=== PATIENT | female | born 1960 | race Caucasian/White ===

== ENCOUNTER → 2017-12-14 | Outpatient (CLI) | payer OTHER ==
--- NOTE | 2017-12-14 14:38 | FL ---
EXAMINATION TYPE: FL barium swallow w video DATE OF EXAM: 12/14/2017 COMPARISON: NONE HISTORY: Difficulty swallowing post carbohydrate ingestion TECHNIQUE: Fluoroscopy. FINDINGS: Fluoroscopic guidance was provided for the procedure performed in conjunction with the [facility] pathology department. Please see complete report forthcoming from the Speech Pathology departmen t. Various consistencies from thin liquid to solids were administered. Fluoroscopy time 54 seconds Number of images: 0. No aspiration or penetration was evident. No significant pooling was observed in the vallecula. There was normal propulsion of the bolus. Patient did not have any of her typical symptoms during this examination. IMPRESSION: 1. Normal modified barium swallow.
== END | disposition home or self-care (01) ==
LOC: RADFLWHC 09:48
PROVIDERS: ATTEND Family Medicine
DX: R13.10 Dysphagia, unspecified (principal)
CPT/HCPCS: 74230

== ENCOUNTER → 2019-07-18 | Outpatient (CLI) | payer MEDICARE, OTHER ==
[2019-07-18 12:38] VITALS: BP 140/76; PULSE 86; TEMP 98.1; BMI 44.0
--- NOTE | 2019-07-18 13:01 | P.HPBAR ---
Bariatric H&P - History & Physicial H&P Date: 07/18/19 History & Physicial: Visit/CC: initial clinic visit Patient initial contact: Initial weight: Initial weight in pounds: Height: 5 ft 2 in Initial BMI: Last weight: Current weight: 109.316 kg Current weight in pounds: 241.00 Current BMI: 44.0 [place] body weight (based on NIH guidelines): 49.895 kg Excess body weight loss: The patient is a 58 year-old F who presents for Bariatric Assessment. Patient known to our service from previous bariatric evaluation at [facility]. Patient interested in sleeve gastrectomy. The patient has history of diabetes, hypertension, hypercholesterolemia, asthma, GERD. Last EGD 2014. No hiatal hernia seen. Denies dysphagia. No history of DVT. No significant abdominal surgeries. The patient is a nonsmoker. BMI 44. Patient is no longer working because of visual problems related to her underlying diabetes. Patient used to work in endoscopy. Not interested in gastric bypass partly on the basis of her previous exposure to bypass complications. Review of Systems The patient denies any acute changes in vision or hearing, no dysphagia or odynophagia, no chest pain or shortness of breath, no dysuria or hematuria, no headache, no runny nose, no rectal bleeding or melena, no unexplained weight loss Past Medical History Past Medical History: Diabetes Mellitus, GERD/Reflux, Hyperlipidemia, Muscu loskeletal Disorder Additional Past Medical History / Comment(s): SOME NUMBESS LEFT HAND CAUSED FROM NERVE DAMAGE AFTER NECK SUGERY.CHRONIC BACK PAIN, HX OF BOILS-STATES CURRENTLY HAS ONE IN GROIN AREA DENIES DRAINAGE. STATES ABD CYST THAT HAS GROWN & IS PAINFUL, RED & WARM-DENIES DRAINAGE. STATES TAKING LOSARTAN FOR KIDNEYS. History of Any Multi-Drug Resistant Organisms: None Reported Past Surgical History: Back Surgery, Section, Orthopedic Surgery, Tubal Ligation Additional Past Surgical History / Comment(s): RT EYE VITRECTOMY, CERVICAL NECK FUSION, RT ROTATOR CUFF, RT CARPAL TUNNEL RELEASE. Past Anesthesia/Blood Transfusion Reactions: No Reported Reaction Past Psychological History: No Psychological Hx Reported Smoking Status: Never smoker Past Alcohol Use History: None Reported Past Drug Use History: None Reported Surgical - Exam Vital Signs Temp Pulse BP 98.1 F 86 140/76 07/18/19 12:34 07/18/19 12:34 07/18/19 12:34 Physical exam: General: Well-developed, well-nourished HEENT: Normocephalic, sclerae nonicteric Abdomen: Nontender, nondistended, left subcostal scar from previous subcutaneous mass excision Extremities: No edema Neuro: Alert and oriented Bariatric Assessment & Plan (1) Morbid obesity with BMI of 40.0-44.9, adult Narrative/Plan: 58-year-old female with history of morbid obesity and associated comorbidities. BMI 44. We'll proceed with preoperative EGD and lab work. We'll clarify whether the patient requires supervised weight loss. Patient remains interested in sleeve gastrectomy despite the potential increased risk of worsening reflux. The risks of bleeding, infection, stenosis, stricture, leak, abscess, fistula formation, peritonitis, poor weight loss, reflux, vomiting, conversion to an open procedure, aborting sleeve gastrectomy, OR, PE, DVT, and were discussed. The patient understands and wishes to proceed. Status: Acute Bariatric Checklist Checklist: Plan: Checklist: EGD: 1. Hiatal hernia: 2. H. Pylori: HgbA1c: Vitamin D: Smoking: Never smoker Primary care physician referral: dr nuno Psychiatry clearance: Cardiology clearance: Sleep study: Diet journal: VTE risk score: VTE risk level: Rehab needs at discharge:
[2019-07-19 10:38] LABS: HCT 41.7 % (34.0-46.0); HGB 13.4 gm/dL (11.4-16.0); MCH 29.5 pg (25.0-35.0); MCHC 32.1 g/dL (31.0-37.0); MCV 91.9 fL (80.0-100.0); Platelet Count 211 k/uL (150-450); RBC 4.53 m/uL (3.80-5.40); RDW 13.4 % (11.5-15.5); WBC 10.4 k/uL (3.8-10.6)
[2019-07-19 10:39] LABS: Hypochromasia Slight; Mean Platelet Volume 7.6
[2019-07-19 10:42] LABS: Hemoglobin A1C 9.3
[2019-07-19 10:53] LABS: Carbon Dioxide 27.6; Potassium 4.5
[2019-07-19 10:54] LABS: Anion Gap 7.4
[2019-07-19 10:57] LABS: BUN/Creat Ratio 23.75
[2019-07-19 10:58] LABS: Calcium 9.9
[2019-07-19 11:00] LABS: % Iron Saturation 14.33; Total Protein 6.7
[2019-07-19 11:01] LABS: Albumin 4.4
[2019-07-19 11:02] LABS: Albumin/Globulin Ratio 1.91; Globulin 2.3
[2019-07-19 11:03] LABS: Total Bilirubin 0.4
[2019-07-19 11:05] LABS: Folate, Serum 12.9
[2019-07-19 11:06] LABS: African American GFR (CKD) 96.9; Non-African American GFR(CKD) 83.6
== END | disposition home or self-care (01) ==
LOC: BARWHC3 11:54
PROVIDERS: ATTEND Surgery
DX: E66.01 Morbid (severe) obesity due to excess calories (principal); Z68.41 Body mass index [BMI] 40.0-44.9, adult; K90.89 Other intestinal malabsorption; E55.9 Vitamin D deficiency, unspecified; Z98.51 Tubal ligation status
CPT/HCPCS: 80053; 82306; 82607; 82746; 83036; 83540; 83550; 84425; 85027; 93005; 99211

== ENCOUNTER 2019-08-20 07:26 | Day surgery (SDC) | payer MEDICARE, OTHER ==
[2019-08-16 16:03] VITALS: BMI 43.1
[~2019-08-20 07:26] MED LIST: LACTATED RINGERS 1,000 ML IV SCH
[2019-08-20 07:46] VITALS: TEMP 97.6
[2019-08-20 08:00] LABS: Glucose,Whole Blood 131 mg/dL (75-99)
[2019-08-20] MEDS ORDERED: LIDOCAINE 1% INJ 10MG/ML (20 ML MDV) ONE (08:06)
[2019-08-20] MEDS ORDERED: PROPOFOL 10 MG/ML 20 ML VIAL IV ONE (08:06)
--- NOTE | 2019-08-20 08:09 | P.GSHP ---
History of Present Illness H&P Date: 08/20/19 Chief Complaint: GERD Patient here today for upper endoscopy. Patient being worked up for sleeve gastrectomy. Patient with daily reflux. Typically takes Tums. She does have a prescription for Prevacid but typically does not take it. Past Medical History Past Medical History: Diabetes Mellitus, GERD/Reflux, Hyperlipidemia, Hypertension, Musculoskeletal Disorder, Osteoarthritis (OA) Additional Past Medical History / Comment(s): SOME NUMBESS LEFT HAND CAUSED FROM NERVE DAMAGE AFTER NECK SUGERY.CHRONIC BACK PAIN, HX OF BOILS-STATES CURRENTLY HAS ONE IN GROIN AREA DENIES DRAINAGE. STATES ABD CYST THAT HAS GROWN & IS PAINFUL, RED & WARM-DENIES DRAINAGE. STATES TAKING LOSARTAN FOR KIDNEYS. History of Any Multi-Drug Resistant Organisms: None Reported Past Surgical History: Back Surgery, Section, Orthopedic Surgery, Tubal Ligation Additional Past Surgical History / Comment(s): RT EYE VITRECTOMY, CERVICAL NECK FUSION, RT ROTATOR CUFF, RT CARPAL TUNNEL RELEASE.EGD X2, COLONOSCOPY Past Anesthesia/Blood Transfusion Reactions: No Reported Reaction Past Psychological History: No Psychological Hx Reported Smoking Status: Never smoker Past Alcohol Use History: None Reported Past Drug Use History: None Reported - Past Family History Mother Family Medical History: No Reported History Medications and Allergies Home Medications Medication Instructions Recorded Confirmed Type metFORMIN HCL 1,000 mg PO BID 03/20/14 08/16/19 History L.acidoph,Paracasei, B.lactis 1 tab PO DAILY 07/18/19 08/16/19 History [Probiotic] Atorvastatin [Lipitor] 80 mg PO HS 08/16/19 08/16/19 History Dapagliflozin Propanediol [Farxiga] 10 mg PO DAILY 08/16/19 08/16/19 History Dulaglutide [Trulicity] 0.75 mg SQ DAILY 08/16/19 08/16/19 History INSULIN LISPRO (For Pump) [humaLOG 0.01 units SQ-PUMP CONTINUOUS 08/16/19 08/16/19 History (For Pump)] Lisinopril-Hctz 10-12.5 mg 1 tab PO DAILY 08/16/19 08/16/19 History [Zestoretic 10-12.5] Allergies Allergy/AdvReac Type Severity Reaction Status Date / Time losartan potassium Allergy Severe Dyspnea, Verified 08/16/19 15:38 [From Cozaar] Heart palpitations Iodinated Contrast Media Allergy Unknown ELEVATED Verified 08/16/19 15:38 [Iodinated Contrast Media - BP AND IV Dye] PULSE IV CONTRAST DYE Allergy Unknown Elevated Uncoded 08/16/19 15:38 Blood pressure & pulse. MARQUES SHAMPOO Allergy Swelling Uncoded 08/16/19 15:39 OF FACE Surgical - Exam Vital Signs Temp Pulse Resp BP Pulse Ox 97.6 F 90 20 176/81 98 08/20/19 07:42 08/20/19 07:42 08/20/19 07:42 08/20/19 07:42 08/20/19 07:42 Physical exam: General: Well-developed, well-nourished HEENT: Normocephalic, sclerae nonicteric Abdomen: Nontender, nondistended Extremities: No edema Neuro: Alert and oriented Results - Labs Abnormal Lab Results - Last 24 Hours (Table) 08/20/19 Range/Units 07:57 POC Glucose (mg/dL) 131 H (75-99) mg/dL Assessment and Plan (1) GERD (gastroesophageal reflux disease) Narrative/Plan: Will proceed with upper endoscopy at this time Current Visit: Yes Status: Acute Code(s): K21.9 - GASTRO-ESOPHAGEAL REFLUX DISEASE WITHOUT ESOPHAGITIS SNOMED Code(s): 258269927
--- NOTE | 2019-08-20 08:20 | P.PCN ---
Date of Procedure: 08/20/19 Procedure(s) Performed: Preoperative Dx: GERD, presurgical Postoperative Dx: Minimal gastritis, retained food Procedure: EGD with Bx Anesthesia: Sedation Endoscopist: Dr. Kulkarni Specimens: Antrum Endoscopic Procedure: The patient was on the endoscopy table in the left decubitus position. The Olympus gastroscope was inserted into the oropharynx and passed under direct visualization to the region of the third portion of the duodenum. From that point the scope was slowly withdrawn inspecting all surfac es carefully. There were no neoplastic inflammatory or polypoid lesions throughout the duodenum. The pylorus was widely patent. The stomach was carefully inspected. There was minimal gastritis present. The patient did have retained food in the stomach. A biopsy of the antrum took place to rule out H. pylori. Retroflexion revealed a normal hiatus. The esophagus was then carefully examined. There were no neoplastic inflammatory or polypoid lesions throughout the visualized esophagus. The patient was then taken to the recovery room in stable condition per anesthesia guidelines. Recommendations: Suspect gastroparesis given the findings of retained food. Will order a gastric emptying study. Follow-up bariatric clinic.
[2019-08-20 08:22] VITALS: PULSE 92; RESP 16
[2019-08-20 08:27] LABS: Glucose,Whole Blood 149 mg/dL (75-99)
[2019-08-20 08:38] VITALS: BP 132/74
== END 2019-08-20 08:55 ==
LOC: ORWHC2ENDO 07:26
PROVIDERS: ATTEND Surgery
DX: K21.9 Gastro-esophageal reflux disease without esophagitis (principal); K29.50 Unspecified chronic gastritis without bleeding; I10 Essential (primary) hypertension; E78.5 Hyperlipidemia, unspecified; E11.9 Type 2 diabetes mellitus without complications; M19.90 Unspecified osteoarthritis, unspecified site; Z88.8 Allergy status to other drugs, medicaments and biological substances; Z91.041 Radiographic dye allergy status; Z79.4 Long term (current) use of insulin; Z79.899 Other long term (current) drug therapy; Z96.41 Presence of insulin pump (external) (internal)
CPT/HCPCS: 43239; J2001; J2704; 88305

== ENCOUNTER → 2019-10-09 | Outpatient (CLI) | payer MEDICARE, OTHER ==
--- NOTE | 2019-10-09 12:26 | NM ---
EXAMINATION TYPE: NM gastric emptying static DATE OF EXAM: 10/09/2019 COMPARISON: NONE HISTORY: Gastroparesis Following administration of 2.1 mCi Tc 99m Sulfur Colloid with 4 OZ LIQUID EGGS, 1/2 PIECE OF TOAST, AND ICE WATER, projection images of the abdomen were obtained 10 minutes post ingestion. Patient Emptying Values 1 Hour 76 % 2 Hours 100 % 3 Hours 100 % 4 Hours 100 % Gastroesophageal reflux: None IMPRESSION: Gastric emptyin% gastric emptying at one hour suggests abnormally rapid emptying. Gastroesophageal reflux: None Gastric emptying normal percentage values: 30 minutes: <70% of retention (> 30% emptying) suggests abnormally fast emptying. 60 minutes: <90% retention (>10% emptying) is normal; less than 30% retention (>70% emptying) suggest s abnormally rapid emptying. 90 minutes: <65% retention (> 35% emptying) is normal. 120 minutes: <60% retention (> 40% emptying) is normal. 180 minutes: <30% retention (> 70% emptying) is normal. Gastric emptying T-1/2: Solid: The normal range is 60-105 minutes Liquid only: Normal range is 10-45 minutes. Liquid only-children: At 60 minutes, normal range is 44-58 % . Liquid only-infants: At 60 minutes, normal range is 32-64 %. Additional references: Gastric Emptying Scintigraphy [email or web address]://[email or web address]
== END | disposition home or self-care (01) ==
LOC: RADNMMAIN 06:58
PROVIDERS: ATTEND Surgery
DX: K31.84 Gastroparesis (principal)
CPT/HCPCS: 78264; A9541

== ENCOUNTER → 2019-10-29 | Outpatient (CLI) | payer MEDICARE, OTHER ==
[2019-10-29 15:33] VITALS: BP 139/68; PULSE 95; RESP 16; TEMP 98.2; BMI 44.2
--- NOTE | 2019-10-29 17:30 | P.BASOAP ---
Subjective Progress Note Date: 10/29/19 Principal diagnosis: Morbid obesity Patient returns to the clinic after recent EGD. Patient was found to have retained food. She was sent for gastric emptying study which showed a faster than average gastric emptying time. She would like to proceed with sleeve gastrectomy. Objective - Vital Signs Vital signs: Vital Signs Temp 98.2 F 10/29/19 15:30 Pulse 95 10/29/19 15:30 Resp 16 10/29/19 15:30 BP 139/68 10/29/19 15:30 Pulse Ox Intake & Output 10/28/19 10/29/19 10/29/19 18:59 06:59 18:59 Weight 109.769 kg - Exam Abdomen: Soft, nontender, nondistended Assessment/Plan (1) Morbid obesity with BMI of 40.0-44.9, adult Narrative/Plan: Overall patient doing well. We'll continue plans for elective sleeve gastrectomy. Gastric emptying study results reviewed with her. Discrepancy between the endoscopic findings and the study reviewed. Increased risk of chronic reflux from baseline discussed. She would like to proceed. Plan: Date: 10/29/19 Initial Weight: Initial BMI: Current Weight: 109.769 kg Current BMI: 44.2 Type of Surgery: Total Volume in Band: Previous Volume: Volume Removed: Volume Added: Band Size:
== END | disposition home or self-care (01) ==
LOC: BARWHC3 15:00
PROVIDERS: ATTEND Surgery
DX: E66.01 Morbid (severe) obesity due to excess calories (principal); Z68.41 Body mass index [BMI] 40.0-44.9, adult
CPT/HCPCS: 99211

== ENCOUNTER → 2019-11-04 | Outpatient (CLI) | payer MEDICARE, OTHER ==
[2019-11-04 13:44] VITALS: BMI 44.6
== END | disposition home or self-care (01) ==
LOC: BARWHC3 08:25
PROVIDERS: ATTEND Surgery
DX: E66.01 Morbid (severe) obesity due to excess calories (principal); Z71.3 Dietary counseling and surveillance
CPT/HCPCS: 97804

== ENCOUNTER 2020-01-13 09:24 | Inpatient (IN) | payer MEDICARE, OTHER ==
[~2020-01-13 09:24] MED LIST changes: +DEXAMETHASONE SOD PHOSPHATE 4 MG/ML 1 ML VIAL IV ONE; +HYDROmorphone 0.5 MG/0.5 ML SYRINGE IVP PRN; -LACTATED RINGERS 1,000 ML IV SCH; +LIDOCAINE 1% (10MG/ML) FOR IV START INTRADERMA PRN; +MIDAZOLAM 2 MG/2 ML VIAL IV PRN; +ONDANSETRON 4 MG/2 ML VIAL IVP ONE
[2020-01-13 10:15] LABS: Glucose,Whole Blood 115 mg/dL (75-99)
[2020-01-13] MEDS: LACTATED RINGERS 1,000 ML IV SCH (10:15)
[2020-01-13] MEDS ORDERED: ENOXAPARIN 40 MG/0.4 ML SYRINGE SQ STA (10:24)
--- NOTE | 2020-01-13 10:44 | P.GSHP ---
History of Present Illness H&P Date: 01/13/20 Chief Complaint: morbid obesity 59-year-old female known to our service. Here today for elective sleeve gastrectomy. Patient with history of diabetes, hypertension, hypercholesterolemia, asthma, and reflux. Underwent recent EGD which showed some retained gastric contents. Gastric emptying study showed quicker than normal gastric emptying. Only recently started complaining of some increased constipation. No rectal bleeding. Stools are firm. No other changes to the recent history of physical. No tobacco use. BMI 40. Previously was 44. Past Medical History Past Medical History: Diabetes Mellitus, GERD/Reflux, Hyperlipidemia, Hypertension, Musculoskeletal Disorder, Osteoarthritis (OA) Additional Past Medical History / Comment(s): CHRONIC BACK PAIN, HX OF BOILS- none currently, right hand pain related to neck problems, "put my back out" currently, recent severe constipation-thinks is probably related to low carl diet, stopped insulin pump this week because BS were so low History of Any Multi-Drug Resistant Organisms: None Reported Past Surgical History: Section, Orthopedic Surgery, Tubal Ligation Additional Past Surgical History / Comment(s): SHAMAR EYE VITRECTOMY, CERVICAL NECK FUSION, RT ROTATOR CUFF, RT CARPAL TUNNEL RELEASE.EGD X2, COLONOSCOPY, right thumb reattached after injury Past Anesthesia/Blood Transfusion Reactions: No Reported Reaction Smoking Status: Never smoker - Past Family History Mother Family Medical History: No Reported History Medications and Allergies Home Medications Medication Instructions Recorded Confirmed Type metFORMIN HCL 1,000 mg PO BID 03/20/14 01/13/20 History Atorvastatin [Lipitor] 80 mg PO HS 08/16/19 01/13/20 History Dapagliflozin Propanediol [Farxiga] 10 mg PO DAILY 08/16/19 01/13/20 History Lisinopril-Hctz 10-12.5 mg 1 tab PO DAILY 08/16/19 01/13/20 History [Zestoretic 10-12.5] Omeprazole [PriLOSEC] 20 mg PO AC-BRKFST 01/09/20 01/13/20 History Allergies Allergy/AdvReac Type Severity Reaction Status Date / Time losartan potassium Allergy Severe Dyspnea, Verified 01/13/20 10:00 [From Cozaar] Heart palpitations Iodinated Contrast Media Allergy Unknown ELEVATED Verified 01/13/20 10:00 [Iodinated Contrast Media - BP AND IV Dye] PULSE IV CONTRAST DYE Allergy Unknown Elevated Uncoded 01/13/20 10:00 Blood pressure & pulse. MARQUES SHAMPOO Allergy Swelling Uncoded 01/13/20 10:00 OF FACE Surgical - Exam Vital Signs Temp Pulse Resp BP Pulse Ox 97 F L 103 H 18 160/73 98 01/13/20 10:04 01/13/20 10:04 01/13/20 10:04 01/13/20 10:04 01/13/20 10:04 Physical exam: General: Well-developed, well-nourished HEENT: Normocephalic, sclerae nonicteric Abdomen: Nontender, nondistended Extremities: No edema Neuro: Alert and oriented Results - Labs Abnormal Lab Results - Last 24 Hours (Table) 01/13/20 Range/Units 10:12 POC Glucose (mg/dL) 115 H (75-99) mg/dL Assessment and Plan (1) Morbid obesity with BMI of 40.0-44.9, adult Narrative/Plan: Will proceed with elective laparoscopic sleeve gastrectomy at this time. The risks of bleeding, infection, stenosis, stricture, leak, abscess, fistula formation, peritonitis, poor weight loss, reflux, vomiting, conversion to an open procedure, aborting sleeve gastrectomy, MA, PE, DVT, and were discussed. The patient understands and wishes to proceed. Current Visit: No Status: Acute Code(s): E66.01 - MORBID (SEVERE) OBESITY DUE TO EXCESS CALORIES; Z68.41 - BODY MASS INDEX [BMI]40.0-44.9, ADULT SNOMED Code(s): 016512760
[2020-01-13] MEDS ORDERED: GLYCOPYRROLATE 0.2 MG/ML 2 ML VIAL ONE (11:00)
[2020-01-13] MEDS ORDERED: LIDOCAINE 1% INJ 10MG/ML (20 ML MDV) ONE (11:00)
[2020-01-13] MEDS ORDERED: ROCURONIUM 10 MG/ML (10 ML VIAL) IV ONE (11:00)
[2020-01-13] MEDS ORDERED: NEOSTIGMINE 1 MG/ML 10 ML VIAL ONE (11:00)
[2020-01-13] MEDS ORDERED: MIDAZOLAM 2 MG/2 ML VIAL ONE (11:00)
[2020-01-13] MEDS ORDERED: PROPOFOL 10 MG/ML 20 ML VIAL IV ONE (11:00)
[2020-01-13] MEDS ORDERED: SUCCINYLCHOLINE CHLORIDE 100 MG/5 ML SYR IV ONE (11:00)
[2020-01-13] MEDS ORDERED: HYDROmorphone (PF) 1 MG/ML ONE (11:00)
[2020-01-13] MEDS ORDERED: fentaNYL (PF) 50 MCG/ML 2 ML AMP ONE (11:00)
[2020-01-13] MEDS ORDERED: BUPIVACAINE (PF) 0.25% 30 ML VIAL SQ ONE ×2 (11:34)
[2020-01-13] MEDS ORDERED: LACTATED RINGERS 1,000 ML IV ONE ×2 (12:00)
[2020-01-13] MEDS ORDERED: NALOXONE 0.4 MG/ML 1 ML VIAL IV PRN (12:55)
[2020-01-13] MEDS ORDERED: HYDROmorphone 1 MG/ML 1 ML SYRINGE IVP PRN (12:55)
[2020-01-13] MEDS ORDERED: HYOSCYAMINE ORAL DROPS 1.875 MG/15 ML BOTTLE PO PRN (12:55)
[2020-01-13] MEDS ORDERED: diphenhydrAMINE 50 MG/ML 1 ML VIAL IVP PRN (12:55)
[2020-01-13] MEDS ORDERED: SIMETHICONE 40 MG/0.6 ML DROPS 2,000 MG/30 ML BOTTLE PO PRN (12:55)
--- NOTE | 2020-01-13 12:59 | P.OP ---
Date of Procedure: 01/13/20 Procedure(s) Performed: PREOPERATIVE DIAGNOSIS: Morbid obesity, hypertension, diabetes, hypercholesterolemia, GERD POSTOPERATIVE DIAGNOSIS: Same PROCEDURE: Laparoscopic sleeve gastrectomy SURGEON: Shad EBL: Minimal ANESTHESIA: General COMPLICATIONS: None OPERATIVE PROCEDURE: Patient was placed in the operating table in the supine position. She was placed under general anesthesia at that time. The abdomen was prepped and draped in sterile fashion after the patient was placed in lithotomy. A 5 mm optical trocar was used to enter the abdominal cavity in the left upper quadrant. Insufflation took place to 15 millimeters mercury. An additional right subxiphoid 5 mm trocar was then placed under direct visualization and then removed. 2 additional 5 mm trochars were placed in the right upper quadrant and left upper quadrant under direct visualization and a 15 mm trocar in the supraumbilical location. The liver was retracted using a medium Cindy liver retractor through the right subxiphoid trocar site. The hiatus was inspected. The patient had no visible hiatal hernia At that point I moved to the mid aspect of the greater curvature the stomach. The short gastric vasculature was divided using a LigaSure device proximally. I then switched and divided the short gastrics distally to a 3-4 cm from the pylorus. The dissection took place up to the left diaphragmatic crura at that point. The posterior short gastrics were likewise divided using the LigaSure device. Once the stomach was fully mobilized the blunt tipped 40-Polish bougie dilator was advanced into the stomach and advanced all the way to the prepyloric location. A black echelon 60 stapler was utilized and fired tangentially across the antrum taking care to avoid narrowing at the incisura angularis. Subsequent firings of the stapler took place. A second firing of the stapler was also a black load. A total of 3 green echelon 60 staplers with seam guard took place proximally staying on the outer edge of our dilator. Once we reached the most proximal portion of the stomach a single firing of the gold echelon 60 stapler without seen guard took place. The oral gastric tube was reinserted. The stomach was insufflated with approximately 100 mL of methylene blue. No evidence of leak or obstruction was seen. The distal aspect of the sleeve was then reapproximated to the gastrosplenic and gastrocolic ligament using a short running 2-0 strata fix suture. This was done to prevent kinking or twisting of the sleeve. Tisseel fibrin glue was used along the length of this staple line. The stomach remnant was removed from the 15 mm trocar site without difficulty. The fascia at the 15 more site was closed using interrupted 0 Vicryl sutures with the laparoscopic suture passer and Ayaan Abby technique. The insufflation was evacuated. The skin at all 5 incisions were closed using 4-0 Monocryl sutures. Skin glue was then applied. DISPOSITION: Stable to recovery room
[2020-01-13] MEDS: ONDANSETRON 4 MG/2 ML VIAL IVP PRN ×2 (13:12→22:44)
[2020-01-13] MEDS: ACETAMINOPHEN IV (For NPO) 1,000 MG in EMPTY BAG 1 BAG IVPB SCH (16:16)
[2020-01-13 16:38] LABS: Glucose,Whole Blood 150 mg/dL (75-99)
[2020-01-13] MEDS: ALBUTEROL NEBULIZED 2.5 MG/3 ML INHALATION SCH ×2 (17:19→20:01)
--- NOTE | 2020-01-13 20:58 | P.CONS ---
History of Present Illness - Reason for Consult Consult date: 01/13/20 medical management Requesting physician: Antione Kulkarni - Chief Complaint sleep gastrectomy - History of Present Illness Consultation: This is a very pleasant 59-year-old patient of Dr. Karlos Cortez. Chronic stable medical conditions include diabetes, GERD, hypertension, hyperlipidemia, osteoarthritis, chronic low back pain, right hand pain from cervical spine radiculopathy, has been on insulin pump recently. Patient has undergone sleeve gastrectomy. Some pain at the operative site. Slight nausea. Laying in bed. Has not iced use. No chest pain or shortness breath. Denies any cardiac history. Laying in bed Review of systems: GEN.: None EYES: None HEENT: None NECK: None RESPIRATORY: None CARDIOVASCULAR: None GASTROINTESTINAL: As above GENITOURINARY: None MUSCULOSKELETAL: Some joint pains LYMPHATICS: None HEMATOLOGICAL: None PSYCHIATRY: None NEUROLOGICAL: None Past medical history to include: GERD, diabetes, hypertension, hyperlipidemia, osteoarthritis, right cervical spine radiculopathy Social history: . Does not smoke or drink alcohol. Family history: Reviewed, noncontributory to presentation Physical examination: VITAL SIGNS: 98.5, 18, 16, 134/80, 95% on room air GENERAL: BMI 40.8, laying in bed, comfortable. EYES: Pupils equal. Conjunctiva normal. HEENT: External appearance of nose and ears normal, oral cavity grossly normal. NECK: JVD not raised; masses not palpable. HEART: First and second heart sounds are normal; no edema. LUNGS: Respiratory rate normal; clear to auscultation. ABDOMEN: Soft, tender, no guarding rigidity, liver spleen not palpable, no masses palpable. PSYCH: Alert and oriented x3; mood and affect normal. NEUROLOGICAL: Cranial nerves grossly intact; no facial asymmetry, power and sensation grossly intact. LYMPHATICS: No lymph nodes palpable in the axilla and neck Labs: Accu-Cheks 115, 150 Assessment: -Morbid obesity BMI 40.8 -Laparoscopic sleeve gastrectomy -Diabetes mellitus type 2 -GERD -Hyperlipidemia -Essential hypertension -Primary osteoarthritis -Cervical spine with right arm radiculopathy Plan: Patient's currently nothing by mouth except for ice chips. Resume home med ications if okay with Dr. Sebastian. activity as tolerated. Patient to follow-up with family doctor but discharge. Thank you Dr. [place] Past Medical History Past Medical History: Diabetes Mellitus, GERD/Reflux, Hyperlipidemia, Hypertension, Musculoskeletal Disorder, Osteoarthritis (OA) Additional Past Medical History / Comment(s): CHRONIC BACK PAIN, HX OF BOILS- none currently, right hand pain related to neck problems, "put my back out" currently, recent severe constipation-thinks is probably related to low carl diet, stopped insulin pump this week because BS were so low History of Any Multi-Drug Resistant Organisms: None Reported Past Surgical History: Section, Orthopedic Surgery, Tubal Ligation Additional Past Surgical History / Comment(s): SHAMAR EYE VITRECTOMY, CERVICAL NECK FUSION, RT ROTATOR CUFF, RT CARPAL TUNNEL RELEASE.EGD X2, COLONOSCOPY, right thumb reattached after injury Past Anesthesia/Blood Transfusion Reactions: No Reported Reaction Past Psychological History: No Psychological Hx Reported Smoking Status: Never smoker Past Alcohol Use History: None Reported Past Drug Use History: None Reported - Past Family History Mother Family Medical History: No Reported History Medications and Allergies Home Medications Medication Instructions Recorded Confirmed Type metFORMIN HCL 1,000 mg PO BID 03/20/14 01/13/20 History Atorvastatin [Lipitor] 80 mg PO HS 08/16/19 01/13/20 History Dapagliflozin Propanediol [Farxiga] 10 mg PO DAILY 08/16/19 01/13/20 History Lisinopril-Hctz 10-12.5 mg 1 tab PO DAILY 08/16/19 01/13/20 History [Zestoretic 10-12.5] Omeprazole [PriLOSEC] 20 mg PO AC-BRKFST 01/09/20 01/13/20 History Allergies Allergy/AdvReac Type Severity Reaction Status Date / Time losartan potassium Allergy Severe Dyspnea, Verified 01/13/20 10:00 [From Cozaar] Heart palpitations Iodinated Contrast Media Allergy Unknown ELEVATED Verified 01/13/20 10:00 [Iodinated Contrast Media - BP AND IV Dye] PULSE IV CONTRAST DYE Allergy Unknown Elevated Uncoded 01/13/20 10:00 Blood pressure & pulse. MARQUES SHAMPOO Allergy Swelling Uncoded 01/13/20 10:00 OF FACE Physical Exam Vitals: Vital Signs Temp Pulse Pulse Pulse Resp BP Pulse Ox 01/13/20 20:22 101 H 01/13/20 20:04 105 H 95 01/13/20 17:32 80 01/13/20 17:20 76 01/13/20 15:00 98.5 F 80 16 134/80 95 01/13/20 14:46 89 16 164/72 100 01/13/20 14:30 88 16 148/72 100 01/13/20 14:15 85 16 139/68 100 01/13/20 14:03 79 16 148/68 100 01/13/20 13:47 81 16 137/65 100 01/13/20 13:31 84 16 138/65 100 01/13/20 13:17 78 16 125/65 100 01/13/20 13:00 72 16 131/76 100 01/13/20 12:59 97.9 F 77 14 125/59 99 01/13/20 10:04 97 F L 103 H 18 160/73 98 Intake and Output 01/13/20 01/13/20 01/13/20 06:59 14:59 22:59 Intake Total 1550 Output Total 10 Balance 1540 Intake: IV 1550 Output: Estimated Blood Loss 10 Other: Weight 101.1 kg 101.1 kg Results Labs: Abnormal Lab Results - Last 24 Hours (Table) 01/13/20 01/13/20 Range/Units 10:12 16:37 POC Glucose (mg/dL) 115 H 150 H (75-99) mg/dL
[2020-01-13] MEDS ORDERED: LORazepam 2 MG/ML INJ IV PRN (21:32)
[2020-01-13] MEDS: IPRATROPIUM-ALBUTEROL 3 ML NEB INHALATION PRN (21:37)
[2020-01-13 21:48] LABS: Glucose,Whole Blood 186 mg/dL (75-99)
[2020-01-13] MEDS: 0.9% NACL WITH KCL 20 MEQ/L 1,000 ML IV SCH ×2 (22:13→22:37)
[2020-01-13] MEDS: ENOXAPARIN 40 MG/0.4 ML SYRINGE SQ SCH (22:13)
[2020-01-14] MEDS: ACETAMINOPHEN IV (For NPO) 1,000 MG in EMPTY BAG 1 BAG IVPB SCH ×4 (00:40→17:44)
--- NOTE | 2020-01-14 01:07 | P.EN ---
A team note Activated at 2114. Patient seen at the bedside shortly after. Patient aborted that she had developed acute wheezing and chest tightness while using her incentive spirometer. By time of my evaluation, the patient had reported that her wheezing had essentially resolved and that she felt significantly better. The patient's vitals at the bedside were BP 106/64, pulse 110, SpO2 98% on room air. The patient noted that she has a history of anxiety and that he has previously had episodes of panic attacks where she would develop chest discomfort and shortness of breath. The patient reported that this episode does feel similar to her previous panic attacks. She also noted history of mild intermittent asthma. On examination, the patient appeared to be somewhat anxious. Lung examination revealed mild expiratory wheezing with no rhonchi or rales. Lower extremity examination was unremarkable with no swelling, erythema, or tenderness noted. Cardiovascular examination revealed an audible S1 and S2 with regular rate and rhythm and no audible murmurs. The primary team ordered Ativan and DuoNeb's for the patient.
[2020-01-14] MEDS: 0.9% NACL WITH KCL 20 MEQ/L 1,000 ML IV SCH (05:48)
[2020-01-14 06:50] LABS: Glucose,Whole Blood 165 mg/dL (75-99)
[2020-01-14 07:02] LABS: Basophils % (A) 0 %; Eosinophils # (A) 0.1 k/uL (0-0.7); Eosinophils % (A) 1 %; HCT 37.6 % (34.0-46.0); HGB 11.9 gm/dL (11.4-16.0); Lymphocytes # (A) 1.5 k/uL (1.0-4.8); Lymphocytes % (A) 13 %; MCH 28.2 pg (25.0-35.0); MCHC 31.7 g/dL (31.0-37.0); MCV 88.8 fL (80.0-100.0); Mean Platelet Volume 7.5; Monocytes # (A) 0.6 k/uL (0-1.0); Monocytes % (A) 5 %; Neutrophils # (A) 9.7 k/uL (1.3-7.7); Neutrophils % (A) 81 %; Platelet Count 218 k/uL (150-450); RBC 4.23 m/uL (3.80-5.40); RDW 13.6 % (11.5-15.5)
[2020-01-14] MEDS: LACTATED RINGERS 1,000 ML IV SCH (07:19)
[2020-01-14] MEDS: IPRATROPIUM-ALBUTEROL 3 ML NEB INHALATION PRN (08:42)
[2020-01-14] MEDS: ALBUTEROL NEBULIZED 2.5 MG/3 ML INHALATION SCH ×4 (08:45→20:07)
[2020-01-14 09:26] LABS: African American GFR (CKD) 47.2 (60.0-200.0); Anion Gap 14.6 mmol/L (4.00-12.00); Calcium 9.4 mg/dL (8.7-10.3); Carbon Dioxide 23.4 mmol/L (21.6-31.8); Non-African American GFR(CKD) 40.7 (60.0-200.0); Potassium 4.8 mmol/L (3.5-5.5)
[2020-01-14] MEDS: ONDANSETRON 4 MG/2 ML VIAL IVP PRN (09:42)
[2020-01-14] MEDS: 1: MVI, ADULT NO.4 WITH VIT K 10 ML, THIAMINE 100 MG, FOLIC ACID 1 MG, POTASSIUM CHLORID IV SCH ×12 (11:10→20:25)
[2020-01-14] MEDS: ENOXAPARIN 40 MG/0.4 ML SYRINGE SQ SCH ×2 (11:11→22:19)
[2020-01-14] MEDS: PANTOPRAZOLE 40 MG/10 ML VIAL IV SCH (11:11)
[2020-01-14 11:33] LABS: Glucose,Whole Blood 143 mg/dL (75-99)
--- NOTE | 2020-01-14 11:46 | P.PN ---
<Bhargavi Long - Last Filed: 01/14/20 11:36> Subjective Progress Note Date: 01/14/20 CHIEF COMPLAINT: Morbid obesity HISTORY OF PRESENT ILLNESS: Status post laparoscopic sleeve gastrectomy, postop day #1. Patient complaining of stomach bloating with occasional nausea. Her upper GI is pending. Yesterday, MICHELLE was called for shortness of breath and wheezing while using her incentive spirometer. She was slightly tachycardic with a heart rate of 110 at the time otherwise vitals were stable. Patient has a known history of anxiety and felt that her symptoms were similar to when she has her panic attacks. Patient had been started on Ativan and updraft treatments. Patient reports feeling better today. She denies any shortness of breath or wheezing. She admits to an occasional cough. Patient now refusing updraft treatments. She is on room air satting at 98%. Heart rate 103 BP 146/78 Afebrile WBC12.0 hemoglobin 11.9 magnesium 2.0 PHYSICAL EXAM: VITAL SIGNS: Reviewed. GENERAL: Well-developed in no acute distress. HEENT: No sclera icterus. Extraocular movements grossly intact. Moist buccal mucosa. Head is atraumatic, normocephalic. ABDOMEN: Soft. mildly distended Nontender. NEUROLOGIC: Alert and oriented. Cranial nerves II through XII grossly intact. ASSESSMENT: 1. morbid obesity status post laparoscopic sleeve gastrectomy 2. Hypertension 3. Diabetes mellitus 4. Hypercholesterolemia 5. GERD PLAN: -follow-up on upper GI results -Continue pain medication as needed -Continue Zofran as needed for nausea -Educating nursing staff to use the Mylicon drops -Encouraged patient to ambulate -Continue Ativan as needed for anxiety -Continue GI prophylaxis Protonix and DVT prophylaxis Lovenox Physician Customer Security Clerk note has been reviewed by physician. Signing provider agrees with the documented findings, assessment, and plan of care. Objective - Vital Signs Vital signs: Vital Signs Temp 98.5 F 01/14/20 07:29 Pulse 103 H 01/14/20 07:29 Resp 18 01/14/20 07:29 BP 146/78 01/14/20 07:29 Pulse Ox 98 01/14/20 07:29 Intake & Output 01/13/20 01/14/20 01/14/20 18:59 06:59 18:59 Intake Total 1550 Output Total 10 Balance 1540 Weight 101.1 kg Intake: IV 1550 Output: Estimated Blood Loss 10 Other: Voiding Method Toilet - Labs CBC & Chem 7: 01/14/20 06:31 01/14/20 06:31 Labs: Abnormal Lab Results - Last 24 Hours (Table) 01/13/20 01/13/20 01/14/20 Range/Units 16:37 21:46 06:31 WBC 12.0 H (3.8-10.6) k/uL Neutrophils # 9.7 H (1.3-7.7) k/uL Anion Gap (4.00-12.00) mmol/L Est GFR (CKD-EPI)AfAm (60.0-200.0) Est GFR (CKD-EPI)NonAf (60.0-200.0) POC Glucose (mg/dL) 150 H 186 H (75-99) mg/dL 01/14/20 01/14/20 01/14/20 Range/Units 06:31 06:48 11:31 WBC (3.8-10.6) k/uL Neutrophils # (1.3-7.7) k/uL Anion Gap 14.60 H (4.00-12.00) mmol/L Est GFR (CKD-EPI)AfAm 47.2 L (60.0-200.0) Est GFR (CKD-EPI)NonAf 40.7 L (60.0-200.0) POC Glucose (mg/dL) 165 H 143 H (75-99) mg/dL <Antione Kulkarni - Last Filed: 01/14/20 18:47> Subjective Patient doing better today. Had an episode last night of anxiety and trouble breathing. That has resolved. Complaining of a headache. Otherwise pain fairly well controlled. No nausea or vomiting. Tolerating clear liquids. Upper GI reviewed. No evidence of leak or obstruction. Recheck labs tomorrow. We'll add Toradol for pain control. Objective - Vital Signs Vital signs: Vital Signs Temp 98.8 F 01/14/20 14:00 Pulse 93 01/14/20 14:00 Resp 18 01/14/20 14:00 BP 135/76 01/14/20 14:00 Pulse Ox 98 01/14/20 14:00 Intake & Output 01/13/20 01/14/20 01/14/20 18:59 06:59 18:59 Intake Total 1550 Output Total 10 Balance 1540 Weight 101.1 kg 101.1 kg Intake: IV 1550 Output: Estimated Blood Loss 10 Other: Voiding Method Toilet # Voids 2 - Labs CBC & Chem 7: 01/14/20 06:31 01/14/20 06:31 Labs: Abnormal Lab Results - Last 24 Hours (Table) 01/13/20 01/14/20 01/14/20 Range/Units 21:46 06:31 06:31 WBC 12.0 H (3.8-10.6) k/uL Neutrophils # 9.7 H (1.3-7.7) k/uL Anion Gap 14.60 H (4.00-12.00) mmol/L Est GFR (CKD-EPI)AfAm 47.2 L (60.0-200.0) Est GFR (CKD-EPI)NonAf 40.7 L (60.0-200.0) POC Glucose (mg/dL) 186 H (75-99) mg/dL 01/14/20 01/14/20 01/14/20 Range/Units 06:48 11:31 16:35 WBC (3.8-10.6) k/uL Neutrophils # (1.3-7.7) k/uL Anion Gap (4.00-12.00) mmol/L Est GFR (CKD-EPI)AfAm (60.0-200.0) Est GFR (CKD-EPI)NonAf (60.0-200.0) POC Glucose (mg/dL) 165 H 143 H 153 H (75-99) mg/dL Assessment and Plan (1) Morbid obesity with BMI of 40.0-44.9, adult Current Visit: No Status: Acute Code(s): E66.01 - MORBID (SEVERE) OBESITY DUE TO EXCESS CALORIES; Z68.41 - BODY MASS INDEX [BMI]40.0-44.9, ADULT SNOMED Code(s): 535520251
[2020-01-14 12:05] VITALS: BMI 40.7
--- NOTE | 2020-01-14 12:31 | FL ---
EXAMINATION TYPE: FL UGI DATE OF EXAM: 01/14/2020 COMPARISON: None HISTORY: Post gastric sleeve TECHNIQUE: A single contrast UGI study is performed. FINDINGS: Contrast passes from the distal esophagus through the gastric sleeve with mild hesitancy. N o extravasation of contrast is evident. No free air is noted during this examination. Overhead radiographs were obtained which are unremarkable. 30 seconds fluoroscopy time was provided. 49 images are obtained. IMPRESSIONS: 1. Normal post gastric sleeve with mild hesitancy. No extravasation.
[2020-01-14 16:38] LABS: Glucose,Whole Blood 153 mg/dL (75-99)
[2020-01-14] MEDS: KETOROLAC 15 MG/ML 1 ML VIAL IVP SCH (20:22)
[2020-01-14 20:26] LABS: Glucose,Whole Blood 114 mg/dL (75-99)
--- NOTE | 2020-01-14 23:58 | P.PN ---
Progress Note - Text Progress Note Date: 01/14/20 - Chief Complaint sleep gastrectomy - History of Present Illness Consultation: This is a very pleasant 59-year-old patient of Dr. Karlos Cortez. Chronic stable medical conditions include diabetes, GERD, hypertension, hyperlipidemia, osteoarthritis, chronic low back pain, right hand pain from cervical spine radiculopathy, has been on insulin pump recently. Patient has undergone sleeve gastrectomy. Today-laying in bed. Comfortable. Had some slight wheezing earlier today. No better. On a bariatric clear liquid diet Review of systems: Was done for constitutional, cardiovascular, GI, pulmonary. relevant finding as above Active Medications Albuterol Sulfate (Albuterol Nebulized 2.5 Mg/3 Ml) 2.5 mg INHALATION RT-QID [facility] Last Admin: 01/14/20 20:07 Dose: Not Given Documented by: Albuterol/Ipratropium (Ipratropium-Albuterol 3 Ml Neb) 3 ml INHALATION RT-Q4H PRN PRN Reason: Shortness Of Breath Or Wheezing Last Admin: 01/14/20 08:42 Dose: 3 ml Documented by: Diphenhydramine HCl (Diphenhydramine 50 Mg/Ml 1 Ml Vial) 25 mg IVP Q6HR PRN PRN Reason: Itching Enoxaparin Sodium (Enoxaparin 40 Mg/0.4 Ml Syringe) 40 mg SQ Q12H [facility] Last Admin: 01/14/20 22:19 Dose: 40 mg Documented by: Hydromorphone HCl (Hydromorphone 1 Mg/Ml 1 Ml Syringe) 1 mg IVP Q3HR PRN PRN Reason: Pain Last Admin: 01/13/20 16:15 Dose: 1 mg Documented by: Hyoscyamine (Hyoscyamine Oral Drops 1.875 Mg/15 Ml Bottle) 0.125 mg PO Q6HR PRN PRN Reason: Esophageal Spasm Lactated Ringer's (Lactated Ringers) 1,000 mls @ 20 mls/hr IV .Q24H [facility] Last Admin: 01/14/20 07:19 Dose: Not Given Documented by: Parenteral Vitamin Supplement 10 ml/ Thiamine HCl 100 mg/Folic Acid 1 mg/ Potassium Chloride 20 meq/ Sodium Chloride 1,021.2 mls @ 100 mls/hr IV .BY DURATION [facility] Last Admin: 01/14/20 11:10 Dose: 100 mls/hr Documented by: Potassium Chloride/Sodium Chloride (Ns-Kcl 20 Meq/L Iv Solution) 1,000 mls @ 100 mls/hr IV .BY DURATION [facility] Last Admin: 01/14/20 20:25 Dose: Not Given Documented by: Acetaminophen 1,000 mg/ IV (Solution) 100 mls @ 400 mls/hr IVPB Q6HR [facility] Last Admin: 01/14/20 17:44 Dose: 400 mls/hr Documented by: Ketorolac Tromethamine (Ketorolac 15 Mg/Ml 1 Ml Vial) 15 mg IVP Q6HR [facility] Stop: 01/17/20 19:01 Last Admin: 01/14/20 20:22 Dose: 15 mg Documented by: Lidocaine HCl (Lidocaine 1% (10mg/Ml) For Iv Start) 0.1 ml INTRADERMA PER PROTOCOL PRN PRN Reason: IV Start Last Admin: 01/13/20 10:16 Dose: 0.1 ml Documented by: Lorazepam (Lorazepam 2 Mg/Ml Inj) 1 mg IV Q4HR PRN PRN Reason: Anxiety Last Admin: 01/13/20 22:14 Dose: 1 mg Documented by: Naloxone HCl (Naloxone 0.4 Mg/Ml 1 Ml Vial) 0.2 mg IV Q2M PRN PRN Reason: Opioid Reversal Ondansetron HCl (Ondansetron 4 Mg/2 Ml Vial) 4 mg IVP Q8HR PRN PRN Reason: Nausea And Vomiting Last Admin: 01/14/20 09:42 Dose: 4 mg Documented by: Pantoprazole Sodium (Pantoprazole 40 Mg/10 Ml Vial) 40 mg IV DAILY [facility] Last Admin: 01/14/20 11:11 Dose: 40 mg Documented by: Simethicone (Simethicone 40 Mg/0.6 Ml Drops 2,000 Mg/30 Ml Bottle) 40 mg PO Q6HR PRN PRN Reason: Bloating Physical examination: VITAL SIGNS: 98.8, 93, 18, 135 with 76, 98% room air GENERAL: BMI 40.8, laying in bed, comfortable. EYES: Pupils equal. Conjunctiva normal. NECK: JVD not raised; masses not palpable. HEART: First and second heart sounds are normal; no edema. LUNGS: Respiratory rate normal; clear to auscultation. ABDOMEN: Soft, tender, no guarding rigidity, liver spleen not palpable, no masses palpable. PSYCH: Alert and oriented x3; mood and affect normal. Labs: January 13: White count 12 hemoglobin 11.9 potassium 4.8 creatinine 1.4 Accu-Cheks 115, 150 Assessment: -Morbid obesity BMI 40.8 -Laparoscopic sleeve gastrectomy -Diabetes mellitus type 2 -GERD -Hyperlipidemia -Essential hypertension -Primary osteoarthritis -Cervical spine with right arm radiculopathy Plan: Continue with bariatric clear liquid diet. Other medications to continue. Follow Accu-Cheks. Hold off any hypoglycemics. Discussed with the patient. Thank you Dr. Sebastian
[2020-01-15] MEDS: KETOROLAC 15 MG/ML 1 ML VIAL IVP SCH ×3 (00:12→14:40)
[2020-01-15] MEDS: ACETAMINOPHEN IV (For NPO) 1,000 MG in EMPTY BAG 1 BAG IVPB SCH ×3 (00:13→14:39)
[2020-01-15] MEDS: 1: MVI, ADULT NO.4 WITH VIT K 10 ML, THIAMINE 100 MG, FOLIC ACID 1 MG, POTASSIUM CHLORID IV SCH ×12 (04:44)
[2020-01-15] MEDS: LACTATED RINGERS 1,000 ML IV SCH (04:52)
[2020-01-15 06:39] LABS: Basophils % (A) 0 %; Eosinophils # (A) 0.2 k/uL (0-0.7); Eosinophils % (A) 2 %; HCT 34.6 % (34.0-46.0); HGB 11.2 gm/dL (11.4-16.0); Lymphocytes # (A) 1.8 k/uL (1.0-4.8); Lymphocytes % (A) 21 %; MCH 28.8 pg (25.0-35.0); MCHC 32.4 g/dL (31.0-37.0); Mean Platelet Volume 7.3; Monocytes # (A) 0.4 k/uL (0-1.0); Monocytes % (A) 5 %; Neutrophils # (A) 5.9 k/uL (1.3-7.7); Neutrophils % (A) 71 %; Platelet Count 164 k/uL (150-450); RBC 3.89 m/uL (3.80-5.40); RDW 13.6 % (11.5-15.5); WBC 8.4 k/uL (3.8-10.6)
[2020-01-15 06:40] LABS: Glucose,Whole Blood 114 mg/dL (75-99)
[2020-01-15 07:54] VITALS: BP 110/71; PULSE 72; RESP 18; TEMP 97.5
[2020-01-15] MEDS: PANTOPRAZOLE 40 MG/10 ML VIAL IV SCH (08:53)
[2020-01-15] MEDS: ENOXAPARIN 40 MG/0.4 ML SYRINGE SQ SCH (08:53)
[2020-01-15] MEDS: ALBUTEROL NEBULIZED 2.5 MG/3 ML INHALATION SCH ×2 (09:13→12:53)
[2020-01-15 11:35] LABS: Glucose,Whole Blood 131 mg/dL (75-99)
--- NOTE | 2020-01-15 12:15 | P.DS ---
<Bhargavi Long - Last Filed: 01/15/20 12:13> Providers Expected date of discharge: 01/15/20 Hospital Course: Discharge diagnosis 1. morbid obesity status post laparoscopic sleeve gastrectomy 2. Hypertension 3. Diabetes mellitus 4. Hypercholesterolemia 5. GERD Hospital course This is a 59-year-old female with a known history of morbid obesity, hypertension, diabetes mellitus type 2, hypercholesterolemia and GERD. She is status post laparoscopic sleeve gastrectomy. Patient tolerated surgery well. Upper GI results which showed normal post gastric sleeve with mild hesitancy. No extravasation. No evidence of leak. Patient is tolerating diet. Her pain is controlled. She's afebrile. She is up and ambulating. She is having flatus. Patient is stable for discharge home. Please refer to chart for any further details. Physician Cement Truck Loader note has been reviewed by physician. Signing provider agrees with the documented findings, assessment, and plan of care. Patient Condition at Discharge: Stable Plan - Discharge Summary Discharge Rx Participant: Yes New Discharge Prescriptions: New bisacodyL [Dulcolax] 5 mg PO DAILY PRN #10 tablet. PRN Reason: Constipation Simethicone 40 mg/0.6 ml Drops [Mylicon Drops] 40 mg PO [facility] PRN #30 ml PRN Reason: Gas Omeprazole [PriLOSEC] 40 mg PO DAILY #30 capsule. traMADol HCL [Ultram] 50 mg PO Q6HR PRN 3 Days #12 tab PRN Reason: Pain Ondansetron Odt [Zofran Odt] 4 mg PO Q8HR PRN #9 tab PRN Reason: Nausea Continue Lisinopril-Hctz 10-12.5 mg [Zestoretic 10-12.5] 1 tab PO DAILY Atorvastatin [Lipitor] 80 mg PO HS Discontinued metFORMIN HCL 1,000 mg PO BID Dapagliflozin Propanediol [Farxiga] 10 mg PO DAILY Omeprazole [PriLOSEC] 20 mg PO [facility] Discharge Medication List Atorvastatin [Lipitor] 80 mg PO HS 08/16/19 [History] Lisinopril-Hctz 10-12.5 mg [Zestoretic 10-12.5] 1 tab PO DAILY 08/16/19 [History] Omeprazole [PriLOSEC] 40 mg PO DAILY #30 capsule. 01/15/20 [Rx] Ondansetron Odt [Zofran Odt] 4 mg PO Q8HR PRN #9 tab 01/15/20 [Rx] Simethicone 40 mg/0.6 ml Drops [Mylicon Drops] 40 mg PO [facility] PRN #30 ml 01/15/20 [Rx] bisacodyL [Dulcolax] 5 mg PO DAILY PRN #10 tablet. 01/15/20 [Rx] traMADol HCL [Ultram] 50 mg PO Q6HR PRN 3 Days #12 tab 01/15/20 [Rx] Follow up Appointment(s)/Referral(s): Antione Kulkarni MD [Medical Doctor] - 01/17/20 10:00 am Karlos Cortez MD [Primary Care Provider] - 1 Week (Please call office for your appointment.) Patient Instructions/Handouts: Nutrition after Bariatric Surgery (DC), Laparoscopic Sleeve Gastrectomy (DC), Laparoscopic Sleeve Gastrectomy (GEN) Activity/Diet/Wound Care/Special Instructions: No driving while taking ultram No lifting over 10 pounds You may shower. No soaking or tub baths for 2 weeks Very light activity until you are reevaluated at your follow up appointment with your surgeon No straws, caffeine or carbonated beverages Cut or crush all pills to smaller than the size of a tic tac check AC daily am- keep log daily am BP check Discharge Disposition: HOME SELF-CARE <Antione Kulkarni - Last Filed: 01/15/20 17:19> Providers Date of admission: 01/13/20 09:24 Attending physician: Antione Kulkarni Consults: 01/13/20 12:55 Consult Physician Routine Consulting Provider: Artem Dominguez Consult Reason/Comments: medical management Do you want consulting provider notified?: Yes Primary care physician: Karlos Cortez - Discharge Diagnosis(es) (1) Morbid obesity with BMI of 40.0-44.9, adult Status: Acute Hospital Course: As above. Patient doing well today. Tolerating liquids. May discharge. Follow-up one week.
--- NOTE | 2020-01-16 19:42 | P.PN ---
Progress Note - Text Progress Note Date: 01/15/20 - Chief Complaint sleep gastrectomy Consultation: This is a very pleasant 59-year-old patient of Dr. Karlos Cortez. Chronic stable medical conditions include diabetes, GERD, hypertension, hyperlipidemia, osteoarthritis, chronic low back pain, right hand pain from cervical spine radiculopathy, has been on insulin pump recently. Patient has undergone sleeve gastrectomy. Today-doing well. Ambulating. Pain control. Tolerating bariatric liquid diet. Discussed with the patient. To hold off oral hypoglycemics. Follow Accu- Cheks. Review of systems: Was done for constitutional, cardiovascular, GI, pulmonary. relevant finding as above Current medications reviewed in today's electronic records Physical examination: VITAL SIGNS: 97.5, 72, 18, 110/71, 95% room air GENERAL: Sitting up in a chair, comfortable EYES: Pupils equal. Conjunctiva normal. NECK: JVD not raised; masses not palpable. HEART: First and second heart sounds are normal; no edema. LUNGS: Respiratory rate normal; clear to auscultation. ABDOMEN: Soft, non-tender, no guarding rigidity, liver spleen not palpable, no masses palpable. PSYCH: Alert and oriented x3; mood and affect normal. Labs: January 14: White count 8.4 hemoglobin 11.2 platelets 164 Ohdl-Hweip-110, 131 January 13: White count 12 hemoglobin 11.9 potassium 4.8 creatinine 1.4 Accu-Cheks 115, 150 Assessment: -Morbid obesity BMI 40.8 -Laparoscopic sleeve gastrectomy -Diabetes mellitus type 2 -GERD -Hyperlipidemia -Essential hypertension -Primary osteoarthritis -Cervical - right arm radiculopathy Plan: Discontinue oral hypoglycemics. Check Accu-Cheks daily. Discussed with preet kee Thank you Dr. Sebastian
== END 2020-01-15 15:52 | disposition home or self-care (01) | DRG 621 ==
LOC: 2ORMAIN 09:24 → 4SSUR 14:52
PROVIDERS: ADMIT Surgery; ATTEND Surgery
PROC: 0DB64Z3 Excision of Stomach, Percutaneous Endoscopic Approach, Vertical (ICD-10-PCS; principal; 2020-01-13 11:15)
DX: E66.01 Morbid (severe) obesity due to excess calories (principal); E11.9 Type 2 diabetes mellitus without complications; Z68.41 Body mass index [BMI] 40.0-44.9, adult; J45.20 Mild intermittent asthma, uncomplicated; E78.00 Pure hypercholesterolemia, unspecified; E78.5 Hyperlipidemia, unspecified; F41.0 Panic disorder [episodic paroxysmal anxiety]; I10 Essential (primary) hypertension; K21.9 Gastro-esophageal reflux disease without esophagitis; M19.91 Primary osteoarthritis, unspecified site; M54.12 Radiculopathy, cervical region; G89.29 Other chronic pain; M54.5 Low back pain; R51.9 Headache, unspecified; Z98.1 Arthrodesis status; Z79.899 Other long term (current) drug therapy; Z79.84 Long term (current) use of oral hypoglycemic drugs; Z88.8 Allergy status to other drugs, medicaments and biological substances; Z91.041 Radiographic dye allergy status; Z98.51 Tubal ligation status; Z98.890 Other specified postprocedural states; Z86.69 Personal history of other diseases of the nervous system and sense organs; Z87.39 Personal history of other diseases of the musculoskeletal system and connective tissue
CPT/HCPCS: 74240; 80051; 82310; 82565; 83735; 84100; 84520; 85025; 88307; 94640; 94760; 94762

== ENCOUNTER → 2020-01-17 | Outpatient (CLI) | payer MEDICARE, OTHER ==
[2020-01-17 10:30] VITALS: BP 143/78; PULSE 80; TEMP 98.2; BMI 40.6
== END | disposition home or self-care (01) ==
LOC: BARWHC3 09:58
PROVIDERS: ATTEND Surgery
DX: Z48.815 Encounter for surgical aftercare following surgery on the digestive system (principal); Z98.84 Bariatric surgery status
CPT/HCPCS: 99211

== ENCOUNTER → 2020-01-28 | Outpatient (CLI) | payer MEDICARE, OTHER ==
[2020-01-28 15:11] VITALS: BP 119/76; PULSE 79; RESP 16; TEMP 98.1; BMI 39.5
--- NOTE | 2020-01-28 16:29 | P.BASOAP ---
Subjective Progress Note Date: 01/28/20 Principal diagnosis: Morbid obesity Patient returns after recent sleeve gastrectomy. Patient having issues with elevated blood sugars. Patient with adequate weight loss. No tachycardia. Has not been drinking much in terms of total liquid volume. Also has not been doing much in terms of protein intake. Patient unable to adequately state how much liquid and protein she is ingesting. Denies nausea or vomiting. Denies pain. No heartburn. Patient states that she has been in contact with her primary care physician and her digital photographer. Patient concerned about weight loss expectations. Despite preoperative discussion patient is now concerned that if she does not get down to 120 pounds she will be dissatisfied and states that she possibly should not have had the surgery performed. States that she can lose that much weight on her own without surgery and has done so in the past. Objective - Vital Signs Vital signs: Vital Signs Temp 98.1 F 01/28/20 15:09 Pulse 79 01/28/20 15:09 Resp 16 01/28/20 15:09 BP 119/76 01/28/20 15:09 Pulse Ox Intake & Output 01/27/20 01/28/20 01/28/20 18:59 06:59 18:59 Weight 98.118 kg - Exam Abdomen: Soft, nondistended, incisions clean and dry, epigastric incision with very slight erythema, nontender Assessment/Plan (1) Morbid obesity with BMI of 40.0-44.9, adult Narrative/Plan: 59-year-old female with morbid obesity. Discussed importance of liquid and protein intake. Discussed with the patient needs to be more involved with rec ording the total volume of both protein and liquid. Discussed appropriate expectations postoperatively for weight loss. Patient will discuss her elevated blood sugars again with her digital photographer by phone. She will return in 2-3 weeks for recheck. We'll check one month labs at that time. Plan: Date: 01/28/20 Initial Weight: 981.574 kg Initial BMI: 395.7 Current Weight: 98.118 kg Current BMI: 39.5 Type of Surgery: Total Volume in Band: Previous Volume: Volume Removed: Volume Added: Band Size:
== END | disposition home or self-care (01) ==
LOC: BARWHC3 13:46
PROVIDERS: ATTEND Surgery
DX: E66.01 Morbid (severe) obesity due to excess calories (principal); Z68.41 Body mass index [BMI] 40.0-44.9, adult; Z71.3 Dietary counseling and surveillance
CPT/HCPCS: 97803; G0463; 99211

== ENCOUNTER → 2020-02-18 | Outpatient (CLI) | payer MEDICARE, OTHER ==
[2020-02-18 13:15] VITALS: BP 135/72; PULSE 68; RESP 16; TEMP 98.3; BMI 38.7
[2020-02-18 14:36] LABS: HCT 38.7 % (34.0-46.0); HGB 12.8 gm/dL (11.4-16.0); MCH 29.1 pg (25.0-35.0); MCHC 32.9 g/dL (31.0-37.0); MCV 88.4 fL (80.0-100.0); Mean Platelet Volume 8.1; Platelet Count 189 k/uL (150-450); RBC 4.38 m/uL (3.80-5.40); RDW 13.8 % (11.5-15.5); WBC 8.8 k/uL (3.8-10.6)
--- NOTE | 2020-02-18 15:18 | P.BASOAP ---
Subjective Progress Note Date: 02/18/20 Principal diagnosis: Morbid obesity Patient presents today for bariatric follow-up. She was last seen 3 weeks ago. Her constipation has improved. Because of straining she has developed hemorrhoids that are uncomfortable and bleed at times. Weight has decreased by 4.5 pounds. Still has difficulty quantifying both liquid and protein intake for us. She is due for lab work. Her blood sugars remained in the 200 range. She was seen by her procurement officer today and her diabetic medications have been modified. Patient also complaining of right-sided hip pain. Objective - Vital Signs Vital signs: Vital Signs Temp 98.3 F 02/18/20 13:14 Pulse 68 02/18/20 13:14 Resp 16 02/18/20 13:14 BP 135/72 02/18/20 13:14 Pulse Ox Intake & Output 02/17/20 02/18/20 02/18/20 18:59 06:59 18:59 Weight 96.162 kg - Exam Abdomen: Soft, nondistended, nontender - Labs CBC & Chem 7: 02/18/20 13:54 Assessment/Plan (1) Morbid obesity with BMI of 40.0-44.9, adult Narrative/Plan: Patient overall slowly improving. Continue dietary and exercise regimen. Check one month labs at this time. Hemorrhoidal cream for symptomatic hemorrhoids. Monitor blood sugar. Follow-up one month. Plan: Date: 02/18/20 Initial Weight: 981.574 kg Initial BMI: 395.7 Current Weight: 96.162 kg Current BMI: 38.7 Type of Surgery: Total Volume in Band: Previous Volume: Volume Removed: Volume Added: Band Size:
[2020-02-18 22:55] LABS: African American GFR (CKD) 80.5 (60.0-200.0); Albumin 4.3 g/dL (3.80-4.90); Albumin/Globulin Ratio 1.79 (1.60-3.17); BUN/Creat Ratio 16.67 Ratio (12.00-20.00); Calcium 10.1 mg/dL (8.7-10.3); Globulin 2.4 g/dL (1.6-3.3); Non-African American GFR(CKD) 69.5 (60.0-200.0); Potassium 4.3 mmol/L (3.5-5.5); Total Bilirubin 0.6 mg/dL (0.2-1.2); Total Protein 6.7 g/dL (6.2-8.2)
[2020-02-18 23:04] LABS: Folate, Serum 7.7 ng/mL
[2020-02-19 04:05] LABS: Hemoglobin A1C 9.2 % (4.0-6.0)
== END | disposition home or self-care (01) ==
LOC: BARWHC3 12:21
PROVIDERS: ATTEND Surgery
DX: E66.01 Morbid (severe) obesity due to excess calories (principal); Z68.41 Body mass index [BMI] 40.0-44.9, adult; Z71.3 Dietary counseling and surveillance; K90.89 Other intestinal malabsorption; E55.9 Vitamin D deficiency, unspecified
CPT/HCPCS: 84425; 80053; 82607; 82746; 83540; 85027; 82306; 83036; 97803; G0463; 99211

== ENCOUNTER → 2020-03-31 | Outpatient (CLI) | payer MEDICARE, OTHER ==
[2020-03-31 12:50] VITALS: BP 133/83; PULSE 78; TEMP 98; BMI 37.5
--- NOTE | 2020-03-31 16:33 | P.BASOAP ---
Subjective Progress Note Date: 03/31/20 Principal diagnosis: Morbid obesity Patient returns for recheck today. Last seen 02/17. Her constipation has resolved. He describes occasional regurgitation to saliva every few days. No pain. Still taking omeprazole. Symptoms improved with as needed Rolaids. States she has been having some episodes where she feels like she has blacking out. Normal blood sugars and normal blood pressure. Has an appointment with her primary care physician today to discuss that further. Since last visit has lost 7 pounds. Objective - Vital Signs Vital signs: Vital Signs Temp 98 F 03/31/20 12:47 Pulse 78 03/31/20 12:47 Resp BP 133/83 03/31/20 12:47 Pulse Ox Intake & Output 03/30/20 03/31/20 03/31/20 18:59 06:59 18:59 Weight 92.986 kg - Exam Abdomen: Soft, nontender, nondistended Assessment/Plan (1) Morbid obesity with BMI of 40.0-44.9, adult Narrative/Plan: Overall patient gradually improving. Good weight loss at this time. Await primary care evaluation of her near syncopal episodes. Continue antiacid therapy. Monitor symptoms of regurgitation. Follow-up in 1 month. Check 3 months labs at that time. Plan: Date: 03/31/20 Initial Weight: 981.574 kg Initial BMI: 395.7 Current Weight: 92.986 kg Current BMI: 37.5 Type of Surgery: Total Volume in Band: Previous Volume: Volume Removed: Volume Added: Band Size:
== END | disposition home or self-care (01) ==
LOC: BARWHC3 12:35
PROVIDERS: ATTEND Surgery
DX: E66.01 Morbid (severe) obesity due to excess calories (principal); Z68.41 Body mass index [BMI] 40.0-44.9, adult
CPT/HCPCS: 97803; G0463; 99211

== ENCOUNTER → 2020-05-12 | Outpatient (CLI) | payer MEDICARE, OTHER ==
[2020-05-12 11:07] VITALS: BP 141/84; PULSE 77; RESP 18; TEMP 98.3; BMI 36.9
--- NOTE | 2020-05-12 11:07 | P.BASOAP ---
Subjective Progress Note Date: 05/12/20 Principal diagnosis: Morbid obesity Patient returns for evaluation. She was last seen 03/31. Says her physician thought her near syncopal episodes may be related to low blood pressure. Her lisinopril was held. States her regurgitation is mostly gone. Has mild epigastric pain after meals at times. This is nonradiating. This is not increasing in severity. Still takes omeprazole daily. She is due for 3 month labs. Says she reached a plateau but after going on a 1200-calorie per day diet is doing better. She has lost 3 pounds since her last visit. Objective - Exam Abdomen: Soft, nontender, nondistended Assessment/Plan (1) Morbid obesity with BMI of 40.0-44.9, adult Narrative/Plan: Patient doing well at this time. Check three-month labs. Continue omeprazole daily. Follow-up 6 weeks. If epigastric postprandial discomfort continues consider CT or EGD. Plan: Date: Initial Weight: 981.574 kg Initial BMI: Current Weight: Current BMI: Type of Surgery: Total Volume in Band: Previous Volume: Volume Removed: Volume Added: Band Size:
== END ==
LOC: BARWHC3 10:42
PROVIDERS: ATTEND Surgery
DX: E66.01 Morbid (severe) obesity due to excess calories (principal); Z68.41 Body mass index [BMI] 40.0-44.9, adult; Z98.84 Bariatric surgery status; E11.9 Type 2 diabetes mellitus without complications; K21.9 Gastro-esophageal reflux disease without esophagitis; I10 Essential (primary) hypertension; E78.5 Hyperlipidemia, unspecified; M54.9 Dorsalgia, unspecified; G89.29 Other chronic pain
CPT/HCPCS: 99211

== ENCOUNTER → 2020-06-23 | Outpatient (CLI) | payer MEDICARE, OTHER ==
[2020-06-23 13:01] VITALS: BP 155/86; PULSE 76; TEMP 97.7; BMI 34.2
== END ==
LOC: BARWHC3 12:40
PROVIDERS: ATTEND Surgery
DX: Z09 Encounter for follow-up examination after completed treatment for conditions other than malignant neoplasm (principal); Z98.84 Bariatric surgery status; E66.01 Morbid (severe) obesity due to excess calories; R42 Dizziness and giddiness
CPT/HCPCS: 99211

== ENCOUNTER → 2020-06-26 | Outpatient (CLI) | payer MEDICARE, OTHER ==
--- NOTE | 2020-06-26 09:55 | CT ---
EXAMINATION TYPE: CT abdomen pelvis wo con DATE OF EXAM: 06/26/2020 COMPARISON: Scattered mesenteric arter none HISTORY: Abdominal pain CT DLP: 735.4 mGycm Examination of the solid and hollow viscera is limited given the lack of contrast. FINDINGS: LUNG BASES: No evidence for nodule. No evidence for infiltrate. LIVER/GB: Solitary gallstone noted. No space-occupying hepatic lesion. PANCREAS: No pancreatic mass identified. No inflammatory process seen. SPLEEN: No evidence for splenomegaly. No intrasplenic lesions seen. ADRENALS: No adrenal nodules identified. No evidence for thickening. KIDNEYS: No evidence for renal mass. No nephrolithiasis. No hydronephrosis. BOWEL: Limited opacification with GI contrast. Gastric sleeve changes noted. No evidence for leak. If sympto ms persist consider esophagram. Appendix has a normal appearance. No evidence of bowel obstruction. No inflammatory process. Lymph nodes: No evidence for adenopathy greater than 1 cm. Abdominal aorta: Atheromatous changes seen. No evidence for aneurysm. Genital organs: No significant abnormality. Other: No significant abnormality. IMPRESSION: Limited opacification with GI contrast. Gastric sleeve changes noted. No evidence for leak. If sympto ms persist consider esophagram.
== END | disposition home or self-care (01) ==
LOC: RADCTMAIN 08:47
PROVIDERS: ATTEND Surgery
DX: R10.9 Unspecified abdominal pain (principal)
CPT/HCPCS: 74176

== ENCOUNTER → 2020-06-30 | Outpatient (CLI) | payer MEDICARE, OTHER ==
[2020-06-30 14:20] VITALS: BP 142/83; PULSE 79; TEMP 98.1; BMI 34.9
--- NOTE | 2020-06-30 17:36 | P.BASOAP ---
Subjective Progress Note Date: 06/30/20 Principal diagnosis: Morbid obesity Patient has been having some upper abdominal pain. Also having some nausea. Heartburn is slightly worse. Recent sed rate was elevated at 90. A CAT scan of the abdomen took place last week to evaluate for any surgical complications and no abscess or leak is seen. Her syncopal episodes have improved. This seemed to improve after decreasing her lisinopril dose. Denies fevers. No pain in the last day or so. Objective - Vital Signs Vital signs: Vital Signs Temp 98.1 F 06/30/20 14:18 Pulse 79 06/30/20 14:18 Resp BP 142/83 06/30/20 14:18 Pulse Ox Intake & Output 06/29/20 06/30/20 06/30/20 18:59 06:59 18:59 Weight 86.636 kg - Exam Abdomen: Soft, nontender, nondistended Assessment/Plan (1) Morbid obesity with BMI of 40.0-44.9, adult Narrative/Plan: Patient doing slightly better now with decreasing pain and reflux. Continue antiacid therapy. She will consider twice daily antiacids. If symptoms persist would proceed with upper endoscopy. Follow-up 2 months. Plan: Date: 06/30/20 Initial Weight: 981.574 kg Initial BMI: 395.7 Current Weight: 86.636 kg Current BMI: 34.9 Type of Surgery: Total Volume in Band: Previous Volume: Volume Removed: Volume Added: Band Size:
== END ==
LOC: BARWHC3 13:24
PROVIDERS: ATTEND Surgery
DX: E66.01 Morbid (severe) obesity due to excess calories (principal); R10.9 Unspecified abdominal pain; K21.9 Gastro-esophageal reflux disease without esophagitis; Z68.34 Body mass index [BMI] 34.0-34.9, adult; Z91.041 Radiographic dye allergy status; Z88.8 Allergy status to other drugs, medicaments and biological substances; Z91.048 Other nonmedicinal substance allergy status
CPT/HCPCS: 99211

== ENCOUNTER → 2020-07-03 | Outpatient (CLI) | payer MEDICARE, OTHER ==
--- NOTE | 2020-07-04 15:56 | ECHOF ---
Referral Reason:R01.1 Cardiac murmur unspecified MEASUREMENTS -------- HEIGHT: 157.5 cm WEIGHT: 85.3 kg BP: 138/66 IVSd: 1.2 cm (0.6 - 1.1) LVIDd: 3.8 cm (3.9 - 5.3) LVPWd: 1.2 cm (0.6 - 1.1) EDV(Teich): 61 ml IVSs: 1.4 cm LVIDs: 2.9 cm LVPWs: 1.6 cm %IVS Thck: 20 % ESV(Teich): 33 ml EF(Teich): 46 % %FS: 23 % SV(Teich): 28 ml LA Diam: 4.0 cm (2.7 - 3.8) RVIDd: 3.0 cm (< 3.3) LALs A4C: 4.9 cm LAAs A4C: 15.9 cm LAESV A-L A4C: 44 ml LAESV MOD A4C: 40 ml LALs A2C: 5.5 cm LAAs A2C: 15.1 cm LAESV A-L A2C: 35 ml LAESV MOD A2C: 35 ml LAESV(A-L): 42 ml LAESV Index (A-L): 22.51 ml/m Ao Diam: 2.6 cm (2.0 - 3.7) AV Cusp: 1.6 cm (1.5 - 2.6) EPSS: 0.8 cm MV E Hola: 1.20 m/s MV DecT: 313 ms MV Dec [place]: 3.8 m/s MV A [place]: 1.21 m/s MV E/A Ratio: 0.99 MV PHT: 91 ms LVOT Vmax: 0.98 m/s LVOT maxP.84 mmHg AV Vmax: 2.34 m/s AV maxP.82 mmHg AV Vmax: 2.28 m/s AV Vmean: 1.40 m/s AV maxP.85 mmHg AV meanP.54 mmHg AV Env.Ti: 420 ms AV VTI: 58.8 cm AR Vmax: 3.79 m/s AR maxP.42 mmHg AR PHT: 644 ms AR Dec Time: 2222 ms AR Dec [place]: 1.7 m/s TR Vmax: 2.50 m/s TR maxP.03 mmHg RAP: 5.00 mmHg RVSP: 30.03 mmHg MV EF SLOPE: 21.73 mm/s (70 - 150) MV EXCURSION: 11.24 mm (> 18.000) FINDINGS -------- Sinus rhythm. This was a technically good study. The left ventricular size is normal. There is borderline concentric left ventricular hypertrophy. Overall left ventricular systolic function is normal with, an EF between 60 - 65 %. The right ventricle is normal in size. Normal LA size by volume 22+/-6 ml/m2. The right atrium is normal in size. Aneurysmal Interatrial septum. There is mild aortic valve sclerosis. There is mild aortic regurgitation. There is mild aortic st enosis present. Peak/mean gradient across the Aortic Valve is 20.85mmHg / 9.54mmHg. The mitral valve leaflets are mildly thickened. Mild mitral annular calcification present. Mild m itral regurgitation is present. Mild tricuspid regurgitation present. Right ventricular systolic pressure is normal at < 35 mmHg. Trace/mild (physiologic) pulmonic regurgitation. The aortic root size is normal. Normal inferior vena cava with normal inspiratory collapse consistent with estimated right atrial pre ssure of 5 mmHg. There is no pericardial effusion. CONCLUSIONS -------- 1. The left ventricular size is normal. 2. There is borderline concentric left ventricular hypertrophy. 3. Overall left ventricular systolic function is normal with, an EF between 60 - 65 %. 4. Aneurysmal Interatrial septum. 5. There is mild aortic valve sclerosis. 6. There is mild aortic regurgitation. 7. There is mild aortic stenosis present. 8. Peak/mean gradient across the Aortic Valve is 20.85mmHg / 9.54mmHg. 9. The mitral valve leaflets are mildly thickened. 10. Mild mitral annular calcification present. 11. Mild mitral regurgitation is present. 12. Mild tricuspid regurgitation present. 13. Trace/mild (physiologic) pulmonic regurgitation. 14. There is no pericardial effusion. PROGRAM MEDICAL DIRECTOR: Barbie Hawley, [facility]
== END | disposition home or self-care (01) ==
LOC: RADECHMAIN 14:38
PROVIDERS: ATTEND Family Medicine
DX: I08.8 Other rheumatic multiple valve diseases (principal)
CPT/HCPCS: 93306

== ENCOUNTER → 2020-09-01 | Outpatient (CLI) | payer MEDICARE, OTHER ==
[2020-09-01 13:08] VITALS: BP 158/88; PULSE 75; RESP 16; TEMP 98.1; BMI 33.6
--- NOTE | 2020-09-01 13:48 | P.BASOAP ---
Subjective Progress Note Date: 09/01/20 Principal diagnosis: Morbid obesity Patient returns for recheck. She was last seen 06/30. Patient having some pain with swallowing more dense foods. Usually happens after the first 1-2 bites. She is fine with liquids. She does have occasional episodes of vomiting. She continues to take her proton pump inhibitor daily. She has not tried twice a day dosing. Denies heartburn. She has lost 7 pounds since last visit.she did have a CAT scan in June which showed no definite abnormalities. Objective - Vital Signs Vital signs: Vital Signs Temp 98.1 F 09/01/20 13:06 Pulse 75 09/01/20 13:06 Resp 16 09/01/20 13:06 BP 158/88 09/01/20 13:06 Pulse Ox Intake & Output 08/31/20 09/01/20 09/01/20 18:59 06:59 18:59 Weight 83.461 kg - Exam Abdomen: Soft, nondistended, nontender Assessment/Plan (1) Morbid obesity with BMI of 40.0-44.9, adult Narrative/Plan: Patient with recent issues with odynophagia. Will increase PPI to twice daily dosing. We will add Carafate. If symptoms persist we'll plan upper endoscopy. Plan return visit in 6-8 weeks. Plan: Date: 09/01/20 Initial Weight: 981.574 kg Initial BMI: 395.7 Current Weight: 83.461 kg Current BMI: 33.6 Type of Surgery: Total Volume in Band: Previous Volume: Volume Removed: Volume Added: Band Size:
== END ==
LOC: BARWHC3 12:51
PROVIDERS: ATTEND Surgery
DX: E66.01 Morbid (severe) obesity due to excess calories (principal); R13.10 Dysphagia, unspecified; Z68.33 Body mass index [BMI] 33.0-33.9, adult; Z88.8 Allergy status to other drugs, medicaments and biological substances; Z91.041 Radiographic dye allergy status
CPT/HCPCS: 99211

== ENCOUNTER → 2020-10-13 | Outpatient (CLI) | payer MEDICARE, OTHER ==
[2020-10-13 15:21] VITALS: BP 139/73; PULSE 67; RESP 16; TEMP 98; BMI 33.0
--- NOTE | 2020-10-13 16:55 | P.BASOAP ---
Subjective Progress Note Date: 10/13/20 Principal diagnosis: Morbid obesity Patient returns for reevaluation. Last seen in August. Patient says the Carafate she was taking for postprandial discomfort was difficult because of the size of the pill. Says it was getting stuck occasionally. Her symptoms however have improved. Remains on antiacids. She has lost 3 pounds since her last visit. Her postprandial discomfort usually is 5 minutes after her meal and seems to be associated with larger more dense foods. Has episodes of vomiting approximately twice per month. She is due for her 6 month labs. She has been doing well overall. Says she has much more energy than previously. She has been exercising on the stationary bike for 30 minutes per day. Does feel weaker with less muscle tone than preop. Objective - Vital Signs Vital signs: Vital Signs Temp 98 F 10/13/20 15:19 Pulse 67 10/13/20 15:19 Resp 16 10/13/20 15:19 BP 139/73 10/13/20 15:19 Pulse Ox Intake & Output 10/12/20 10/13/20 10/13/20 18:59 06:59 18:59 Weight 82.1 kg - Exam Abdomen: Soft, nontender, nondistended Assessment/Plan (1) Morbid obesity with BMI of 40.0-44.9, adult Narrative/Plan: Patient overall doing fairly well. Continue increasing anaerobic exercise. Continue trying different solid foods to see what leads to dysphagia and discom fort and what does not. We'll check 6 month labs which are overdue at this time. Follow-up 2 months. Plan: Date: 10/13/20 Initial Weight: 981.574 kg Initial BMI: 395.7 Current Weight: 82.1 kg Current BMI: 33.0 Type of Surgery: Total Volume in Band: Previous Volume: Volume Removed: Volume Added: Band Size:
== END ==
LOC: BARWHC3 14:22
PROVIDERS: ATTEND Surgery
DX: E66.01 Morbid (severe) obesity due to excess calories (principal); R13.10 Dysphagia, unspecified; Z68.33 Body mass index [BMI] 33.0-33.9, adult; Z91.041 Radiographic dye allergy status; Z88.8 Allergy status to other drugs, medicaments and biological substances
CPT/HCPCS: 97803; G0463; 99211

== ENCOUNTER → 2020-12-14 | Outpatient (CLI) | payer MEDICARE, OTHER ==
[2020-12-14 09:33] LABS: Basophils % (A) 0 %; Eosinophils # (A) 0.1 k/uL (0-0.7); Eosinophils % (A) 2 %; HCT 40.9 % (34.0-46.0); HGB 13.2 gm/dL (11.4-16.0); Lymphocytes # (A) 1.9 k/uL (1.0-4.8); Lymphocytes % (A) 26 %; MCH 29.6 pg (25.0-35.0); MCHC 32.4 g/dL (31.0-37.0); MCV 91.2 fL (80.0-100.0); Mean Platelet Volume 7.7; Monocytes # (A) 0.4 k/uL (0-1.0); Monocytes % (A) 5 %; Neutrophils # (A) 4.9 k/uL (1.3-7.7); Neutrophils % (A) 66 %; Platelet Count 194 k/uL (150-450); RBC 4.48 m/uL (3.80-5.40); RDW 12.8 % (11.5-15.5); WBC 7.5 k/uL (3.8-10.6)
[2020-12-14 20:46] LABS: African American GFR (CKD) 108.4 (60.0-200.0); Albumin 4.4 g/dL (3.8-4.9); Albumin/Globulin Ratio 1.83 (1.60-3.17); Anion Gap 11.7 mmol/L (4.00-12.00); BUN/Creat Ratio 28.57 Ratio (12.00-20.00); Calcium 9.9 mg/dL (8.7-10.3); Carbon Dioxide 27.3 mmol/L (21.6-31.8); Chol/HDL Ratio 4.53 Ratio; Folate, Serum 14.7 ng/mL (4.40-31.00); Globulin 2.4 g/dL (1.6-3.3); HDL Cholesterol 49.9 mg/dL (40.00-60.00); LDL Cholesterol,Calculated 143.1 mg/dL (0.0-131.0); Non-African American GFR(CKD) 93.5 (60.0-200.0); Potassium 4.1 mmol/L (3.5-5.5); T4, Free (Free Thyroxine) 1.44 ng/dL (0.800-1.800); Total Bilirubin 0.4 mg/dL (0.30-1.20); Total Protein 6.8 g/dL (6.2-8.2)
[2020-12-14 23:24] LABS: Gliadin AB IgA, Deaminated NEGATIVE (NEGATIVE); Gliadin AB IgA, Unit <0.2 U/mL; Gliadin AB IgG, Deaminated NEGATIVE (NEGATIVE)
[2020-12-15 11:51] LABS: Microalbumin Creatinine Ratio <30 mg/g Creat (0-30)
[2020-12-15 14:24] LABS: Egg Yolk IgE Class CLASS 0
[2020-12-15 15:41] LABS: Egg White IgE <0.10 kU/L; Soybean IgE <0.10 kU/L
[2020-12-16 06:35] LABS: Vit B1(Thiamine) 62 ug/L (38-122)
== END | disposition home or self-care (01) ==
LOC: LABWHC1 08:10
PROVIDERS: ATTEND Nurse Practitioner Adult Health
DX: I10 Essential (primary) hypertension (principal); E11.65 Type 2 diabetes mellitus with hyperglycemia; E55.9 Vitamin D deficiency, unspecified; K90.89 Other intestinal malabsorption
CPT/HCPCS: 80053; 80061; 82043; 82306; 82570; 82607; 82746; 83036; 83516; 83540; 84425; 84439; 84443; 85025; 86003

== ENCOUNTER → 2020-12-15 | Outpatient (CLI) | payer MEDICARE, OTHER ==
[2020-12-15 14:43] VITALS: BP 153/79; PULSE 75; RESP 16; TEMP 97.6; BMI 32.9
--- NOTE | 2020-12-15 14:58 | P.BASOAP ---
Subjective Progress Note Date: 12/15/20 Principal diagnosis: Morbid obesity Patient returns for evaluation. Still having episodes of intermittent vomiting. Says she thinks she had an episode of vomiting daily last week. Still with heartburn. Says she is otherwise doing well. She is having epigastric pain. Similar to what she experienced in June. It is not present in the right or left side but in the very center of her abdomen. She has lost 1 pound since her last visit. Last visit 10/13. Had labs drawn yesterday which looked good. Patient unfortunately just lost her brother to possibly Covid. Remains on antiacids daily. Objective - Vital Signs Vital signs: Vital Signs Temp 97.6 F 12/15/20 14:40 Pulse 75 12/15/20 14:40 Resp 16 12/15/20 14:40 BP 153/79 12/15/20 14:40 Pulse Ox Intake & Output 12/14/20 12/15/20 12/15/20 18:59 06:59 18:59 Weight 81.647 kg - Exam Abdomen: Soft, minimal epigastric tenderness, nondistended - Labs CBC & Chem 7: 12/14/20 08:58 12/14/20 08:58 Labs: Abnormal Lab Results - Last 24 Hours (Table) 12/14/20 12/14/20 Range/Units 08:58 08:58 BUN/Creatinine Ratio 28.57 H (12.00-20.00) Ratio Glucose 151 H (70-110) mg/dL Hemoglobin A1c 8.1 H (4.0-6.0) % Triglycerides 165.00 H (0.00-149.00) mg/dL Cholesterol 226.00 H (0.00-200.00) mg/dL LDL Cholesterol, Calc 143.1 H (0.0-131.0) mg/dL Assessment/Plan (1) Epigastric pain Narrative/Plan: Patient having increased pain epigastric region. We'll proceed with upper endoscopy at this time. Patient will return to clinic following the endoscopy. Continue antiacids for now. (2) Morbid obesity with BMI of 40.0-44.9, adult Plan: Date: 12/15/20 Initial Weight: 981.574 kg Initial BMI: 395.7 Current Weight: 81.647 kg Current BMI: 32.9 Type of Surgery: Total Volume in Band: Previous Volume: Volume Removed: Volume Added: Band Size:
== END ==
LOC: BARWHC3 14:04
PROVIDERS: ATTEND Surgery
DX: E66.01 Morbid (severe) obesity due to excess calories (principal); R10.13 Epigastric pain; Z68.32 Body mass index [BMI] 32.0-32.9, adult; Z88.8 Allergy status to other drugs, medicaments and biological substances; Z91.041 Radiographic dye allergy status; Z91.048 Other nonmedicinal substance allergy status
CPT/HCPCS: 84439; 86003 ×2; 84425; 80061; 80053; 82607; 82746; 83540; 84443; 85025; 82306; 83516 ×4; 82043; 82570; 83036; G0463; 99211

== ENCOUNTER 2020-12-29 07:42 | Day surgery (SDC) | payer MEDICARE, OTHER ==
[2020-12-25 10:03] VITALS: BMI 32.5
[~2020-12-29 07:42] MED LIST changes: -DEXAMETHASONE SOD PHOSPHATE 4 MG/ML 1 ML VIAL IV ONE; -HYDROmorphone 0.5 MG/0.5 ML SYRINGE IVP PRN; +LACTATED RINGERS 1,000 ML IV SCH; -MIDAZOLAM 2 MG/2 ML VIAL IV PRN; -ONDANSETRON 4 MG/2 ML VIAL IVP ONE
[2020-12-29 08:21] VITALS: TEMP 96.9
--- NOTE | 2020-12-29 08:30 | P.GSHP ---
History of Present Illness H&P Date: 12/29/20 Chief Complaint: GERD, vomiting Patient here today for upper endoscopy. Patient has had abdominal pain and episodes of vomiting. Significant reflux as well. Patient underwent sleeve gastrectomy last year. Since her surgery she has had an upper GI postoperatively and a CAT scan as well which showed no definite abnormalities. Past Medical History Past Medical History: Diabetes Mellitus, GERD/Reflux, Hyperlipidemia, Osteoarthritis (OA) Additional Past Medical History / Comment(s): CHRONIC BACK PAIN, HX OF BOILS- groin, right hand pain, recent severe constipation, abdominal pain, tinnitus left ear History of Any Multi-Drug Resistant Organisms: None Reported Past Surgical History: Bariatric Surgery, Section, Orthopedic Surgery, Tubal Ligation Additional Past Surgical History / Comment(s): SHAMAR EYE VITRECTOMY, CERVICAL NECK FUSION, RT ROTATOR CUFF, RT CARPAL TUNNEL RELEASE.EGD X2, COLONOSCOPY, right thumb reattached after injury, sleeve gastrectomy 01-13-20. ingrown toenail removed 2020. I&D cyst on abdomen, rt cataract surgery, laser eye surgery Past Anesthesia/Blood Transfusion Reactions: No Reported Reaction Smoking Status: Never smoker - Past Family History Mother Family Medical History: No Reported History Sister(s) Family Medical History: Cancer Medications and Allergies Home Medications Medication Instructions Recorded Confirmed Type Atorvastatin [Lipitor] 80 mg PO HS 08/16/19 12/29/20 History Omeprazole [PriLOSEC] 40 mg PO DAILY #30 capsule. 01/15/20 12/29/20 Rx Dapagliflozin Propanediol [Farxiga] 10 mg PO DAILY 02/18/20 12/29/20 History Ergocalciferol (Vitamin D2) 50 mcg PO DAILY 04/01/20 12/29/20 History [Vitamin D2 (2000 Iu)] metFORMIN HCL [Glucophage] 1,000 mg PO BID 06/23/20 12/29/20 History lisinopriL [Zestril] 2.5 mg PO DAILY 08/31/20 12/29/20 History Bariatric Fusion 1 tab PO DAILY 12/25/20 12/29/20 History Calcium Carbonate [Tums] 500 mg PO DIRECTED PRN 12/25/20 12/29/20 History Allergies Allergy/AdvReac Type Severity Reaction Status Date / Time losartan potassium Allergy Severe Dyspnea, Verified 12/25/20 09:48 [From Cozaar] Heart palpitations Iodinated Contrast Media Allergy Unknown ELEVATED Verified 12/25/20 09:48 [Iodinated Contrast Media - BP AND IV Dye] PULSE IV CONTRAST DYE Allergy Unknown Elevated Uncoded 12/25/20 09:48 Blood pressure & pulse.palpitations MARQUES SHAMPOO Allergy Swelling Uncoded 12/25/20 09:48 OF FACE Surgical - Exam Vital Signs Temp Pulse Resp BP Pulse Ox 96.9 F L 75 16 174/76 99 12/29/20 08:17 12/29/20 08:17 12/29/20 08:17 12/29/20 08:17 12/29/20 08:17 Physical exam: General: Well-developed, well-nourished HEENT: Normocephalic, sclerae nonicteric Abdomen: Nontender, nondistended Extremities: No edema Neuro: Alert and oriented Assessment and Plan (1) GERD (gastroesophageal reflux disease) Narrative/Plan: Will proceed with upper endoscopy at this time Current Visit: No Status: Acute Code(s): K21.9 - GASTRO-ESOPHAGEAL REFLUX DISEASE WITHOUT ESOPHAGITIS SNOMED Code(s): 914701922
[2020-12-29] MEDS ORDERED: PROPOFOL 10 MG/ML 20 ML VIAL IV ONE (08:35)
[2020-12-29] MEDS ORDERED: LIDOCAINE 1% INJ 10MG/ML (20 ML MDV) ONE (08:35)
[2020-12-29] MEDS ORDERED: GLYCOPYRROLATE 0.2 MG/ML 2 ML VIAL ONE (08:35)
[2020-12-29 08:42] LABS: Glucose,Whole Blood 128 mg/dL (75-99)
--- NOTE | 2020-12-29 08:51 | P.PCN ---
Date of Procedure: 12/29/20 Procedure(s) Performed: Preoperative Dx: GERD, vomiting Postoperative Dx: Mild gastritis, mild distal esophagitis Procedure: EGD with Bx Anesthesia: Sedation Endoscopist: Dr. Kulkarni Specimens: Antrum, distal esophagus Endoscopic Procedure: The patient was on the endoscopy table in the left decubitus position. The Olympus gastroscope was inserted into the oropharynx and passed under direct visualization to the region of the third portion of the duodenum. From that point the scope was slowly withdrawn inspecting all surfaces carefully. There were no neoplastic inflammatory or polypoid lesions throughout the duodenum. The pylorus was widely patent. The stomach was carefully inspected. There was mild gastritis present. A biopsy of the antrum took place to rule out H. pylori. Patient had evidence of previous sleeve gastrectomy. Retroflexion could not be performed. There was no evidence of stricture or tortuosity of the sleeve. There may have been a small hiatal hernia present. Difficult to visualize the diaphragmatic hiatus. Above the GE junction there was a single linear erosion the measured 2 cm in length. A biopsy was taken. The remainder the esophagus appeared normal. The patient was then taken to the recovery room in stable condition per anesthesia guidelines. Recommendations: Resume diet. Await biopsy results. Continue antiacid therapy.
[2020-12-29 09:02] VITALS: RESP 18
[2020-12-29 09:10] VITALS: BP 145/86; PULSE 71
== END 2020-12-29 09:40 | disposition home or self-care (01) ==
LOC: ORWHC2ENDO 07:42
PROVIDERS: ATTEND Surgery
DX: K29.50 Unspecified chronic gastritis without bleeding (principal); K21.00 Gastro-esophageal reflux disease with esophagitis, without bleeding; K44.9 Diaphragmatic hernia without obstruction or gangrene; I10 Essential (primary) hypertension; E11.9 Type 2 diabetes mellitus without complications; E78.5 Hyperlipidemia, unspecified; J45.909 Unspecified asthma, uncomplicated; M19.90 Unspecified osteoarthritis, unspecified site; G89.29 Other chronic pain; M54.9 Dorsalgia, unspecified; K59.00 Constipation, unspecified; H93.12 Tinnitus, left ear; M79.641 Pain in right hand; Z98.84 Bariatric surgery status; Z79.899 Other long term (current) drug therapy; Z79.84 Long term (current) use of oral hypoglycemic drugs; Z88.8 Allergy status to other drugs, medicaments and biological substances; Z91.041 Radiographic dye allergy status; Z91.048 Other nonmedicinal substance allergy status; Z98.891 History of uterine scar from previous surgery; Z98.51 Tubal ligation status; Z98.890 Other specified postprocedural states; Z98.1 Arthrodesis status; Z80.9 Family history of malignant neoplasm, unspecified
CPT/HCPCS: 88305; 43239; J2001; J2704

== ENCOUNTER → 2021-02-09 | Outpatient (CLI) | payer MEDICARE, OTHER ==
[2021-02-09 12:13] VITALS: BP 163/87; PULSE 91; TEMP 98.1; BMI 32.9
--- NOTE | 2021-02-09 13:24 | P.BASOAP ---
Subjective Progress Note Date: 02/09/21 Principal diagnosis: GERD Patient returns for reevaluation. She was last seen in December when she had her upper endoscopy per warmed. Upper endoscopy and CAT scan show a small to moderate sized hiatal hernia. Patient says her pain is definitely improved. Reflux seems to be improved as well. Still having intermittent episodes of vomiting. She blames this on eating too fast and occasionally eating too much. Patient's weight is unchanged at 180. Objective - Vital Signs Vital signs: Vital Signs Temp 98.1 F 02/09/21 12:11 Pulse 91 02/09/21 12:11 Resp BP 163/87 02/09/21 12:11 Pulse Ox Intake & Output 02/08/21 02/09/21 02/09/21 18:59 06:59 18:59 Weight 81.647 kg - Exam Abdomen: Soft, nontender, nondistended Assessment/Plan (1) GERD (gastroesophageal reflux disease) Narrative/Plan: Patient seems to be doing somewhat better at this time. Discussed the recent endoscopy and CAT scan findings in detail. Offered surgical repair of hiatal hernia with or without conversion to gastric bypass. Patient is not interested in surgery and is confident she will not need that since her symptoms have been improving. She would like to intermittently go on a liquid or soft food diet which is not unreasonable. Recommend repeating upper endoscopy in 1-2 years at this point. She did have her recent annual labs performed which looked okay with the exception of elevation and hemoglobin A1c. She will discuss this further with her primary physician. Follow-up 6 months. Plan: Date: 02/09/21 Initial Weight: 981.574 kg Initial BMI: 395.7 Current Weight: 81.647 kg Current BMI: 32.9 Type of Surgery: Total Volume in Band: Previous Volume: Volume Removed: Volume Added: Band Size:
== END ==
LOC: BARWHC3 11:54
PROVIDERS: ATTEND Surgery
DX: E66.01 Morbid (severe) obesity due to excess calories (principal); K21.9 Gastro-esophageal reflux disease without esophagitis; Z91.041 Radiographic dye allergy status; Z88.8 Allergy status to other drugs, medicaments and biological substances; Z91.09 Other allergy status, other than to drugs and biological substances
CPT/HCPCS: 99211

== ENCOUNTER 2021-03-17 16:03 | Emergency (ER) | payer MEDICARE, OTHER ==
--- NOTE | 2021-03-17 18:30 | XR ---
EXAMINATION TYPE: XR chest 2V DATE OF EXAM: 03/17/2021 6:00 PM COMPARISON:None TECHNIQUE: Frontal and lateral views of the chest. CLINICAL INDICATION:Female, 60 years old with history of Chest Pain; FINDINGS: Lungs/Pleura: There is no evidence of pleural effusion, focal consolidation, or pneumothorax. Pulmonary vascularity: Unremarkable. Heart/mediastinum: Cardiomediastinal silhouette is unremarkable. Musculoskeletal: No acute osseous pathology. IMPRESSION: No acute cardiopulmonary disease/process.
[2021-03-17 19:11] LABS: Basophils % (A) 0 %; Eosinophils # (A) 0.1 k/uL (0-0.7); Eosinophils % (A) 1 %; HCT 43.7 % (34.0-46.0); HGB 14.6 gm/dL (11.4-16.0); Lymphocytes # (A) 0.8 k/uL (1.0-4.8); Lymphocytes % (A) 6 %; MCH 30.8 pg (25.0-35.0); MCHC 33.4 g/dL (31.0-37.0); MCV 92.1 fL (80.0-100.0); Mean Platelet Volume 7.9; Monocytes # (A) 0.4 k/uL (0-1.0); Monocytes % (A) 3 %; Neutrophils # (A) 12.5 k/uL (1.3-7.7); Neutrophils % (A) 91 %; Platelet Count 168 k/uL (150-450); RBC 4.74 m/uL (3.80-5.40); RDW 12.9 % (11.5-15.5); WBC 13.7 k/uL (3.8-10.6)
[2021-03-17 19:21] LABS: ALT 20 U/L (4-34); AST 28 U/L (14-36); African American GFR (CKD) >90 (>60 ml/min/1.73 sqM); Albumin 4.9 g/dL (3.5-5.0); Alkaline Phosphatase 103 U/L (38-126); Anion Gap 17 mmol/L; Blood Urea Nitrogen 27 mg/dL (7-17); Calcium 10.3 mg/dL (8.4-10.2); Carbon Dioxide 23 mmol/L (22-30); Chloride 99 mmol/L (98-107); Glucose 174 mg/dL (74-99); Magnesium 1.6 mg/dL (1.6-2.3); Non-African American GFR(CKD) >90 (>60 ml/min/1.73 sqM); Potassium 4.1 mmol/L (3.5-5.1); Sodium 139 mmol/L (137-145); Total Protein 8.4 g/dL (6.3-8.2)
[2021-03-17 19:22] LABS: INR 0.9 (<1.2); Partial Thromboplastin Time 22.9 sec (22.0-30.0); Prothrombin Time 9.7 sec (9.0-12.0)
[2021-03-17] MEDS ORDERED: MORPHINE SULFATE 2 MG/ML SYRINGE IVP STA (19:48)
[2021-03-17] MEDS ORDERED: MAG HYDROX/AL HYDROX/SIMETH 30 ML, HYOSCYAMINE ELIXIR 10 ML, LIDOCAINE VISCOUS 2% 10 ML PO STA ×3 (19:48)
[2021-03-17] MEDS ORDERED: PANTOPRAZOLE 40 MG/10 ML VIAL IVP STA (19:48)
[2021-03-17 20:28] VITALS: TEMP 98.2
--- NOTE | 2021-03-17 20:32 | ED ---
General Adult HPI - General Source: patient, RN notes reviewed, old records reviewed Mode of arrival: ambulatory Limitations: no limitations <Humberto Melgar - Last Filed: 03/17/21 20:30> <Harvinder Schwab - Last Filed: 03/17/21 23:36> - General Chief complaint: Chest Pain Stated complaint: Chest pain Time Seen by Provider: 03/17/21 19:41 - History of Present Illness Initial comments: 60-year-old female presents for evaluation of upper abdominal pain and chest pain. Patient states she had 3 episodes of vomiting today. Pain is substernal. Sharp in nature. She has no previous history of CAD. She does have history of previous bariatric surgery and states that she has frequent vomiting episodes although this morning was abnormal. She denies fever. Denies cough. Denies dyspnea. (Humberto Melgar) - Related Data Home Medications Medication Instructions Recorded Confirmed Atorvastatin [Lipitor] 80 mg PO HS 08/16/19 03/17/21 metFORMIN HCL [Glucophage] 1,000 mg PO BID 06/23/20 03/17/21 Bariatric Fusion 1 tab PO DAILY 12/25/20 03/17/21 Biotin 5 mg PO DAILY 03/17/21 03/17/21 Cholecalciferol [Vitamin D3 (25 50 mcg PO DAILY 03/17/21 03/17/21 Mcg = 1000 Iu)] Dapagliflozin Propanediol [Farxiga] 10 mg PO DAILY 03/17/21 03/17/21 Lisinopril-Hctz 10-12.5 mg 1 tab PO DAILY 03/17/21 03/17/21 [Zestoretic 10-12.5] Previous Rx's Medication Instructions Recorded Omeprazole [PriLOSEC] 40 mg PO DAILY #30 capsule. 01/15/20 Allergies Allergy/AdvReac Type Severity Reaction Status Date / Time losartan potassium Allergy Severe Dyspnea, Verified 03/17/21 17:41 [From Cozaar] Heart palpitations Iodinated Contrast Media Allergy Unknown ELEVATED Verified 03/17/21 17:41 [Iodinated Contrast Media - BP AND IV Dye] PULSE IV CONTRAST DYE Allergy Unknown Elevated Uncoded 03/17/21 17:41 Blood pressure & pulse.palpitations ZAHEER SHAMPOO Allergy Swelling Uncoded 03/17/21 17:41 OF FACE Review of Systems ROS Other: All systems not noted in ROS Statement are negative. <Humberto Melgar - Last Filed: 03/17/21 20:30> ROS Other: All systems not noted in ROS Statement are negative. <ZaheerHarvinder - Last Filed: 03/17/21 23:36> ROS Statement: Those systems with pertinent positive or pertinent negative responses have been documented in the HPI. Past Medical History Past Medical History: Diabetes Mellitus, GERD/Reflux, Hyperlipidemia, Ost eoarthritis (OA) Additional Past Medical History / Comment(s): CHRONIC BACK PAIN, HX OF BOILS- groin, right hand pain, recent severe constipation, abdominal pain, tinnitus left ear History of Any Multi-Drug Resistant Organisms: None Reported Past Surgical History: Bariatric Surgery, Section, Orthopedic Surgery, Tubal Ligation Additional Past Surgical History / Comment(s): SHAMAR EYE VITRECTOMY, CERVICAL NECK FUSION, RT ROTATOR CUFF, RT CARPAL TUNNEL RELEASE.EGD X2, COLONOSCOPY, right thumb reattached after injury, sleeve gastrectomy 01-13-20. ingrown toenail removed 2020. I&D cyst on abdomen, rt cataract surgery, laser eye surgery. Bariatric pt. Past Anesthesia/Blood Transfusion Reactions: No Reported Reaction Past Psychological History: No Psychological Hx Reported Smoking Status: Never smoker Past Alcohol Use History: None Reported Past Drug Use History: None Reported - Past Family History Sister(s) Family Medical History: Cancer <Humberto Melgar - Last Filed: 03/17/21 20:30> General Exam Limitations: no limitations General appearance: alert, in no apparent distress Head exam: Present: atraumatic, normocephalic Eye exam: Present: normal appearance, PERRL ENT exam: Present: normal exam Neck exam: Present: normal inspection. Absent: tenderness, meningismus Respiratory exam: Present: normal lung sounds bilaterally. Absent: respiratory distress, wheezes Cardiovascular Exam: Present: regular rate, normal rhythm GI/Abdominal exam: Present: soft, tenderness (Mild epigastric tenderness). Absent: distended, guarding, rebound Extremities exam: Present: normal inspection, normal capillary refill. Absent: pedal edema, calf tenderness Neurological exam: Present: alert, oriented X3, CN II-XII intact. Absent: motor sensory deficit Psychiatric exam: Present: normal affect, normal mood Skin exam: Present: warm, dry, intact. Absent: cyanosis, diaphoretic <Humberto Melgar Miriam - Last Filed: 03/17/21 20:30> Course Vital Signs 03/17/21 03/17/21 03/17/21 17:38 20:00 20:08 Temperature 97.6 F 98.2 F Pulse Rate 71 98 Respiratory 16 18 18 Rate Blood Pressure 130/68 146/69 O2 Sat by Pulse 99 97 Oximetry 03/17/21 23:00 Temperature Pulse Rate 103 H Respiratory 24 Rate Blood Pressure 135/75 O2 Sat by Pulse 97 Oximetry EKG Findings - EKG Comments: EKG Findings:: EKG: Sinus rhythm no ST segment elevation rate of 73, ID interval 135, QRS duration 99, QTC 424 <VenturaesperanzaHumberto Miriam - Last Filed: 03/17/21 20:30> Medical Decision Making - Lab Data Result diagrams: 03/17/21 18:50 03/17/21 18:50 <Humberto Melgar - Last Filed: 03/17/21 20:30> - Lab Data Result diagrams: 03/17/21 18:50 03/17/21 18:50 <Harvinder Schwab - Last Filed: 03/17/21 23:36> - Medical Decision Making Patient was signed out to me pending results of imaging. Laboratory studies were relatively unremarkable except for an elevated d-dimer 0.88. Patient has mild leukocytosis of 13 which is likely reactive. To troponins are negative. Lipase is normal. EKG was evaluated by the prior physician revealed no acute changes. Chest x-ray was obtained and showed no acute cardio pulmonary process. CT angiogram was what was pending, this was to rule out dissection versus other aortic issue due to her pain radiation to her back, and it was negative for any signs of aortic issue. No evidence of PE. Is a dilated gallbladder, however laboratory studies are remarkable for signs of obstruction at this time. I discussed results of the patient. Would like to go home at this time. I advised she can take Tylenol for the pain and she was in agreement this plan. Advise close follow-up with her PCP, bath steward, as well as office clerk but she was in agreement. Patient was therefore discharged home in good condition. Pain is improved at this time. (Harvinder Schwab) - Lab Data Lab Results 03/17/21 03/17/21 03/17/21 Range/Units 18:50 18:50 18:50 WBC 13.7 H (3.8-10.6) k/uL RBC 4.74 (3.80-5.40) m/uL Hgb 14.6 (11.4-16.0) gm/dL Hct 43.7 (34.0-46.0) % MCV 92.1 (80.0-100.0) fL MCH 30.8 (25.0-35.0) pg MCHC 33.4 (31.0-37.0) g/dL RDW 12.9 (11.5-15.5) % Plt Count 168 (150-450) k/uL MPV 7.9 Neutrophils % 91 % Lymphocytes % 6 % Monocytes % 3 % Eosinophils % 1 % Basophils % 0 % Neutrophils # 12.5 H (1.3-7.7) k/uL Lymphocytes # 0.8 L (1.0-4.8) k/uL Monocytes # 0.4 (0-1.0) k/uL Eosinophils # 0.1 (0-0.7) k/uL Basophils # 0.0 (0-0.2) k/uL PT 9.7 (9.0-12.0) sec INR 0.9 (<1.2) APTT 22.9 (22.0-30.0) sec D-Dimer (<0.60) mg/L FEU Sodium 139 (137-145) mmol/L Potassium 4.1 (3.5-5.1) mmol/L Chloride 99 (98-107) mmol/L Carbon Dioxide 23 (22-30) mmol/L Anion Gap 17 mmol/L BUN 27 H (7-17) mg/dL Creatinine 0.66 (0.52-1.04) mg/dL Est GFR (CKD-EPI)AfAm >90 (>60 ml/min/1.73 sqM) Est GFR (CKD-EPI)NonAf >90 (>60 ml/min/1.73 sqM) Glucose 174 H (74-99) mg/dL Calcium 10.3 H (8.4-10.2) mg/dL Magnesium 1.6 (1.6-2.3) mg/dL Total Bilirubin 1.0 (0.2-1.3) mg/dL AST 28 (14-36) U/L ALT 20 (4-34) U/L Alkaline Phosphatase 103 (38-126) U/L Troponin I (0.000-0.034) ng/mL Total Protein 8.4 H (6.3-8.2) g/dL Albumin 4.9 (3.5-5.0) g/dL Lipase (23-300) U/L 03/17/21 03/17/21 03/17/21 Range/Units 18:50 20:02 20:02 WBC (3.8-10.6) k/uL RBC (3.80-5.40) m/uL Hgb (11.4-16.0) gm/dL Hct (34.0-46.0) % MCV (80.0-100.0) fL MCH (25.0-35.0) pg MCHC (31.0-37.0) g/dL RDW (11.5-15.5) % Plt Count (150-450) k/uL MPV Neutrophils % % Lymphocytes % % Monocytes % % Eosinophils % % Basophils % % Neutrophils # (1.3-7.7) k/uL Lymphocytes # (1.0-4.8) k/uL Monocytes # (0-1.0) k/uL Eosinophils # (0-0.7) k/uL Basophils # (0-0.2) k/uL PT (9.0-12.0) sec INR (<1.2) APTT (22.0-30.0) sec D-Dimer 0.88 H (<0.60) mg/L FEU Sodium (137-145) mmol/L Potassium (3.5-5.1) mmol/L Chloride (98-107) mmol/L Carbon Dioxide (22-30) mmol/L Anion Gap mmol/L BUN (7-17) mg/dL Creatinine (0.52-1.04) mg/dL Est GFR (CKD-EPI)AfAm (>60 ml/min/1.73 sqM) Est GFR (CKD-EPI)NonAf (>60 ml/min/1.73 sqM) Glucose (74-99) mg/dL Calcium (8.4-10.2) mg/dL Magnesium (1.6-2.3) mg/dL Total Bilirubin (0.2-1.3) mg/dL AST (14-36) U/L ALT (4-34) U/L Alkaline Phosphatase (38-126) U/L Troponin I <0.012 <0.012 (0.000-0.034) ng/mL Total Protein (6.3-8.2) g/dL Albumin (3.5-5.0) g/dL Lipase (23-300) U/L 03/17/21 Range/Units 20:02 WBC (3.8-10.6) k/uL RBC (3.80-5.40) m/uL Hgb (11.4-16.0) gm/dL Hct (34.0-46.0) % MCV (80.0-100.0) fL MCH (25.0-35.0) pg MCHC (31.0-37.0) g/dL RDW (11.5-15.5) % Plt Count (150-450) k/uL MPV Neutrophils % % Lymphocytes % % Monocytes % % Eosinophils % % Basophils % % Neutrophils # (1.3-7.7) k/uL Lymphocytes # (1.0-4.8) k/uL Monocytes # (0-1.0) k/uL Eosinophils # (0-0.7) k/uL Basophils # (0-0.2) k/uL PT (9.0-12.0) sec INR (<1.2) APTT (22.0-30.0) sec D-Dimer (<0.60) mg/L FEU Sodium (137-145) mmol/L Potassium (3.5-5.1) mmol/L Chloride (98-107) mmol/L Carbon Dioxide (22-30) mmol/L Anion Gap mmol/L BUN (7-17) mg/dL Creatinine (0.52-1.04) mg/dL Est GFR (CKD-EPI)AfAm (>60 ml/min/1.73 sqM) Est GFR (CKD-EPI)NonAf (>60 ml/min/1.73 sqM) Glucose (74-99) mg/dL Calcium (8.4-10.2) mg/dL Magnesium (1.6-2.3) mg/dL Total Bilirubin (0.2-1.3) mg/dL AST (14-36) U/L ALT (4-34) U/L Alkaline Phosphatase (38-126) U/L Troponin I (0.000-0.034) ng/mL Total Protein (6.3-8.2) g/dL Albumin (3.5-5.0) g/dL Lipase 80 (23-300) U/L Disposition <Humberto Melgar - Last Filed: 03/17/21 20:30> Is patient prescribed a controlled substance at d/c from ED?: No <Harvinder Schwab - Last Filed: 03/17/21 23:36> Clinical Impression: Chest pain of unknown etiology Disposition: HOME SELF-CARE Condition: Good Instructions (If sedation given, give patient instructions): Chest Pain (ED) Referrals: Karlos Cortez MD [Primary Care Provider] - 1-2 days
[2021-03-17] MEDS ORDERED: diphenhydrAMINE 50 MG/ML 1 ML VIAL IVP STA (21:09)
[2021-03-17] MEDS ORDERED: methylPREDNISolone SOD SUCCI 125 MG/2 ML VIAL IV STA (21:09)
[2021-03-17] MEDS ORDERED: FAMOTIDINE 20 MG/2 ML VIAL IV STA (21:09)
[2021-03-17 23:11] VITALS: BP 135/75; PULSE 103; RESP 24
--- NOTE | 2021-03-17 23:19 | CT ---
EXAMINATION TYPE: CT angio thor/abd pel aorta DATE OF EXAM: 03/17/2021 COMPARISON: HISTORY: CP/Epigastric pain. CT DLP: 1600.5 mGycm Automated exposure control for dose reduction was used. CONTRAST: Performed with IV Contrast, patient injected with 100 mL of Isovue 370. There are Three-D postprocessed images. Images obtained from the thoracic inlet to the floor of the p mery without and with IV contrast. FINDINGS: Lung bases appear clear. There is no pleural effusion. Heart size is fairly normal. There is no peric ardial effusion. There is no evidence of a pulmonary mass. Lungs are clear of infiltrate. There is no mediastinal adenopathy. There are no hilar masses. There is normal contrast opacification of the thoracic aorta. There is no aneurysm or dissection. The re is no evidence of filling defect in the pulmonary arteries. Liver spleen stomach and pancreas appear intact. Gallbladder is dilated and measures 5 cm. The intrah epatic bile ducts are not dilated. Common bile duct measures 1 cm. There are changes of gastric baria tric surgery. There is no adrenal mass. Kidneys show satisfactory contrast opacification. There is no hydronephrosi s. There is no retroperitoneal adenopathy. Bladder distends smoothly. There is no inguinal hernia. Th ere is no free fluid in the pelvis. Uterus is anteverted. Appendix is posterior and appears normal. There is no mesenteric edema. There is no ascites or free air. There is no bowel obstruction. Abdominal aorta is intact. There is no evidence of aneurysm or dissection. There is normal contrast o pacification of the celiac artery and superior mesenteric artery. There is 50% stenosis at the origin of the celiac artery. There is 25% stenosis origin of the superior mesenteric artery. The renal radha luca appear widely patent. There is arterial flow in the iliac and femoral arteries. No evidence of a rterial dissection or aneurysm. There is no evidence of contrast extravasation. The thoracic and lumbar vertebra show normal alignment. There is no compression fracture. There is mi ld spondylotic changes. Sternum is intact. IMPRESSION: No evidence of arterial aneurysm or dissection. 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 No evidence of pulmonary embolism. Normal appendix. Dilated gallbladder suggestive of cholecystitis or gallbladder dysfunction. Abnormal gallbladder is a change compared to 06/26/2020 CT scan.
== END 2021-03-17 23:43 | disposition home or self-care (01) ==
LOC: EC 16:03
DX: R07.89 Other chest pain (principal); R10.13 Epigastric pain; E11.9 Type 2 diabetes mellitus without complications; E78.5 Hyperlipidemia, unspecified; K21.9 Gastro-esophageal reflux disease without esophagitis; M19.90 Unspecified osteoarthritis, unspecified site; Z79.84 Long term (current) use of oral hypoglycemic drugs; Z79.899 Other long term (current) drug therapy
CPT/HCPCS: 36415; 93005; 85379; 80053; 83690; 83735; 84484; 85025; 85610; 85730; 71046; 71275; 74174; 99285; 96374; 96375 ×4; J1200; J2930; J2270; C9113; Q9967

== ENCOUNTER → 2021-07-13 | Outpatient (CLI) | payer MEDICARE, OTHER ==
[2021-07-13 11:51] VITALS: BP 164/72; PULSE 77; RESP 16; TEMP 97.1; BMI 31.1
--- NOTE | 2021-07-13 11:58 | P.BASOAP ---
Subjective Progress Note Date: 07/13/21 Principal diagnosis: Morbid obesity Patient returns for reevaluation. She was last seen in February. Patient went to the ER in March with epigastric and chest pain with pressure that radiated to the back. She was concerned she was having a heart attack. She had a CT of the chest performed which demonstrated gallbladder wall dilation and mild inflammation. No further workup took place at that time. No ultrasound. She has not had any further symptoms. She is not interested in evaluating this further at this time. Still complains of chronic reflux. Takes omeprazole once daily. Has episodes of vomiting approximately once per week. She has lost 10 more pounds since her last visit. Patient is requesting antibiotics for a recurrent perirectal boil. Says it is not bothering her currently. Objective - Vital Signs Vital signs: Vital Signs Temp 97.1 F L 07/13/21 11:46 Pulse 77 07/13/21 11:46 Resp 16 07/13/21 11:46 BP 164/72 07/13/21 11:46 Pulse Ox FiO2 Intake & Output 07/12/21 07/13/21 07/13/21 18:59 06:59 18:59 Weight 77.111 kg - Exam Abdomen: Soft, nontender, nondistended Assessment/Plan (1) Morbid obesity with BMI of 40.0-44.9, adult Narrative/Plan: 60-year-old female doing well after prior sleeve gastrectomy. Still dealing with chronic reflux issues. Continue omeprazole daily. We'll provide refill for antibiotics for suspected recurrent perirectal abscess. She states she will see me in contact me again if this bothers her further. We discussed options of further gallbladder workup including ultrasound that she would like to hold off on that for now. Plan follow-up 6 months. Check annual labs at that time. Plan: Date: 07/13/21 Initial Weight: 110.677 kg Initial BMI: 44.6 Current Weight: 77.111 kg Current BMI: 31.1 Type of Surgery: Vertical Sleeve Gastrectomy Total Volume in Band: Previous Volume: Volume Removed: Volume Added: Band Size:
== END ==
LOC: BARWHC3 11:39
PROVIDERS: ATTEND Surgery
DX: E66.01 Morbid (severe) obesity due to excess calories (principal); K21.9 Gastro-esophageal reflux disease without esophagitis; Z68.31 Body mass index [BMI] 31.0-31.9, adult; Z98.84 Bariatric surgery status; Z79.899 Other long term (current) drug therapy; Z88.8 Allergy status to other drugs, medicaments and biological substances; Z91.041 Radiographic dye allergy status
CPT/HCPCS: 99211

== ENCOUNTER → 2022-01-11 | Outpatient (CLI) | payer MEDICARE, OTHER ==
[2022-01-11 13:24] VITALS: BP 152/91; PULSE 72; TEMP 98; BMI 31.6
--- NOTE | 2022-01-11 15:38 | P.BASOAP ---
Subjective Progress Note Date: 01/11/22 Principal diagnosis: morbid obesity Patient seen for reevaluation. She was last seen 6 months ago. Complaining of intermittent vomiting episodes and daily nausea. Mild heartburn at times. Still takes Prilosec 20 mg once daily. Patient says her symptoms are worse with fatty foods or high-protein foods. She calls it her for bite syndrome. She states that after 4 bites of food she typically begins having symptoms. Patient with previous history of hiatal hernia seen on CAT scan and EGD. Also had issues with her gallbladder possibly but never followed through with ultrasound of the gallbladder. Patient was offered tertiary care evaluation but declined. Objective - Vital Signs Vital signs: Vital Signs Temp 98 F 01/11/22 13:22 Pulse 72 01/11/22 13:22 Resp BP 152/91 01/11/22 13:22 Pulse Ox FiO2 Intake & Output 01/10/22 01/11/22 01/11/22 18:59 06:59 18:59 Weight 78.471 kg - Exam Abdomen: Soft, nontender, nondistended Assessment/Plan (1) Morbid obesity with BMI of 40.0-44.9, adult Narrative/Plan: 61-year-old female with nausea and intermittent vomiting after previous sleeve gastrectomy. Patient with hiatal hernia seen on previous workup. I offered consideration for gastric bypass conversion or evaluation for repair hiatal hernia. She would like to avoid that at this time. We also discussed options of further gallbladder workup which she would like to hold off on that. She will monitor her symptoms. Plan recheck 6 months. Plan: Date: 01/11/22 Initial Weight: 110.677 kg Initial BMI: 44.6 Current Weight: 78.471 kg Current BMI: 31.6 Type of Surgery: Total Volume in Band: Previous Volume: Volume Removed: Volume Added: Band Size:
[2022-01-11 19:34] LABS: African American GFR (CKD) 88.5 (60.0-200.0); Albumin 4.4 g/dL (3.8-4.9); Albumin/Globulin Ratio 1.6 (1.60-3.17); Anion Gap 12.7 mmol/L (10.00-18.00); BUN/Creat Ratio 26.12 Ratio (12.00-20.00); Blood Urea Nitrogen 21.5 mg/dL (9.0-27.0); Calcium 9.6 mg/dL (8.7-10.3); Globulin 2.7 g/dL (1.6-3.3); Non-African American GFR(CKD) 76.4 (60.0-200.0); Potassium 4.2 mmol/L (3.5-5.5); Total Bilirubin 0.3 mg/dL (0.30-1.20); Total Protein 7.1 g/dL (6.2-8.2)
[2022-01-11 20:20] LABS: HGB 11.8 g/dL (12.0-15.0); MCH 28.1 pg (27.0-32.0); MCHC 31.1 g/dL (32.0-37.0); MCV 90.5 fL (80.0-97.0); Mean Platelet Volume 11.4 fL (9.5-12.2); NRBC Per 100 WBC 0 /100 WBCS (0.0-0.0); Platelet Count 222 X 10*3/uL (140-440); RDW 12.7 % (11.5-14.5); WBC 7.68 X 10*3/uL (4.50-10.00)
== END ==
LOC: BARWHC3 12:40
PROVIDERS: ATTEND Surgery
DX: E66.01 Morbid (severe) obesity due to excess calories (principal); Z68.31 Body mass index [BMI] 31.0-31.9, adult; E55.9 Vitamin D deficiency, unspecified; K90.89 Other intestinal malabsorption; Z88.8 Allergy status to other drugs, medicaments and biological substances; Z91.041 Radiographic dye allergy status
CPT/HCPCS: 84425; 80053; 82607; 82746; 83540; 85027; 82306; 36415; G0463; 99211

== ENCOUNTER → 2022-01-25 | Outpatient (CLI) | payer MEDICARE, OTHER ==
[2022-01-25 15:54] LABS: ALT 15 U/L (8-44); AST 18 U/L (13-35); African American GFR (CKD) 107.6 (60.0-200.0); Albumin 4.4 g/dL (3.8-4.9); Albumin/Globulin Ratio 1.91 (1.60-3.17); Alkaline Phosphatase 80 U/L (41-126); BUN/Creat Ratio 23.71 Ratio (12.00-20.00); Blood Urea Nitrogen 16.6 mg/dL (9.0-27.0); Calcium 9.7 mg/dL (8.7-10.3); Carbon Dioxide 26.8 mmol/L (20.0-27.5); Chloride 104 mmol/L (96-109); Chol/HDL Ratio 2.23 Ratio; Globulin 2.3 g/dL (1.6-3.3); Glucose 109 mg/dL (70-110); LDL Cholesterol,Calculated 49.6 mg/dL (0.0-131.0); Non-African American GFR(CKD) 92.9 (60.0-200.0); Potassium 4.4 mmol/L (3.5-5.5); Sodium 142 mmol/L (135-145); Total Protein 6.7 g/dL (6.2-8.2); VLDL Calculation 19.78 mg/dL (5.00-40.00)
[2022-01-25 18:50] LABS: Microalbumin Creatinine Ratio <30 mg/g Creat (0-30); Urine Creatinine 55.1 mg/dL (28.0-217.0)
== END | disposition home or self-care (01) ==
LOC: LABWHC1 10:10
PROVIDERS: ATTEND Internal Medicine Endocrinology, Diabetes & Metabolism
DX: E11.65 Type 2 diabetes mellitus with hyperglycemia (principal)
CPT/HCPCS: 36415; 80053; 80061; 82043; 82570; 83036; 84443

== ENCOUNTER → 2022-02-21 | Outpatient (CLI) | payer MEDICARE, OTHER ==
--- NOTE | 2022-02-21 08:03 | US ---
EXAMINATION TYPE: US gallbladder DATE OF EXAM: 02/21/2022 COMPARISON: CTA chest abdomen pelvis March 17, 2021. CLINICAL HISTORY: R10.13 EPIGASTRIC PAIN. Pain nausea and vomiting exam limited due to overlying tahir l gas. TECHNIQUE: Multiple sonographic images of the right upper quadrant are obtained. FINDINGS: EXAM MEASUREMENTS: Liver Length: 14.6 cm Gallbladder Wall: Not visualized due to bowel gas. CBD: .8 cm Right Kidney: 10 x 5.1 x 5.1 cm MINK SLICER NOTES: Pancreas: Obscured by bowel gas Liver: Increased attenuation Gallbladder: Not visualized due to bowel gas. CBD: wnl Right Kidney: wnl The pancreas and gallbladder are obscured by overlying bowel gas. Common bile duct within normal limi ts. Increased attenuation to the liver without focal lesion. Right kidney is unremarkable without beverley dence of hydronephrosis, shadowing calculi, contour deforming solid mass. IMPRESSION: 1. Limited examination due to overlying bowel gas with nonvisualization of the gallbladder, pancreas, and proximal aorta. 2. Hepatic steatosis.
== END | disposition home or self-care (01) ==
LOC: RADUSWWP 07:31
PROVIDERS: ATTEND Surgery
DX: K76.0 Fatty (change of) liver, not elsewhere classified (principal); R10.13 Epigastric pain
CPT/HCPCS: 76705

== ENCOUNTER → 2022-03-09 | Outpatient (CLI) | payer MEDICARE, OTHER ==
[2022-03-09 11:35] LABS: African American GFR (CKD) >90 (>60 ml/min/1.73 sqM); Blood Urea Nitrogen 21 mg/dL (7-17); Non-African American GFR(CKD) >90 (>60 ml/min/1.73 sqM)
--- NOTE | 2022-03-09 13:18 | CT ---
"EXAMINATION TYPE: CT abdomen pelvis w con CT DLP: 1025.5 mGycm, Automated exposure control for dose reduction was used. DATE OF EXAM: 03/09/2022 1:05 PM COMPARISON: CT abdomen pelvis most recent from 03/17/2021. CLINICAL INDICATION:Female, 61 years old with history of RUQ PAIN R10.11; abd pain TECHNIQUE: Axial CT of the abdomen and pelvis. Sagittal and coronal reformats were created on a [employer] workstation. Contrast used:70 mL of Isovue 300 with IV Contrast, Oral contrast used: with Oral Contrast FINDINGS: LOWER CHEST: Unremarkable ABDOMEN LIVER: Unremarkable GALLBLADDER AND BILE DUCTS: The gallbladder is decompressed with high density material. High density 5 mm calculus is seen within the distal common bile duct with associated central intrahepatic and ext rahepatic biliary dilation. PANCREAS: Unremarkable. SPLEEN: Unremarkable. ADRENAL GLANDS: Unremarkable. KIDNEYS AND URETERS: No evidence of hydronephrosis or renal calculus. The ureters are unremarkable. PELVIS BLADDER: Unremarkable REPRODUCTIVE: Unremarkable. ABDOMEN & PELVIS STOMACH AND BOWEL: No evidence of bowel obstruction. A small hiatal hernia. PERITONEUM/RETROPERITONEUM: No evidence of pneumoperitoneum or free fluid. With oral contrast within the distal esophagus. . VASCULATURE: No evidence of aortic aneurysm. MUSCULOSKELETAL: No acute osseous abnormalities LYMPH NODES: No gross evidence for lymphadenopathy. SOFT TISSUE/ABDOMINAL WALL: Unremarkable IMPRESSION: 1. Choledocholithiasis with 5 mm calculus in the distal common bile duct. This can be confirmed with MRCP, consider ERCP for definitive treatment. 2. Hiatal hernia with ingested oral contrast within the distal esophagus. Correlate with reflux/esop hageal dysmotility. 3. Post gastric sleeve changes to the stomach. 4. Biliary sludge. A Yellow level critical message alert has been initiated for Antione Kulkarni MD via the [employer] 36 0 | Critical Results System on 03/09/2022 1:15 PM. This message alert has been sent to Antione Kulkarni MD via the preferences provided by the clinician for the receipt of Radiology Critical Findings. Mess age ID [id number]."
== END | disposition home or self-care (01) ==
LOC: RADCTMAIN 10:30
PROVIDERS: ATTEND Surgery
DX: K80.50 Calculus of bile duct without cholangitis or cholecystitis without obstruction (principal); K44.9 Diaphragmatic hernia without obstruction or gangrene; K83.8 Other specified diseases of biliary tract; Z98.890 Other specified postprocedural states
CPT/HCPCS: 82565; 84520; 74177; Q9967

== ENCOUNTER 2022-04-29 07:14 | Day surgery (SDC) | payer MEDICARE, OTHER ==
[2022-04-28 08:27] VITALS: BMI 31.1
[~2022-04-29 07:14] MED LIST changes: +LEVOFLOXACIN 500MG-D5W PMX 500 MG in DEXTROSE/WATER 1 100ML.BAG IVPB STA
[2022-04-29] MEDS ORDERED: INDOMETHACIN 100 MG SUPPOSITORY RECTAL ONE (07:23)
[2022-04-29 07:35] VITALS: RESP 16; TEMP 97.1
[2022-04-29] MEDS ORDERED: diphenhydrAMINE 50 MG/ML 1 ML VIAL ONE (07:49)
[2022-04-29] MEDS ORDERED: methylPREDNISolone SOD SUCCI 125 MG/2 ML VIAL IVP ONE (07:55)
[2022-04-29] MEDS ORDERED: diphenhydrAMINE 50 MG/ML 1 ML VIAL IVP ONE (07:55)
[2022-04-29] MEDS ORDERED: GLYCOPYRROLATE 0.2 MG/ML 2 ML VIAL ONE (07:58)
[2022-04-29] MEDS ORDERED: MIDAZOLAM 2 MG/2 ML VIAL ONE (07:58)
[2022-04-29] MEDS ORDERED: KETAMINE 10 MG/ML 20 ML VIAL ONE (07:58)
[2022-04-29] MEDS ORDERED: fentaNYL (PF) 50 MCG/ML 2 ML AMP ONE (07:58)
[2022-04-29] MEDS ORDERED: LIDOCAINE 2% INJ 20 MG/ML (2 ML VIAL) ONE (07:58)
[2022-04-29] MEDS ORDERED: PROPOFOL 10 MG/ML 20 ML VIAL IV ONE (07:58)
[2022-04-29 08:03] LABS: Glucose,Whole Blood 186 mg/dL (70-110)
[2022-04-29 08:04] LABS: Basophils % (A) 0 %; Eosinophils # (A) 0.2 k/uL (0-0.7); Eosinophils % (A) 4 %; HCT 34.6 % (34.0-46.0); HGB 11.2 gm/dL (11.4-16.0); Hypochromasia Slight; Lymphocytes # (A) 1.5 k/uL (1.0-4.8); Lymphocytes % (A) 24 %; MCH 25.6 pg (25.0-35.0); MCHC 32.3 g/dL (31.0-37.0); MCV 79.1 fL (80.0-100.0); Mean Platelet Volume 8.1; Monocytes # (A) 0.4 k/uL (0-1.0); Monocytes % (A) 6 %; Neutrophils # (A) 4.1 k/uL (1.3-7.7); Neutrophils % (A) 64 %; Platelet Count 220 k/uL (150-450); RBC 4.38 m/uL (3.80-5.40); RDW 13.9 % (11.5-15.5); WBC 6.3 k/uL (3.8-10.6)
[2022-04-29] MEDS ORDERED: IOPAMIDOL-300 50ML BTL MISCELLANE ONE ×2 (08:10→08:16)
[2022-04-29 08:15] LABS: ALT 64 U/L (4-34); AST 33 U/L (14-36); African American GFR (CKD) >90 (>60 ml/min/1.73 sqM); Albumin 4.5 g/dL (3.5-5.0); Alkaline Phosphatase 153 U/L (38-126); Anion Gap 10 mmol/L; Blood Urea Nitrogen 25 mg/dL (7-17); Calcium 9.9 mg/dL (8.4-10.2); Carbon Dioxide 29 mmol/L (22-30); Chloride 101 mmol/L (98-107); Glucose 207 mg/dL (74-99); Non-African American GFR(CKD) >90 (>60 ml/min/1.73 sqM); Potassium 4.4 mmol/L (3.5-5.1); Sodium 140 mmol/L (137-145); Total Bilirubin 0.7 mg/dL (0.2-1.3); Total Protein 7.6 g/dL (6.3-8.2)
[2022-04-29 08:16] LABS: INR 0.9 (<1.2)
--- NOTE | 2022-04-29 08:43 | P.PCN ---
Date of Procedure: 04/29/22 Procedure(s) Performed: Brief history: Patient is a 61 year-old pleasant lady scheduled for an ERCP as part of evaluation of abdominal pain on and off for the last several months duration. As a part of workup she had abdominal CAT scan that revealed a small filling defect in the distal common bile duct suspicious for CBD the stone. She is hence scheduled for an ERCP for CBD stone extraction Procedure performed: ERCP with biliary sphincterotomy and CBD stone extraction Preoperative diagnoses: Intermittent episodes of epigastric pain and if he still noted on CT of abdomen IV sedation per anesthesia: Procedure: After informed consent was obtained from the patient and after the risks benefits and complications including bleeding perforation and pancreatitis explained in detail the patient was brought into the endoscopy unit. The patient was placed in prone position and IV conscious sedation was administered by anesthesia under continuous monitoring. The Olympus side-viewing duodenoscope was then inserted into the mouth and esophagus intubated without any difficulty. The scope was gradually advanced into the stomach and duodenum. The major papilla was identified without any difficulty. Initial cannulation of the common bile duct resulted in opacification of the bile duct that appeared slightly dilated measuring about 8-9 mm in diameter. There was a small 5 mm filling defect noted in the distal common bile duct. There was no intrahepatic biliary ductal dilation. At this time the catheter was exchanged over a guidewire with a biliary sphincterotome and a bili sphincterotomy was performed at 12 o'clock position and was examined and was extended to 1 cm. Following this 11 mm balloon was passed into the proximal CBD and was inflated and gently withdrawn and a small stone was seen exiting the ampulla. This maneuver was repeated 2 more times and no other filling defects were noted. Patient tolerated the procedure well. The pancreatic duct was intentionally not cannulated during the entire procedure. Impression: 1. Slightly dilated common bile duct with a small filling defect status post biliary sphincterotomy and balloon stone extraction as described above. A 5 mm stone was seen exiting the ampulla 2. Pancreatic duct intentionally not cannulated. Recommendations: The findings of this examination were discussed with the patient as well as a family. She'll be observed in the hospital for 2 hours and she is a symptomatic she'll be discharged home with outpatient follow up in 3-4 weeks.
[2022-04-29] MEDS ORDERED: LACTATED RINGERS 1,000 ML IV ONE (08:45)
[2022-04-29 08:55] LABS: Glucose,Whole Blood 221 mg/dL (70-110)
[2022-04-29] MEDS ORDERED: ONDANSETRON 4 MG/2 ML VIAL ONE (08:59)
[2022-04-29] MEDS ORDERED: ONDANSETRON 4 MG/2 ML VIAL IVP ONE (09:00)
[2022-04-29] MEDS ORDERED: KETOROLAC 15 MG/ML 1 ML VIAL ONE (09:23)
[2022-04-29] MEDS ORDERED: KETOROLAC 15 MG/ML 1 ML VIAL IVP ONE (09:25)
--- NOTE | 2022-04-29 09:42 | FL ---
EXAMINATION TYPE: FL ERCP HISTORY: Fluoroscopy time Impression: 1. Fluoroscopy support provided to the referring physician.
[2022-04-29] MEDS ORDERED: MORPHINE SULFATE 4 MG/ML SYRINGE ONE (09:51)
[2022-04-29] MEDS ORDERED: MORPHINE SULFATE 4 MG/ML SYRINGE IV ONE ×2 (09:53→10:20)
[2022-04-29 10:31] VITALS: BP 139/87; PULSE 88
== END 2022-04-29 11:00 | disposition home or self-care (01) ==
LOC: ORWHC2ENDO 07:14
PROVIDERS: ATTEND Internal Medicine Gastroenterology
DX: K80.50 Calculus of bile duct without cholangitis or cholecystitis without obstruction (principal); K83.8 Other specified diseases of biliary tract; Z91.041 Radiographic dye allergy status; E11.9 Type 2 diabetes mellitus without complications; I10 Essential (primary) hypertension; K21.9 Gastro-esophageal reflux disease without esophagitis; E78.5 Hyperlipidemia, unspecified; Z79.899 Other long term (current) drug therapy; Z79.84 Long term (current) use of oral hypoglycemic drugs
CPT/HCPCS: 80053; 85025; 85610; 74330; 43264; 43262; J2250; J2270; J1200; J2930; J2405; J1956; J3010; J1885; J2704; Q9967; J2001

== ENCOUNTER → 2022-06-25 | Outpatient (CLI) | payer MEDICARE, OTHER ==
[2022-06-25 13:33] LABS: HCT 30.3 % (37.2-46.3); HGB 8.6 g/dL (12.0-15.0); MCH 22.4 pg (27.0-32.0); MCHC 28.4 g/dL (32.0-37.0); MCV 78.9 fL (80.0-97.0); Mean Platelet Volume 10.7 fL (9.5-12.2); NRBC Per 100 WBC 0 /100 WBCS (0.0-0.0); Platelet Count 237 X 10*3/uL (140-440); RBC 3.84 X 10*6/uL (4.10-5.20); RDW 16.4 % (11.5-14.5); WBC 6.81 X 10*3/uL (4.50-10.00)
[2022-06-25 13:52] LABS: African American GFR (CKD) 96.5 (60.0-200.0); Albumin 4.3 g/dL (3.8-4.9); Albumin/Globulin Ratio 1.79 (1.60-3.17); Anion Gap 11.4 mmol/L (10.00-18.00); BUN/Creat Ratio 28.72 Ratio (12.00-20.00); Calcium 9.7 mg/dL (8.7-10.3); Carbon Dioxide 25.9 mmol/L (20.0-27.5); Globulin 2.4 g/dL (1.6-3.3); Non-African American GFR(CKD) 83.3 (60.0-200.0); Potassium 4.5 mmol/L (3.5-5.5); Total Bilirubin 0.3 mg/dL (0.30-1.20); Total Protein 6.7 g/dL (6.2-8.2)
== END | disposition home or self-care (01) ==
LOC: LABWHC1 09:24
PROVIDERS: ATTEND Surgery
DX: E66.01 Morbid (severe) obesity due to excess calories (principal); K90.89 Other intestinal malabsorption; E55.9 Vitamin D deficiency, unspecified
CPT/HCPCS: 36415; 80053; 82306; 82607; 82746; 83540; 84425; 85027

== ENCOUNTER 2022-06-30 13:15 | Emergency (ER) | payer MEDICARE, OTHER ==
[2022-06-30 13:23] VITALS: RESP 18
--- NOTE | 2022-06-30 14:09 | ED ---
General Adult HPI - General Chief complaint: Recheck/Abnormal Lab/Rx Stated complaint: abn labs - sent by pcp Time Seen by Provider: 06/30/22 13:30 Source: patient, RN notes reviewed, old records reviewed Mode of arrival: ambulatory Limitations: no limitations - History of Present Illness Initial comments: This is a 61-year-old female who presents emergency Department complaining that her hemoglobin is been low according to her primary medical care doctor she was sent in to be evaluated. Patient states she vomits 34 times a week but never has had any blood or coffee ground emesis. Patient states she has done this vomiting since she's had a gastric sleeve years ago. Patient states in March or April she had an ERCP to have a stone removed. Patient states she supposed to have her gallbladder removed at some point in time. Patient denies any black or bloody stools. Patient states she is a little bit dizzy at times but she's not near syncopal she denies chest pain difficulty breathing shortness of breath or palpitation. - Related Data Home Medications Medication Instructions Recorded Confirmed Atorvastatin [Lipitor] 80 mg PO HS 08/16/19 06/30/22 Bariatric Fusion 1 tab PO DAILY 12/25/20 06/30/22 Dapagliflozin Propanediol [Farxiga] 10 mg PO DAILY 03/17/21 06/30/22 Furosemide [Lasix] 20 mg PO DAILY PRN 06/30/22 06/30/22 Magnesium 240mg 1 tab PO DAILY 06/30/22 06/30/22 Pioglitazone [Actos] 30 mg PO DAILY 06/30/22 06/30/22 lisinopriL [Zestril] 5 mg PO DAILY 06/30/22 06/30/22 Previous Rx's Medication Instructions Recorded Omeprazole [PriLOSEC] 40 mg PO DAILY #30 capsule. 01/15/20 Allergies Allergy/AdvReac Type Severity Reaction Status Date / Time losartan potassium Allergy Severe Dyspnea, Verified 06/30/22 14:12 [From Cozaar] Heart palpitations Iodinated Contrast Media AdvReac Unknown ELEVATED Verified 06/30/22 14:12 [Iodinated Contrast Media - BP AND IV Dye] PULSE MARQUES SHAMPOO Allergy Swelling Uncoded 06/30/22 14:12 OF FACE IV CONTRAST DYE AdvReac Unknown Elevated Uncoded 06/30/22 14:12 Blood pressure & pulse.palpitations Review of Systems ROS Statement: Those systems with pertinent positive or pertinent negative responses have been documented in the HPI. ROS Other: All systems not noted in ROS Statement are negative. Past Medical History Past Medical History: Diabetes Mellitus, GERD/Reflux, Hyperlipidemia, Hypertension, Osteoarthritis (OA) Additional Past Medical History / Comment(s): HX OF BOILS-groin, abdominal pain, tinnitus left ear History of Any Multi-Drug Resistant Organisms: None Reported Past Surgical History: Bariatric Surgery, Section, Orthopedic Surgery, Tubal Ligation Additional Past Surgical History / Comment(s): SHAMAR EYE VITRECTOMY, CERVICAL NECK FUSION, RT ROTATOR CUFF, RT CARPAL TUNNEL RELEASE.EGD X2, COLONOSCOPY, right thumb reattached after injury, sleeve gastrectomy 01-13-20. ingrown toenail removed 2020. I&D cyst on abdomen, rt cataract surgery, laser eye surgery. Past Anesthesia/Blood Transfusion Reactions: No Reported Reaction Past Psychological History: No Psychological Hx Reported Smoking Status: Never smoker Past Alcohol Use History: None Reported Past Drug Use History: None Reported - Past Family History Sister(s) Family Medical History: Cancer General Exam - General Exam Comments Initial Comments: GENERAL: Patient is well-developed and well-nourished. Patient is nontoxic and well- hydrated and is in no acute distress. ENT: Neck is soft and supple. No significant lymphadenopathy is noted. Oropharynx is clear. Moist mucous membranes. Neck has full range of motion without eliciting any pain. EYES: The sclera were anicteric and conjunctiva were pink and moist. Extraocular movements were intact and pupils were equal round and reactive to light. Eyelids were unremarkable. PULMONARY: Unlabored respirations. Good breath sounds bilaterally. No audible rales rhonchi or wheezing was noted. CARDIOVASCULAR: There is a regular rate and rhythm without any murmurs gallops or rubs. ABDOMEN: Soft and nontender with normal bowel sounds. SKIN: Skin is clear with no lesions or rashes and otherwise unremarkable. NEUROLOGIC: Patient is alert and oriented x3. Cranial nerves II through XII are grossly intact. Motor and sensory are also intact. Normal speech, volume and content. Symmetrical smile. MUSCULOSKELETAL: Normal extremities with adequate strength and full range of motion. LYMPHATICS: No significant lymphadenopathy is noted PSYCHIATRIC: Normal psychiatric evaluation. Limitations: no limitations Course Vital Signs 06/30/22 13:19 Temperature 97.8 F Pulse Rate 93 Respiratory 18 Rate Blood Pressure 157/85 O2 Sat by Pulse 100 Oximetry Medical Decision Making - Medical Decision Making EKG as interpreted by myself shows a sinus rhythm at 60 bpm OK interval 232 QRS is 81 QT interval 4:15 QTC is 432. Patient's EKG shows no ST segment elevation or depression. Was pt. sent in by a medical professional or institution (, PA, HEARING OFFICER, urgent care, hospital, or snf...) When possible be specific @ -Patient's primary medical care doctor sent the emergency department Did you speak to anyone other than the patient for history (EMS, parent, family, police, friend...)? What history was obtained from this source @ -No Did you review nursing and triage notes (agree or disagree)? Why? @ -I reviewed and agree with nursing and triage notes Were old charts reviewed (outside hosp., previous admission, EMS record, old EKG, old radiological studies, urgent care reports/EKG's, snf records)? Report findings @ -I reviewed prior lab work on this patient Differential Diagnosis (chest pain, altered mental status, abdominal pain women, abdominal pain men, vaginal bleeding, weakness, fever, dyspnea, syncope, headache, dizziness, GI bleed, back pain, seizure, CVA, palpatations, mental health, musculoskeletal)? @ -Differential GI Bleed: Esophageal varices, aortoenteric fistula, Suzy-Jones, gastritis, peptic ulcer disease, diverticulosis, inflammatory bowel disease, hemorrhoids, fissure, colitis, malignancy, Meckels diverticulum, this is not meant to be an all- inclusive list. EKG interpreted by me (3pts min.). @ -As above X-rays interpreted by me (1pt min.). @ -None done CT interpreted by me (1pt min.). @ -None done U/S interpreted by me (1pt. min.). @ -None done What testing was considered but not performed or refused? (CT, X-rays, U/S, labs)? Why? @ -None What meds were considered but not given or refused? Why? @ -None Did you discuss the management of the patient with other professionals (professionals i.e. , WEST, HEARING OFFICER, lab, RT, psych nurse, manager social responsibility, match up person, teacher, eeo officer, power plant operations manager)? Give summary @ -No Was smoking cessation discussed for >3mins.? @ -No Was critical care preformed (if so, how long)? @ -No Were there social determinants of health that impacted care today? How? (Homelessness, low income, unemployed, alcoholism, drug addiction, transportation, low edu. Level, literacy, decrease access to med. care, group home, rehab)? @ -No Was there de-escalation of care discussed even if they declined (Discuss DNR or withdrawal of care, Hospice)? DNR status @ -No What co-morbidities impacted this encounter? (DM, HTN, Smoking, COPD, CAD, Cancer, CVA, ARF, Chemo, Hep., AIDS, mental health diagnosis, sleep apnea, morbid obesity)? @ -None Was patient admitted / discharged? Hospital course, mention meds given and route, prescriptions, significant lab abnormalities, going to OR and other pertinent info. @ -She came in a repeated blood work and her hemoglobin actually went up and she was already given a test to take at home for testing blood in the stool and she had an appointment Dr. Kulkarni on Monday and the patient was asymptomatic and so she did not want to stay and she did not want to get any further workup until she saw Dr. Rebolledo social be discharged home Undiagnosed new problem with uncertain prognosis? @ -No Drug Therapy requiring intensive monitoring for toxicity (Heparin, Nitro, Insulin, Cardizem)? @ -No Were any procedures done? @ -No Diagnosis/symptom? @ -Anemia Acute, or Chronic, or Acute on Chronic? @ -Acute Uncomplicated (without systemic symptoms) or Complicated (systemic symptoms)? @ -Complicated Side effects of treatment? @ -No Exacerbation, Progression, or Severe Exacerbation? @ -No Poses a threat to life or bodily function? How? (Chest pain, USA, LA, pneumonia, PE, COPD, DKA, ARF, appy, cholecystitis, CVA, Diverticulitis, Homicidal, Suicidal, threat to staff... and all critical care pts) @ -No - Lab Data Result diagrams: 06/30/22 14:00 06/30/22 14:00 Lab Results 06/30/22 06/30/22 06/30/22 Range/Units 14:00 14:00 14:00 WBC 7.2 (3.8-10.6) k/uL RBC 4.12 (3.80-5.40) m/uL Hgb 9.4 L D (11.4-16.0) gm/dL Hct 31.7 L (34.0-46.0) % MCV 77.1 L (80.0-100.0) fL MCH 22.9 L (25.0-35.0) pg MCHC 29.7 L (31.0-37.0) g/dL RDW 16.5 H (11.5-15.5) % Plt Count 230 (150-450) k/uL MPV 8.3 Neutrophils % 67 % Lymphocytes % 24 % Monocytes % 5 % Eosinophils % 2 % Basophils % 0 % Neutrophils # 4.8 (1.3-7.7) k/uL Lymphocytes # 1.7 (1.0-4.8) k/uL Monocytes # 0.4 (0-1.0) k/uL Eosinophils # 0.2 (0-0.7) k/uL Basophils # 0.0 (0-0.2) k/uL Hypochromasia Marked Anisocytosis Slight Microcytosis Slight PT 9.9 (9.0-12.0) sec INR 0.9 (<1.2) APTT 21.9 L (22.0-30.0) sec Sodium 142 (137-145) mmol/L Potassium 4.1 (3.5-5.1) mmol/L Chloride 105 (98-107) mmol/L Carbon Dioxide 25 (22-30) mmol/L Anion Gap 12 mmol/L BUN 21 H (7-17) mg/dL Creatinine 0.61 (0.52-1.04) mg/dL Est GFR (CKD-EPI)AfAm >90 (>60 ml/min/1.73 sqM) Est GFR (CKD-EPI)NonAf >90 (>60 ml/min/1.73 sqM) Glucose 128 H (74-99) mg/dL Calcium 9.5 (8.4-10.2) mg/dL Magnesium 2.1 (1.6-2.3) mg/dL Total Bilirubin 0.5 (0.2-1.3) mg/dL AST 26 (14-36) U/L ALT 21 (4-34) U/L Alkaline Phosphatase 92 (38-126) U/L Troponin I (0.000-0.034) ng/mL Total Protein 7.5 (6.3-8.2) g/dL Albumin 4.4 (3.5-5.0) g/dL Blood Type Blood Type Recheck Bld Type Recheck Status Antibody Screen Spec Expiration Date 06/30/22 06/30/22 Range/Units 14:00 14:00 WBC (3.8-10.6) k/uL RBC (3.80-5.40) m/uL Hgb (11.4-16.0) gm/dL Hct (34.0-46.0) % MCV (80.0-100.0) fL MCH (25.0-35.0) pg MCHC (31.0-37.0) g/dL RDW (11.5-15.5) % Plt Count (150-450) k/uL MPV Neutrophils % % Lymphocytes % % Monocytes % % Eosinophils % % Basophils % % Neutrophils # (1.3-7.7) k/uL Lymphocytes # (1.0-4.8) k/uL Monocytes # (0-1.0) k/uL Eosinophils # (0-0.7) k/uL Basophils # (0-0.2) k/uL Hypochromasia Anisocytosis Microcytosis PT (9.0-12.0) sec INR (<1.2) APTT (22.0-30.0) sec Sodium (137-145) mmol/L Potassium (3.5-5.1) mmol/L Chloride (98-107) mmol/L Carbon Dioxide (22-30) mmol/L Anion Gap mmol/L BUN (7-17) mg/dL Creatinine (0.52-1.04) mg/dL Est GFR (CKD-EPI)AfAm (>60 ml/min/1.73 sqM) Est GFR (CKD-EPI)NonAf (>60 ml/min/1.73 sqM) Glucose (74-99) mg/dL Calcium (8.4-10.2) mg/dL Magnesium (1.6-2.3) mg/dL Total Bilirubin (0.2-1.3) mg/dL AST (14-36) U/L ALT (4-34) U/L Alkaline Phosphatase (38-126) U/L Troponin I <0.012 (0.000-0.034) ng/mL Total Protein (6.3-8.2) g/dL Albumin (3.5-5.0) g/dL Blood Type B Negative Blood Type Recheck B Neg Bld Type Recheck Status No Antibody Screen NEGATIVE Spec Expiration Date 07/03/20222299 Disposition Clinical Impression: Anemia Disposition: HOME SELF-CARE Condition: Good Additional Instructions: Patient is to return to the emergency department she has any rectal bleeding or feeling lightheaded and having chest pain or difficulty breathing. Patient should follow up as scheduled Dr. Kulkarni Is patient prescribed a controlled substance at d/c from ED?: No Referrals: Karlos Cortez MD [Primary Care Provider] - 1-2 days Time of Disposition: 15:20
[2022-06-30 14:32] LABS: ALT 21 U/L (4-34); AST 26 U/L (14-36); African American GFR (CKD) >90 (>60 ml/min/1.73 sqM); Albumin 4.4 g/dL (3.5-5.0); Alkaline Phosphatase 92 U/L (38-126); Anion Gap 12 mmol/L; Anisocytosis Slight; Basophils % (A) 0 %; Blood Urea Nitrogen 21 mg/dL (7-17); Calcium 9.5 mg/dL (8.4-10.2); Carbon Dioxide 25 mmol/L (22-30); Chloride 105 mmol/L (98-107); Eosinophils # (A) 0.2 k/uL (0-0.7); Eosinophils % (A) 2 %; Glucose 128 mg/dL (74-99); HCT 31.7 % (34.0-46.0); Hypochromasia Marked; Lymphocytes # (A) 1.7 k/uL (1.0-4.8); Lymphocytes % (A) 24 %; MCH 22.9 pg (25.0-35.0); MCHC 29.7 g/dL (31.0-37.0); MCV 77.1 fL (80.0-100.0); Magnesium 2.1 mg/dL (1.6-2.3); Mean Platelet Volume 8.3; Microcytosis Slight; Monocytes # (A) 0.4 k/uL (0-1.0); Monocytes % (A) 5 %; Neutrophils # (A) 4.8 k/uL (1.3-7.7); Neutrophils % (A) 67 %; Non-African American GFR(CKD) >90 (>60 ml/min/1.73 sqM); Platelet Count 230 k/uL (150-450); Potassium 4.1 mmol/L (3.5-5.1); RBC 4.12 m/uL (3.80-5.40); RDW 16.5 % (11.5-15.5); Sodium 142 mmol/L (137-145); Total Bilirubin 0.5 mg/dL (0.2-1.3); Total Protein 7.5 g/dL (6.3-8.2); WBC 7.2 k/uL (3.8-10.6)
[2022-06-30 14:34] LABS: HGB 9.4 gm/dL (11.4-16.0)
[2022-06-30 14:49] LABS: INR 0.9 (<1.2); Partial Thromboplastin Time 21.9 sec (22.0-30.0); Prothrombin Time 9.9 sec (9.0-12.0)
[2022-06-30 15:51] VITALS: BP 144/74; PULSE 78; TEMP 98.1
== END 2022-06-30 15:51 | disposition home or self-care (01) ==
LOC: EC 13:15
DX: D64.9 Anemia, unspecified (principal); E11.9 Type 2 diabetes mellitus without complications; I10 Essential (primary) hypertension; M19.90 Unspecified osteoarthritis, unspecified site; Z79.1 Long term (current) use of non-steroidal anti-inflammatories (NSAID); Z79.84 Long term (current) use of oral hypoglycemic drugs; Z79.899 Other long term (current) drug therapy; Z88.6 Allergy status to analgesic agent; Z91.041 Radiographic dye allergy status; Z88.8 Allergy status to other drugs, medicaments and biological substances
CPT/HCPCS: 36415; 80053; 83735; 84484; 85025; 85610; 85730; 86850; 86900; 86901; 99284

== ENCOUNTER → 2022-06-30 | Outpatient (CLI) | payer MEDICARE, OTHER ==
--- NOTE | 2022-06-30 12:58 | CT ---
EXAMINATION TYPE: CT abdomen pelvis wo con CT DLP: 660.6 mGycm, Automated exposure control for dose reduction was used. DATE OF EXAM: 06/30/2022 12:47 PM COMPARISON: CT abdomen pelvis most recent from 03/09/2022, fluoroscopy 04/29/2022 CLINICAL INDICATION:Female, 61 years old with history of EPIGASTRIC PAIN; EPIGASTRIC PAIN TECHNIQUE: Axial CT of the abdomen and pelvis. Sagittal and coronal reformats were created on a [employer] workstation. Contrast used: None Oral contrast used: without Oral Contrast FINDINGS: LOWER CHEST: Mitral valve annular cusp patient's. Mild hepatomegaly. Small hiatal hernia. ABDOMEN LIVER: Unremarkable GALLBLADDER AND BILE DUCTS: The gallbladder appears absent versus decompressed. There is suspected pn eumobilia centrally. No calcified stone within the extrahepatic biliary system. PANCREAS: Unremarkable. SPLEEN: Unremarkable. ADRENAL GLANDS: Unremarkable. KIDNEYS AND URETERS: No evidence of hydronephrosis or renal calculus. The ureters are unremarkable. PELVIS BLADDER: Unremarkable REPRODUCTIVE: Unremarkable. ABDOMEN & PELVIS STOMACH AND BOWEL: No evidence of bowel obstruction. Postsurgical changes to the gastric lumen. The a ppendix is normal. Moderate to large volume of stool throughout the colon. PERITONEUM/RETROPERITONEUM: No evidence of pneumoperitoneum or free fluid. VASCULATURE: No evidence of aortic aneurysm. MUSCULOSKELETAL: No acute osseous abnormalities LYMPH NODES: No gross evidence for lymphadenopathy. SOFT TISSUE/ABDOMINAL WALL: Bilateral fat-containing inguinal hernias. Suspected meniscal injection c hanges to the anterior abdominal campbell. IMPRESSION: 1. Dilated common bile duct measuring up to 8 mm. Consider complete evaluation with MRCP given patie nt's history of choledocholithiasis. 2. Postsurgical changes to the gastric lumen with small hiatal hernia. 3. Small amount of pneumobilia likely post interventional changes from ERCP on 04/29/2022 4. Moderate to large stool throughout the colon.
== END | disposition home or self-care (01) ==
LOC: RADCTMAIN 12:20
PROVIDERS: ATTEND Family Medicine
DX: K83.8 Other specified diseases of biliary tract (principal); K44.9 Diaphragmatic hernia without obstruction or gangrene
CPT/HCPCS: 74176

== ENCOUNTER → 2022-07-05 | Outpatient (CLI) | payer MEDICARE, OTHER ==
[2022-07-05 13:14] VITALS: BP 145/64; PULSE 77; TEMP 98.1; BMI 31.6
--- NOTE | 2022-07-05 14:24 | P.BASOAP ---
Subjective Progress Note Date: 07/05/22 Principal diagnosis: Anemia Patient here in the office after recent lab values show anemia. Hemoglobin was 8.6. Repeat was 9.4. Iron was low at 30. B12 was normal. Patient was in the ER recently. She has had episodes of lightheadedness and near syncope. Denies rectal bleeding or melena. In the ER a CAT scan was performed. Nothing noted to explain her anemia. She was found have gallstones earlier this year. She was sent for GI evaluation and had ERCP with stone extraction. She says that after the ERCP with stone removal her episodes of vomiting and pain for the most part resolved. On the CAT scan in the ER last week you could not visualize the gallbladder well as it appeared to be either removed or contracted. Mild biliary dilation was seen with a small amount of pneumobilia thought to be present centrally. Patient's liver panel looks good from last ER visit. Objective - Vital Signs Vital signs: Vital Signs Temp 98.1 F 07/05/22 13:10 Pulse 77 07/05/22 13:10 Resp BP 145/64 07/05/22 13:10 Pulse Ox FiO2 Intake & Output 07/04/22 07/05/22 07/05/22 18:59 06:59 18:59 Weight 78.471 kg - Exam Abdomen: Soft, nontender, nondistended Assessment/Plan (1) Anemia Narrative/Plan: 61-year-old female with iron deficiency anemia. We'll proceed with upper and lower endoscopy next week. If no etiology for the patient's anemia is identified recommend hematology evaluation. Patient I discussed that cholecystectomy still should be strongly considered given the recent episode of choledocholithiasis. This will be addressed further after GI workup. Plan: Date: 07/05/22 Initial Weight: 110.677 kg Initial BMI: 44.6 Current Weight: 78.471 kg Current BMI: 31.6 Type of Surgery: Total Volume in Band: Previous Volume: Volume Removed: Volume Added: Band Size:
== END ==
LOC: BARWHC3 12:45
PROVIDERS: ATTEND Surgery
DX: D50.9 Iron deficiency anemia, unspecified (principal); Z91.041 Radiographic dye allergy status; Z68.31 Body mass index [BMI] 31.0-31.9, adult; Z88.8 Allergy status to other drugs, medicaments and biological substances
CPT/HCPCS: 99211

== ENCOUNTER 2022-07-12 08:15 | Day surgery (SDC) | payer MEDICARE, OTHER ==
[2022-07-08 15:50] VITALS: BMI 31.1
[2022-07-12] MEDS ORDERED: LACTATED RINGERS 1,000 ML IV ONE (08:26)
[2022-07-12 08:35] VITALS: TEMP 97
[2022-07-12 08:51] LABS: Glucose,Whole Blood 194 mg/dL (70-110)
[2022-07-12] MEDS ORDERED: LIDOCAINE 2% INJ 20 MG/ML (2 ML VIAL) ONE (08:54)
[2022-07-12] MEDS ORDERED: PROPOFOL 10 MG/ML 20 ML VIAL IV ONE (08:54)
--- NOTE | 2022-07-12 08:56 | P.GSHP ---
History of Present Illness H&P Date: 07/12/22 Chief Complaint: Anemia, screening, GERD 61-year-old female recently found to be iron deficient anemia. Hemoglobin around 8. Denies rectal bleeding or melena. Last colonoscopy 2013. She may have had polyps. Patient had previous EGD and 21 as well. Past Medical History Past Medical History: Diabetes Mellitus, GERD/Reflux, Hyperlipidemia, Hypertension, Osteoarthritis (OA), Syncope Additional Past Medical History / Comment(s): HX OF BOILS-groin, abdominal pain, tinnitus left ear, syncopal episodes since 2022 Also anemic low hgb and iron History of Any Multi-Drug Resistant Organisms: None Reported Past Surgical History: Bariatric Surgery, Section, Orthopedic Surgery, Tubal Ligation Additional Past Surgical History / Comment(s): SHAMAR EYE VITRECTOMY, CERVICAL NECK FUSION, RT ROTATOR CUFF, RT CARPAL TUNNEL RELEASE.EGD X2, COLONOSCOPY, right thumb reattached after injury, sleeve gastrectomy 01-13-20. ingrown toenail removed 2020. I&D cyst on abdomen, rt cataract surgery, laser eye surgery. april 2022 gall stone removed Past Anesthesia/Blood Transfusion Reactions: No Reported Reaction Smoking Status: Never smoker - Past Family History Sister(s) Family Medical History: Cancer Additional Family Medical History / Comment(s): bone brain lung Medications and Allergies Home Medications Medication Instructions Recorded Confirmed Type Atorvastatin [Lipitor] 80 mg PO HS 08/16/19 07/08/22 History Omeprazole [PriLOSEC] 40 mg PO DAILY #30 capsule. 01/15/20 07/08/22 Rx Bariatric Fusion 1 tab PO DAILY 12/25/20 07/12/22 History Dapagliflozin Propanediol [Farxiga] 10 mg PO DAILY 03/17/21 07/08/22 History Furosemide [Lasix] 20 mg PO DAILY PRN 06/30/22 07/12/22 History Magnesium 240mg 1 tab PO DAILY 06/30/22 07/12/22 History Pioglitazone [Actos] 30 mg PO DAILY 06/30/22 07/08/22 History lisinopriL [Zestril] 5 mg PO DAILY 06/30/22 07/12/22 History Allergies Allergy/AdvReac Type Severity Reaction Status Date / Time losartan potassium Allergy Severe Dyspnea, Verified 07/08/22 15:41 [From Cozaar] Heart palpitations Iodinated Contrast Media AdvReac Unknown ELEVATED Verified 07/08/22 15:41 [Iodinated Contrast Media - BP AND IV Dye] PULSE MARQUES SHAMPOO Allergy Swelling Uncoded 07/08/22 15:41 OF FACE IV CONTRAST DYE AdvReac Unknown Elevated Uncoded 07/08/22 15:41 Blood pressure & pulse.palpitations Surgical - Exam Vital Signs Temp Pulse Resp BP Pulse Ox 97 F L 77 18 146/86 100 07/12/22 08:34 07/12/22 08:34 07/12/22 08:34 07/12/22 08:34 07/12/22 08:34 Physical exam: General: Well-developed, well-nourished HEENT: Normocephalic, sclerae nonicteric Abdomen: Nontender, nondistended Extremities: No edema Neuro: Alert and oriented Results - Labs Abnormal Lab Results - Last 24 Hours (Table) 07/12/22 Range/Units 08:44 POC Glucose (mg/dL) 194 H (70-110) mg/dL Assessment and Plan (1) Anemia Narrative/Plan: Will proceed with upper and lower endoscopy. Current Visit: No Status: Acute Code(s): D64.9 - ANEMIA, UNSPECIFIED SNOMED Code(s): 027932236
[2022-07-12 08:58] LABS: Anisocytosis Slight; Basophils % (A) 1 %; Eosinophils # (A) 0.1 k/uL (0-0.7); Eosinophils % (A) 3 %; HCT 29.7 % (34.0-46.0); Hypochromasia Marked; Lymphocytes # (A) 1.4 k/uL (1.0-4.8); Lymphocytes % (A) 28 %; MCH 23.6 pg (25.0-35.0); MCHC 30.3 g/dL (31.0-37.0); MCV 77.9 fL (80.0-100.0); Mean Platelet Volume 7.8; Microcytosis Slight; Monocytes # (A) 0.3 k/uL (0-1.0); Monocytes % (A) 6 %; Neutrophils % (A) 60 %; Platelet Count 261 k/uL (150-450); RBC 3.81 m/uL (3.80-5.40); RDW 17.1 % (11.5-15.5)
--- NOTE | 2022-07-12 09:25 | P.PCN ---
Date of Procedure: 07/12/22 Procedure(s) Performed: PREOPERATIVE DIAGNOSIS: GERD, screening, anemia POSTOPERATIVE DIAGNOSIS: Mild gastritis, mild diverticulosis PROCEDURE: 1. EGD with biopsy 2. Colonoscopy ANESTHESIA: MAC SURGEON: Antione Kulkarni M.D. SPECIMENS: Antrum ENDOSCOPIC PROCEDURE: The patient was on the endoscopy table in the left decubitus position. The Olympus gastroscope was inserted into the oropharynx and passed under direct visualization to the region of the third portion of the duodenum. From that point the scope was slowly withdrawn inspecting all surfaces carefully. There were no neoplastic inflammatory or polypoid lesions throughout the duodenum. The pylorus was widely patent. The stomach was carefu lly inspected. There was minimal gastritis present. A biopsy of the antrum took place to rule out H. pylori. No retroflexion took place because of the previous sleeve. There was the suggestion on withdrawal of the scope of a small 1 cm hiatal hernia. The esophagus was then carefully examined. There were no neoplastic inflammatory or polypoid lesions throughout the visualized esophagus. The patient was kept on the endoscopy table in the left decubitus position. The Olympus colonoscope was inserted into the anus and passed under direct visualization to the base of the cecum. The appendiceal orifice was visualized. From that point the scope was slowly withdrawn inspecting all surfaces carefully. There were no neoplastic inflammatory or polypoid lesions throughout the cecum, ascending, transverse, descending, sigmoid and rectum. There was mild left-sided diverticulosis noted. The patient's prep was slightly suboptimal. Digital rectal examination was normal. The patient was taken to the recovery room in stable condition per anesthesia guidelines. RECOMMENDATIONS: No findings to explain the patient's iron deficiency anemia at this time. Today's hemoglobin 9.0. Recommend hematology consult.
[2022-07-12 09:29] VITALS: RESP 16
[2022-07-12 09:56] VITALS: BP 147/93; PULSE 67
== END 2022-07-12 10:13 | disposition home or self-care (01) ==
LOC: ORWHC2ENDO 08:15
PROVIDERS: ATTEND Surgery
DX: Z12.11 Encounter for screening for malignant neoplasm of colon (principal); K29.50 Unspecified chronic gastritis without bleeding; K21.9 Gastro-esophageal reflux disease without esophagitis; K57.30 Diverticulosis of large intestine without perforation or abscess without bleeding; D64.9 Anemia, unspecified; K44.9 Diaphragmatic hernia without obstruction or gangrene; E11.9 Type 2 diabetes mellitus without complications; E78.5 Hyperlipidemia, unspecified; I10 Essential (primary) hypertension; M19.90 Unspecified osteoarthritis, unspecified site; Z98.51 Tubal ligation status; Z98.890 Other specified postprocedural states; Z80.1 Family history of malignant neoplasm of trachea, bronchus and lung; Z79.84 Long term (current) use of oral hypoglycemic drugs; Z79.899 Other long term (current) drug therapy
CPT/HCPCS: 88305; 85025; 43239; J2704; J2001; G0121

== ENCOUNTER → 2022-07-14 | Outpatient (CLI) | payer MEDICARE, OTHER ==
--- NOTE | 2022-07-15 07:39 | MM ---
Reason for Exam: Screening (asymptomatic). Last mammogram was performed 7 year(s) and 9 month(s) ago. Patient History: Menarche at age 11. First Full-Term at age 30. Late child-bearing (after 30). Postmenopausal. Patient has history of breast feeding. Risk Values: Courtney 5 year model risk: 2.1%. NCI Lifetime model risk: 9.4%. Prior Study Comparison: 11/11/2008 Bilateral Screening Mammogram, [facility]. 11/06/2012 Bilateral Screening Mammogram, [facility]. 10/22/2014 Bilateral Screening Mammogram, [facility]. Tissue Density: The breast tissue is heterogeneously dense. This may lower the sensitivity of mammography. Findings: Analyzed By CAD. Asymmetry left breast middle depth 9.7 cm from the nipple measuring 12 mm on cc view slice 36 of 53. Right breast: There is no suspicious group of microcalcifications or new suspicious mass in either breast. Overall Assessment: Incomplete: need additional imaging evaluation, BI-RAD 0 Management: Diagnostic Mammogram of the left breast. [facility] will attempt to contact patient to return for supplemental views and ultrasound if indicated. Patient should continue monthly self-breast exams. A clinical breast exam by your physician is recommended on an annual basis. This exam should not preclude additional follow-up of suspicious palpable abnormalities. Note on Courtney scores and lifetime risk: 1. A Courtney score greater than 3% is considered moderate risk. If this is the case, consider specialist referral to assess eligibility for a risk reducing agent. 2. If overall lifetime risk for the development of breast cancer is 20% or higher, the patient may qualify for future screening with alternating mammogram and breast MRI. Electronically signed and approved by: Humberto Guzman DO
== END | disposition home or self-care (01) ==
LOC: RADMAMWWP 13:32
PROVIDERS: ATTEND Family Medicine
DX: Z12.31 Encounter for screening mammogram for malignant neoplasm of breast (principal); Z78.0 Asymptomatic menopausal state
CPT/HCPCS: 77063; 77067

== ENCOUNTER → 2022-07-20 | Outpatient (CLI) | payer MEDICARE, OTHER ==
--- NOTE | 2022-07-20 10:51 | MM ---
Reason for Exam: Additional evaluation requested from abnormal screening. Last screening mammogram was performed less than 1 month ago. Patient History: Menarche at age 11. First Full-Term at age 30. Late child-bearing (after 30). Postmenopausal. Patient has history of breast feeding. Risk Values: Courtney 5 year model risk: 2.1%. NCI Lifetime model risk: 9.4%. Prior Study Comparison: 11/06/2012 Bilateral Screening Mammogram, [facility]. 10/22/2014 Bilateral Screening Mammogram, [facility]. 07/14/2022 Bilateral MG 3D screening mammo w/cad, [facility]. Tissue Density: Left: There are scattered fibroglandular densities. Findings: Analyzed By CAD. On tomographic images there is a persistent density in the lower-outer aspect left breast. Example images tomographic image 33 of 55 craniocaudal view and 42 of 57 lateral medial view. Overall Assessment: Incomplete: need additional imaging evaluation, BI-RAD 0 Management: Diagnostic Breast Ultrasound of the left breast. A negative mammogram report should not preclude additional follow up of suspicious palpable abnormalities. Patient should continue monthly self breast exam. A clinical breast exam by your physician is recommended on an annual basis and results should be correlated with mammographic findings. Electronically signed and approved by: Genaro Durant D.O. Radiologis
--- NOTE | 2022-07-20 13:24 | USB ---
Reason for Exam: Additional evaluation requested from abnormal screening. Patient History: Menarche at age 11. First Full-Term at age 30. Late child-bearing (after 29). Postmenopausal. Patient has history of breast feeding. Risk Values: Courtney 5 year model risk: 2.1%. NCI Lifetime model risk: 9.4%. Technique: Method: Targeted. Prior Study Comparison: 11/06/2012 Bilateral Screening Mammogram, [facility]. 10/22/2014 Bilateral Screening Mammogram, [facility]. 07/14/2022 Bilateral MG 3D screening mammo w/cad, [facility]. Findings: The upper outer quadrant of the left breast, the axilla of the left breast and the retroareolar of the left breast were scanned. At the 1:00 position left breast there is an oval circumscribed area measuring 0.7 x 1.1 x 0.4 cm. This may correlate with the mammographic finding. Very short term follow-up is recommended in 3 months with mammogram and ultrasound. Incidental note is made of a small cystlike area at the 12:00 position 8 cm from the nipple measuring 0.4 x 0.2 x 0.3 cm. Overall Assessment: Probably benign, BI-RAD 3 Management: Diagnostic Mammogram of the left breast in 3 months. Diagnostic Breast Ultrasound of the left breast in 3 months. A clinical breast exam by your physician is recommended on an annual basis and results should be correlated with mammographic findings. This exam should not preclude additional follow-up of suspicious palpable abnormalities. Results were given to the patient verbally at the time of exam. Electronically signed and approved by: Genaro Durant D.O. Radiologis
== END | disposition home or self-care (01) ==
LOC: RADMAMWWP 10:11
PROVIDERS: ATTEND Family Medicine
DX: R92.8 Other abnormal and inconclusive findings on diagnostic imaging of breast (principal); Z78.0 Asymptomatic menopausal state
CPT/HCPCS: 77065; 76642; G0279; 77061

== ENCOUNTER → 2022-09-20 | Outpatient (CLI) | payer MEDICARE, OTHER ==
[2022-09-20 10:38] LABS: ALT 18 U/L (4-34); AST 21 U/L (14-36); African American GFR (CKD) >90 (>60 ml/min/1.73 sqM); Albumin 4.1 g/dL (3.5-5.0); Albumin/Globulin Ratio 1.5; Alkaline Phosphatase 84 U/L (38-126); Anion Gap 10 mmol/L; Blood Urea Nitrogen 19 mg/dL (7-17); Calcium 9.4 mg/dL (8.4-10.2); Carbon Dioxide 29 mmol/L (22-30); Chloride 102 mmol/L (98-107); Globulin 2.8 g/dL; Glucose 145 mg/dL (74-99); Magnesium 1.8 mg/dL (1.6-2.3); Non-African American GFR(CKD) >90 (>60 ml/min/1.73 sqM); Potassium 4.5 mmol/L (3.5-5.1); Sodium 141 mmol/L (137-145); Total Bilirubin 0.5 mg/dL (0.2-1.3); Total Protein 6.9 g/dL (6.3-8.2)
[2022-09-20 10:44] LABS: NT-Pro-B-Type Natriuretic Pept 257 pg/mL
[2022-09-20 10:52] LABS: T4, Free (Free Thyroxine) 1.12 ng/dL (0.78-2.19)
[2022-09-20 15:02] LABS: Basophils # (A) 0.03 X 10*3/uL (0.00-0.10); Basophils % (A) 0.5 %; Eosinophils # (A) 0.14 X 10*3/uL (0.04-0.35); Eosinophils % (A) 2.3 %; HCT 41.9 % (37.2-46.3); Lymphocytes % (A) 22.8 %; MCH 27.8 pg (27.0-32.0); MCV 89.5 FL (80.0-97.0); Mean Platelet Volume 11.5 FL (9.5-12.2); Monocytes # (A) 0.34 X 10*3/uL (0.20-1.00); Monocytes % (A) 5.5 %; NRBC Per 100 WBC 0 X 10*3/uL (0.00-0.01); Neutrophils # (A) 4.23 X 10*3/uL (1.80-7.70); Neutrophils % (A) 68.7 %; Platelet Count 173 X 10*3/uL (140-440); RBC 4.68 X 10*6/uL (4.10-5.20); RDW 19.9 % (11.5-14.5); WBC 6.15 X 10*3/uL (4.50-10.00)
[2022-09-20 16:13] LABS: % Iron Saturation 14.58 (12.00-45.00); Ferritin 81.3 ng/mL (10.0-291.0); Iron 43 UG/DL (50-170); Total Iron Binding Capacity 295 UG/DL (228-460)
[2022-09-21 12:00] LABS: Honeybee Venom IgE Class CLASS 0
== END | disposition home or self-care (01) ==
LOC: LABWHC1 09:00
PROVIDERS: ATTEND Family Medicine
DX: I10 Essential (primary) hypertension (principal); D50.9 Iron deficiency anemia, unspecified; T63.441A Toxic effect of venom of bees, accidental (unintentional), initial encounter; Z98.84 Bariatric surgery status; R01.1 Cardiac murmur, unspecified
CPT/HCPCS: 36415; 80053; 82306; 82607; 82728; 82746; 82785; 83540; 83550; 83735; 83880; 84425; 84439; 84443; 85025; 86003

== ENCOUNTER → 2022-10-04 | Outpatient (CLI) | payer MEDICARE, OTHER ==
[2022-10-04 14:07] VITALS: BP 113/66; PULSE 82; TEMP 98; BMI 30.7
--- NOTE | 2022-10-04 16:40 | P.BASOAP ---
Subjective Progress Note Date: 10/04/22 Principal diagnosis: Morbid obesity Patient returns for recheck. Last seen in July. Underwent recent upper and lower endoscopy showing gastritis and diverticulosis. Patient was seen by hematology. She has had 2 iron infusions. She says after that she felt much better although recently has had some near syncopal episodes again. She plans to see hematology again in the near future. She does have intermittent episodes of reflux and regurgitation. Still taking antacids twice daily. Had a recent admission for anaphylaxis after bee sting. Has lost 5 pounds since last visit. Objective - Vital Signs Vital signs: Vital Signs Temp 98 F 10/04/22 14:04 Pulse 82 10/04/22 14:04 Resp BP 113/66 10/04/22 14:04 Pulse Ox FiO2 Intake & Output 10/03/22 10/04/22 10/04/22 18:59 06:59 18:59 Weight 76.204 kg - Exam Abdomen: Soft, nontender, nondistended Assessment/Plan (1) GERD (gastroesophageal reflux disease) Narrative/Plan: 61-year-old female with history of previous sleeve gastrectomy. Patient with weakness episodes again and near syncope. Recommend follow-up with hematology. She states that after she saw hematology and had the iron infusions most of her symptoms resolved for a while. Continue antiacids. Follow-up 3 months. Plan: Date: 10/04/22 Initial Weight: 110.677 kg Initial BMI: 44.6 Current Weight: 76.204 kg Current BMI: 30.7 Type of Surgery: Total Volume in Band: Previous Volume: Volume Removed: Volume Added: Band Size:
== END ==
LOC: BARWHC3 13:50
PROVIDERS: ATTEND Surgery
DX: K21.9 Gastro-esophageal reflux disease without esophagitis (principal); E66.01 Morbid (severe) obesity due to excess calories; R42 Dizziness and giddiness; R53.1 Weakness; Z98.84 Bariatric surgery status; Z68.30 Body mass index [BMI] 30.0-30.9, adult; Z91.030 Bee allergy status; Z91.041 Radiographic dye allergy status; Z88.8 Allergy status to other drugs, medicaments and biological substances
CPT/HCPCS: 99211

== ENCOUNTER → 2022-12-13 | Outpatient (CLI) | payer MEDICARE, OTHER ==
[2022-12-13 14:00] VITALS: BP 145/76; PULSE 67; TEMP 98.2; BMI 32.0
--- NOTE | 2022-12-13 14:25 | P.BASOAP ---
Subjective Progress Note Date: 12/13/22 Principal diagnosis: Morbid obesity Patient returns for recheck. Last seen in September. She states she had Q iron infusions. She was told she did not need to follow-up with pathology any further. Still takes omeprazole 1-2 times daily along with Tums as needed. Still has nausea frequently. No syncopal episodes. States she feels stronger. Weight has been stable. Objective - Vital Signs Vital signs: Vital Signs Temp 98.2 F 12/13/22 13:33 Pulse 67 12/13/22 13:33 Resp BP 145/76 12/13/22 13:33 Pulse Ox FiO2 Intake & Output 12/12/22 12/13/22 12/13/22 18:59 06:59 18:59 Weight 79.379 kg - Exam Abdomen: Soft, nontender, nondistended Assessment/Plan (1) Morbid obesity with BMI of 40.0-44.9, adult Narrative/Plan: Patient overall doing fairly well. Continue exercise and dietary regimen. Continue antiacids. Advise oral iron supplementation. Check 3 year labs in Jan. Plan: Date: 12/13/22 Initial Weight: 110.677 kg Initial BMI: 44.6 Current Weight: 79.379 kg Current BMI: 32.0 Type of Surgery: Total Volume in Band: Previous Volume: Volume Removed: Volume Added: Band Size:
== END ==
LOC: BARWHC3 13:06
PROVIDERS: ATTEND Surgery
DX: E66.01 Morbid (severe) obesity due to excess calories (principal); Z68.32 Body mass index [BMI] 32.0-32.9, adult; Z71.3 Dietary counseling and surveillance; Z91.041 Radiographic dye allergy status; Z91.030 Bee allergy status; Z88.8 Allergy status to other drugs, medicaments and biological substances; Z91.048 Other nonmedicinal substance allergy status
CPT/HCPCS: 99211

== ENCOUNTER → 2023-01-21 | Outpatient (CLI) | payer MEDICARE, OTHER ==
[2023-01-21 13:59] LABS: Basophils # (A) 0.02 X 10*3/uL (0.00-0.10); Basophils % (A) 0.3 %; Eosinophils # (A) 0.17 X 10*3/uL (0.04-0.35); Eosinophils % (A) 2.6 %; HCT 39.5 % (37.2-46.3); HGB 12.5 g/dL (12.0-15.0); Lymphocytes # (A) 1.91 X 10*3/uL (0.90-5.00); Lymphocytes % (A) 28.8 %; MCH 29.3 pg (27.0-32.0); MCHC 31.6 g/dL (32.0-37.0); MCV 92.7 FL (80.0-97.0); Mean Platelet Volume 12.2 FL (9.5-12.2); Monocytes # (A) 0.42 X 10*3/uL (0.20-1.00); Monocytes % (A) 6.3 %; NRBC Per 100 WBC 0 X 10*3/uL (0.00-0.01); Neutrophils # (A) 4.09 X 10*3/uL (1.80-7.70); Neutrophils % (A) 61.7 %; Platelet Count 180 X 10*3/uL (140-440); RBC 4.26 X 10*6/uL (4.10-5.20); RDW 12.5 % (11.5-14.5); WBC 6.63 X 10*3/uL (4.50-10.00)
[2023-01-21 14:20] LABS: ALT 16 U/L (8-44); AST 16 U/L (13-35); Albumin 4.2 g/dL (3.8-4.9); Albumin/Globulin Ratio 1.75 Ratio (1.60-3.17); Alkaline Phosphatase 77 U/L (41-126); BUN/Creat Ratio 28.86 Ratio (12.00-20.00); Blood Urea Nitrogen 20.2 mg/dL (9.0-27.0); C Reactive Protein <0.30 mg/dL (0.00-0.80); Calcium 9.6 mg/dL (8.7-10.3); Carbon Dioxide 25.8 mmol/L (21.6-31.8); Chloride 104 mmol/L (96-109); Chol/HDL Ratio 2.31 Ratio; Creatine Kinase 60 U/L (26-186); Ferritin 21.9 ng/mL (10.0-291.0); Globulin 2.4 g/dL (1.6-3.3); Glucose 125 mg/dL (70-110); LDL Cholesterol,Calculated 48.9 mg/dL (0.0-131.0); Potassium 4.4 mmol/L (3.5-5.5); Rheumatoid Factor, Qnt <15 IU/mL (0-15); Sodium 142 mmol/L (135-145); Total Bilirubin 0.4 mg/dL (0.3-1.2); Total Protein 6.6 g/dL (6.2-8.2)
[2023-01-21 14:43] LABS: Erythrocyte Sedimentation Rate 8 mm/Hr (0-30)
[2023-01-22 16:48] LABS: % Iron Saturation 24.33 (12.00-45.00); Iron 91 UG/DL (50-170); Total Iron Binding Capacity 374 UG/DL (228-460)
== END | disposition home or self-care (01) ==
LOC: LABWHC1 09:06
PROVIDERS: ATTEND Family Medicine
DX: I10 Essential (primary) hypertension (principal); E11.65 Type 2 diabetes mellitus with hyperglycemia; E66.01 Morbid (severe) obesity due to excess calories; E78.5 Hyperlipidemia, unspecified; D50.9 Iron deficiency anemia, unspecified; M19.90 Unspecified osteoarthritis, unspecified site; K90.89 Other intestinal malabsorption; E55.9 Vitamin D deficiency, unspecified
CPT/HCPCS: 36415; 80053; 80061; 82550; 82607; 82728; 82746; 83540; 83550; 84439; 84443; 85025; 85652; 86038; 86140; 86431

== ENCOUNTER 2023-04-21 11:57 | Inpatient (IN) | payer MEDICARE, OTHER ==
--- NOTE | 2023-04-21 12:26 | ED ---
General Adult HPI - General Chief complaint: Syncope Stated complaint: Abn Labs, Critical low Hemo Time Seen by Provider: 04/21/23 12:11 Source: patient, RN notes reviewed Mode of arrival: ambulatory Limitations: no limitations - History of Present Illness Initial comments: Patient is a 62-year-old female present to the emergency department with concern s for low hemoglobin. Patient states she was having routine labs done for shoulder surgery. Patient states she was called back stating her hemoglobin was low. Patient admits to not feeling well for the past few days. Patient does have lightheadedness and exertional dyspnea. Patient also has fatigue. Patient believes her stools have been dark. - Related Data Home Medications Medication Instructions Recorded Confirmed Atorvastatin [Lipitor] 80 mg PO HS 08/16/19 04/21/23 Dapagliflozin Propanediol [Farxiga] 10 mg PO DAILY 03/17/21 04/21/23 lisinopriL [Zestril] 5 mg PO DAILY 06/30/22 04/21/23 Aspirin 81 mg PO DAILY 10/04/22 04/21/23 Semaglutide [Ozempic] 0.5 mg SQ FR 04/21/23 04/21/23 Previous Rx's Medication Instructions Recorded Omeprazole [PriLOSEC] 40 mg PO DAILY #30 capsule. 01/15/20 Allergies Allergy/AdvReac Type Severity Reaction Status Date / Time losartan potassium Allergy Severe Dyspnea, Verified 04/21/23 13:38 [From Cozaar] Heart palpitations bee venom protein (honey bee) Allergy Anaphylaxis Verified 04/21/23 13:38 Iodinated Contrast Media AdvReac Unknown ELEVATED Verified 04/21/23 13:38 [Iodinated Contrast Media - BP AND IV Dye] PULSE MARQUES SHAMPOO Allergy Swelling Uncoded 04/21/23 13:38 OF FACE IV CONTRAST DYE AdvReac Unknown Elevated Uncoded 04/21/23 13:38 Blood pressure & pulse.palpitations Review of Systems ROS Statement: Those systems with pertinent positive or pertinent negative responses have been documented in the HPI. ROS Other: All systems not noted in ROS Statement are negative. Constitutional: Denies: fever Eyes: Denies: eye pain ENT: Denies: ear pain Cardiovascular: Reports: dyspnea on exertion Endocrine: Reports: fatigue Gastrointestinal: Reports: as per HPI. Denies: abdominal pain Past Medical History Past Medical History: Diabetes Mellitus, GERD/Reflux, Hyperlipidemia, Hypertension, Osteoarthritis (OA), Syncope Additional Past Medical History / Comment(s): HX OF BOILS-groin, abdominal pain, tinnitus left ear, syncopal episodes since 2022 Also anemic low hgb and iron History of Any Multi-Drug Resistant Organisms: None Reported Past Surgical History: Bariatric Surgery, Section, Orthopedic Surgery, Tubal Ligation Additional Past Surgical History / Comment(s): SHAMAR EYE VITRECTOMY, CERVICAL NECK FUSION, RT ROTATOR CUFF, RT CARPAL TUNNEL RELEASE.EGD X2, COLONOSCOPY, right t humb reattached after injury, sleeve gastrectomy 01-13-20. ingrown toenail removed 2020. I&D cyst on abdomen, rt cataract surgery, laser eye surgery. april 2022 gall stone removed Past Anesthesia/Blood Transfusion Reactions: No Reported Reaction Past Psychological History: No Psychological Hx Reported Smoking Status: Never smoker Past Alcohol Use History: None Reported Past Drug Use History: None Reported - Past Family History Sister(s) Family Medical History: Cancer Additional Family Medical History / Comment(s): bone brain lung General Exam Limitations: no limitations General appearance: alert, in no apparent distress Head exam: Present: normocephalic Eye exam: Present: other (Pale conjunctiva) ENT exam: Present: normal oropharynx Neck exam: Present: normal inspection Respiratory exam: Present: normal lung sounds bilaterally Cardiovascular Exam: Present: regular rate, normal rhythm, systolic murmur (Patient states this is normal for her) GI/Abdominal exam: Present: soft. Absent: tenderness Rectal exam: Present: other (Evaluation limited by patient resistance with her hand. Only able to advance finger approximately 1 cm. Limited stool, no gross blood or black stool) Extremities exam: Present: normal inspection Neurological exam: Present: alert Psychiatric exam: Present: normal affect, normal mood Skin exam: Present: normal color Course Vital Signs 04/21/23 04/21/23 12:05 13:08 Temperature 98.3 F Pulse Rate 104 H 93 Respiratory 20 16 Rate Blood Pressure 126/67 109/71 O2 Sat by Pulse 100 95 Oximetry Medical Decision Making - Medical Decision Making Was pt. sent in by a medical professional or institution (, PA, AIRWAY TRAFFIC CONTROLLER, urgent care, hospital, or chcf...) When possible be specific @ -Patient was sent from [facility] Did you speak to anyone other than the patient for history (EMS, parent, family, police, friend...)? What history was obtained from this source @ -No Did you review nursing and triage notes (agree or disagree)? Why? @ -I reviewed and agree with nursing and triage notes Were old charts reviewed (outside hosp., previous admission, EMS record, old EKG, old radiological studies, urgent care reports/EKG's, chcf records)? Report findings @ -Labs reviewed from [facility] Differential Diagnosis (chest pain, altered mental status, abdominal pain women, abdominal pain men, vaginal bleeding, weakness, fever, dyspnea, syncope, headache, dizziness, GI bleed, back pain, seizure, CVA, palpatations, mental health, musculoskeletal)? @ -Differential Dyspnea: Coronary syndrome, arrhythmia, tamponade, asthma, COPD, pulmonary embolism, pneumonia, pneumothorax, pulmonary effusion, anaphylaxis, diabetic ketoacidosis, flailed chest, pulmonary contusion, diaphragmatic rupture, anemia, neuromuscular, this is not meant to be an all-inclusive list. EKG interpreted by me (3pts min.). @ -As above X-rays interpreted by me (1pt min.). @ -Chest x-ray shows no acute process CT interpreted by me (1pt min.). @ -None done U/S interpreted by me (1pt. min.). @ -None done What testing was considered but not performed or refused? (CT, X-rays, U/S, labs)? Why? @ -None What meds were considered but not given or refused? Why? @ -None Did you discuss the management of the patient with other professionals (professionals i.e. , PA, AIRWAY TRAFFIC CONTROLLER, lab, RT, psych nurse, licensed social worker, radio talk show host, teacher, communications officer, caseworker intake)? Give summary @ -Case discussed with Dr. Grier who is familiar with this patient. He recommends discussing with medicine and patient could be admitted to them. He feels he likely would not do another scope as patient just had 1 several months back. He states he could be consulted if needed. Case also discussed with Dr. Jackson who will admit covering Dr. Cortez. She will arrange likely iron leyva sfusion. Was smoking cessation discussed for >3mins.? @ -No Was critical care preformed (if so, how long)? @ -No Were there social determinants of health that impacted care today? How? (Homelessness, low income, unemployed, alcoholism, drug addiction, transportation, low edu. Level, literacy, decrease access to med. care, fpc, rehab)? @ -No Was there de-escalation of care discussed even if they declined (Discuss DNR or withdrawal of care, Hospice)? DNR status @ -No What co-morbidities impacted this encounter? (DM, HTN, Smoking, COPD, CAD, Cancer, CVA, ARF, Chemo, Hep., AIDS, mental health diagnosis, sleep apnea, morbid obesity)? @ -None Was patient admitted / discharged? Hospital course, mention meds given and route, prescriptions, significant lab abnormalities, going to OR and other pertinent info. @ -Patient reevaluated and updated. Patient will be admitted. Admission orders written. Undiagnosed new problem with uncertain prognosis? @ -No Drug Therapy requiring intensive monitoring for toxicity (Heparin, Nitro, Insulin, Cardizem)? @ -No Were any procedures done? @ -No Diagnosis/symptom? @ -Symptomatic anemia Acute, or Chronic, or Acute on Chronic? @ -Acute Uncomplicated (without systemic symptoms) or Complicated (systemic symptoms)? @ -Default Side effects of treatment? @ -No Exacerbation, Progression, or Severe Exacerbation? @ -No Poses a threat to life or bodily function? How? (Chest pain, [place], [place], pneumonia, PE, COPD, DKA, ARF, appy, cholecystitis, CVA, Diverticulitis, Homicidal, Suicidal, threat to staff... and all critical care pts) @ -No - Lab Data Result diagrams: 04/21/23 12:31 04/21/23 12:31 Lab Results 04/21/23 04/21/23 04/21/23 Range/Units 12:27 12:31 12:31 WBC 11.1 H (3.8-10.6) k/uL RBC 2.68 L (3.80-5.40) m/uL Hgb 8.0 L (11.4-16.0) gm/dL Hct 24.2 L (34.0-46.0) % MCV 90.4 (80.0-100.0) fL MCH 29.8 (25.0-35.0) pg MCHC 32.9 (31.0-37.0) g/dL RDW 16.4 H (11.5-15.5) % Plt Count 235 (150-450) k/uL MPV 8.9 Neutrophils % 74 % Lymphocytes % 17 % Monocytes % 4 % Eosinophils % 4 % Basophils % 0 % Neutrophils # 8.2 H (1.3-7.7) k/uL Lymphocytes # 1.9 (1.0-4.8) k/uL Monocytes # 0.4 (0-1.0) k/uL Eosinophils # 0.4 (0-0.7) k/uL Basophils # 0.0 (0-0.2) k/uL Hypochromasia Slight Anisocytosis Slight PT (10.0-12.5) sec INR (<1.2) APTT (22.0-30.0) sec Sodium (137-145) mmol/L Potassium (3.5-5.1) mmol/L Chloride (98-107) mmol/L Carbon Dioxide (22-30) mmol/L Anion Gap mmol/L BUN (7-17) mg/dL Creatinine (0.52-1.04) mg/dL Est GFR (CKD-EPI)AfAm (>60 ml/min/1.73 sqM) Est GFR (CKD-EPI)NonAf (>60 ml/min/1.73 sqM) Glucose (74-99) mg/dL Plasma Lactic Acid Damián (0.7-2.0) mmol/L Calcium (8.4-10.2) mg/dL Magnesium (1.6-2.3) mg/dL Total Bilirubin (0.2-1.3) mg/dL AST (14-36) U/L ALT (4-34) U/L Alkaline Phosphatase (38-126) U/L Total Protein (6.3-8.2) g/dL Albumin (3.5-5.0) g/dL Stool Occult Blood Positive H (Negative) Blood Type B Negative Blood Type Recheck B Neg Bld Type Recheck Status No Antibody Screen NEGATIVE Spec Expiration Date 04/24/2023 - 232604/21/23 04/21/23 04/21/23 Range/Units 12:31 12:31 12:49 WBC (3.8-10.6) k/uL RBC (3.80-5.40) m/uL Hgb (11.4-16.0) gm/dL Hct (34.0-46.0) % MCV (80.0-100.0) fL MCH (25.0-35.0) pg MCHC (31.0-37.0) g/dL RDW (11.5-15.5) % Plt Count (150-450) k/uL MPV Neutrophils % % Lymphocytes % % Monocytes % % Eosinophils % % Basophils % % Neutrophils # (1.3-7.7) k/uL Lymphocytes # (1.0-4.8) k/uL Monocytes # (0-1.0) k/uL Eosinophils # (0-0.7) k/uL Basophils # (0-0.2) k/uL Hypochromasia Anisocytosis PT 10.7 (10.0-12.5) sec INR 1.0 (<1.2) APTT 21.1 L (22.0-30.0) sec Sodium 138 (137-145) mmol/L Potassium 3.8 (3.5-5.1) mmol/L Chloride 103 (98-107) mmol/L Carbon Dioxide 24 (22-30) mmol/L Anion Gap 11 mmol/L BUN 32 H (7-17) mg/dL Creatinine 0.63 (0.52-1.04) mg/dL Est GFR (CKD-EPI)AfAm >90 (>60 ml/min/1.73 sqM) Est GFR (CKD-EPI)NonAf >90 (>60 ml/min/1.73 sqM) Glucose 247 H (74-99) mg/dL Plasma Lactic Acid Damián 1.6 (0.7-2.0) mmol/L Calcium 9.9 (8.4-10.2) mg/dL Magnesium 1.5 L (1.6-2.3) mg/dL Total Bilirubin 0.4 (0.2-1.3) mg/dL AST 20 (14-36) U/L ALT 13 (4-34) U/L Alkaline Phosphatase 80 (38-126) U/L Total Protein 6.3 (6.3-8.2) g/dL Albumin 3.7 (3.5-5.0) g/dL Stool Occult Blood (Negative) Blood Type Blood Type Recheck Bld Type Recheck Status Antibody Screen Spec Expiration Date Disposition Clinical Impression: Symptomatic anemia Disposition: ADMITTED IP TO THIS HOSP Is patient prescribed a controlled substance at d/c from ED?: No Referrals: Karlos Cortez MD [Primary Care Provider] - 1-2 days Time of Disposition: 14:48
[2023-04-21 12:42] LABS: Anisocytosis Slight; Basophils % (A) 0 %; Eosinophils # (A) 0.4 k/uL (0-0.7); Eosinophils % (A) 4 %; HCT 24.2 % (34.0-46.0); Hypochromasia Slight; Lymphocytes # (A) 1.9 k/uL (1.0-4.8); Lymphocytes % (A) 17 %; MCH 29.8 pg (25.0-35.0); MCHC 32.9 g/dL (31.0-37.0); MCV 90.4 fL (80.0-100.0); Mean Platelet Volume 8.9; Monocytes # (A) 0.4 k/uL (0-1.0); Monocytes % (A) 4 %; Neutrophils # (A) 8.2 k/uL (1.3-7.7); Neutrophils % (A) 74 %; Platelet Count 235 k/uL (150-450); RBC 2.68 m/uL (3.80-5.40); RDW 16.4 % (11.5-15.5); WBC 11.1 k/uL (3.8-10.6)
[2023-04-21 12:55] LABS: ALT 13 U/L (4-34); AST 20 U/L (14-36); African American GFR (CKD) >90 (>60 ml/min/1.73 sqM); Albumin 3.7 g/dL (3.5-5.0); Alkaline Phosphatase 80 U/L (38-126); Anion Gap 11 mmol/L; Blood Urea Nitrogen 32 mg/dL (7-17); Calcium 9.9 mg/dL (8.4-10.2); Carbon Dioxide 24 mmol/L (22-30); Chloride 103 mmol/L (98-107); Glucose 247 mg/dL (74-99); Magnesium 1.5 mg/dL (1.6-2.3); Non-African American GFR(CKD) >90 (>60 ml/min/1.73 sqM); Potassium 3.8 mmol/L (3.5-5.1); Sodium 138 mmol/L (137-145); Total Bilirubin 0.4 mg/dL (0.2-1.3); Total Protein 6.3 g/dL (6.3-8.2)
[2023-04-21] MEDS: PANTOPRAZOLE 40 MG/10 ML VIAL IVP STA (13:00)
[2023-04-21 13:01] LABS: Partial Thromboplastin Time 21.1 sec (22.0-30.0); Prothrombin Time 10.7 sec (10.0-12.5)
--- NOTE | 2023-04-21 13:24 | XR ---
EXAMINATION TYPE: XR chest 2V DATE OF EXAM: 04/21/2023 COMPARISON: 03/17/2021. HISTORY: Weakness and dizziness. TECHNIQUE: Frontal and lateral views of the chest are obtained. FINDINGS: There is no focal air space opacity, pleural effusion, or pneumothorax seen. The cardiac silhouette size is within normal limits. The osseous structures are intact. IMPRESSION: No acute cardiopulmonary process.
[2023-04-21] MEDS ORDERED: NALOXONE 0.4 MG/ML 1 ML VIAL IV PRN (14:48)
[2023-04-21] MEDS ORDERED: DEXTROSE 50% SYRINGE 50 ML IVP PRN ×2 (16:44)
[2023-04-21] MEDS ORDERED: ONDANSETRON 4 MG/2 ML VIAL IVP PRN (16:45)
[2023-04-21] MEDS ORDERED: LACTULOSE 20 GM/30 ML CUP PO PRN (16:45)
[2023-04-21 17:00] LABS: Glucose,Whole Blood 148 mg/dL (70-110)
--- NOTE | 2023-04-21 17:23 | P.HPIM ---
History of Present Illness H&P Date: 04/21/23 Chief Complaint: dizziness Patient is a 62-year-old female with diabetes mellitus, GERD, hypertension, dyslipidemia, and history of syncopal episodes who presented to the emergency department due to concerns for low hemoglobin. On arrival to the emergency department she was slightly tachycardic with a pulse of 104. Laboratory analysis in the emergency department demonstrates a white blood cell count of 11.1, hemoglobin 8, platelets 235, BUN 32, magnesium 1.5. Fecal occult blood testing was negative. General surgery was consulted and felt that patient did n ot require repeat colonoscopy as she had both an EGD and a colonoscopy done in July 2022 which showed mild gastritis and mild diverticulosis. She was admitted for further monitoring. Reports that she has had iron deficiency anemia in the past requiring IV iron transfusions with Dr. Girard's office. He has not seen him in quite some time. She reports that she called the office and it was going to take 2 weeks for her to get it so she was worried. Patient seen and examined at bedside. She reports that she got pre-op labs done monday for a shoulder surgery. She then reports that on she started to have dizziness only with walking. She denies any associated chest pain or shortness of breath but states she feels like she could pass out. She reports overall fatigue. She did report some dark stools but states they are infrequent she is very constipated and has been taking multiple bouts of laxatives after starting on Ozempic. No other complaints currently. Vital signs reviewed General: nontoxic, no distress, appears at stated age Derm: warm, dry Eyes: EOMI, no lid lag, anicteric sclera, pupils equal round reactive to light ENT: Nose and ears atraumatic Cardiovascular: S1S2 reg with grade 4 murmur, no edema Lungs: clear to auscultation bilateral, no rhonchi, no rales, no wheeze, no accessory muscle use Abdominal: soft, nontender to palpation, no guarding Ext: no gross muscle atrophy, no contractures Neuro: CN II-XII grossly intact, No focal neuro deficits Psych: Alert, oriented, appropriate affect Assessment/Plan: Severe iron deficiency anemia in the setting of gleeve gastrectomy Dizziness - hx of Fe def in the past requiring IV iron with Dr. Juárez -Gluconate 125 mg IV piggyback today and tomorrow -Repeat CBC in a.m. -Will need to follow-up outpatient with oncology for further IV iron testing -Highly doubt significant source of GI bleed as patient has been having constipation and not diarrhea. She reports stools as dark but not tarry. -Patient with significant murmur, she states it has been there in the past. Check echocardiogram -Telemetry -Check orthostatic vitals Diabetes -Hold Ozempic -Continue Farxiga 10 mg daily -Sliding scale insulin GERD -PPI Hypertension Dyslipidemia -Lipitor 80 mg at night, lisinopril 5 mg daily Imaging: None Data Review: As per HPI The patient is placed in observation with an anticipated greater less 2 midnight stay for evaluation of Iron deficiency anemia . Anticipated discharge date: In a.m. Anticipated discharge place: Home This dictation was prepared using [employer] voice recognition software. Though every attempt is made to correct errors during dictation some may still exist. Past Medical History Past Medical History: Diabetes Mellitus, GERD/Reflux, Hyperlipidemia, Hyperten milagros, Osteoarthritis (OA), Syncope Additional Past Medical History / Comment(s): HX OF BOILS-groin, abdominal pain, tinnitus left ear, syncopal episodes since 2022 Also anemic low hgb and iron History of Any Multi-Drug Resistant Organisms: None Reported Past Surgical History: Bariatric Surgery, Section, Orthopedic Surgery, Tubal Ligation Additional Past Surgical History / Comment(s): SHAMAR EYE VITRECTOMY, CERVICAL NECK FUSION, RT ROTATOR CUFF, RT CARPAL TUNNEL RELEASE.EGD X2, COLONOSCOPY, right thumb reattached after injury, sleeve gastrectomy 01-13-20. ingrown toenail removed 2020. I&D cyst on abdomen, rt cataract surgery, laser eye surgery. april 2022 gall stone removed Past Anesthesia/Blood Transfusion Reactions: No Reported Reaction Past Psychological History: No Psychological Hx Reported Smoking Status: Never smoker Past Alcohol Use History: None Reported Past Drug Use History: None Reported - Past Family History Sister(s) Family Medical History: Cancer Additional Family Medical History / Comment(s): bone brain lung Medications and Allergies Home Medications Medication Instructions Recorded Confirmed Type Atorvastatin [Lipitor] 80 mg PO HS 08/16/19 04/21/23 History Omeprazole [PriLOSEC] 40 mg PO DAILY #30 capsule. 01/15/20 04/21/23 Rx Dapagliflozin Propanediol [Farxiga] 10 mg PO DAILY 03/17/21 04/21/23 History lisinopriL [Zestril] 5 mg PO DAILY 06/30/22 04/21/23 History Aspirin 81 mg PO DAILY 10/04/22 04/21/23 History Semaglutide [Ozempic] 0.5 mg SQ FR 04/21/23 04/21/23 History Allergies Allergy/AdvReac Type Severity Reaction Status Date / Time losartan potassium Allergy Severe Dyspnea, Verified 04/21/23 13:38 [From Cozaar] Heart palpitations bee venom protein (honey bee) Allergy Anaphylaxis Verified 04/21/23 13:38 Iodinated Contrast Media AdvReac Unknown ELEVATED Verified 04/21/23 13:38 [Iodinated Contrast Media - BP AND IV Dye] PULSE MARQUES SHAMPOO Allergy Swelling Uncoded 04/21/23 13:38 OF FACE IV CONTRAST DYE AdvReac Unknown Elevated Uncoded 04/21/23 13:38 Blood pressure & pulse.palpitations Physical Exam Osteopathic Statement: *. No significant issues noted on an osteopathic structural exam other than those noted in the History and Physical/Consult. Vitals: Vital Signs Temp Pulse Pulse Resp BP BP Pulse Ox 04/21/23 16:42 98.2 F 90 18 110/65 100 04/21/23 15:00 91 16 98/57 98 04/21/23 13:08 93 16 109/71 95 04/21/23 12:05 98.3 F 104 H 20 126/67 100 Intake and Output 04/21/23 04/21/23 04/21/23 06:59 14:59 22:59 Other: Weight 77.111 kg 77.111 kg Results CBC & Chem 7: 04/21/23 12:31 04/21/23 12:31 Labs: Abnormal Lab Results - Last 24 Hours (Table) 04/21/23 04/21/23 04/21/23 Range/Units 12:31 12:31 12:31 WBC 11.1 H (3.8-10.6) k/uL RBC 2.68 L (3.80-5.40) m/uL Hgb 8.0 L (11.4-16.0) gm/dL Hct 24.2 L (34.0-46.0) % RDW 16.4 H (11.5-15.5) % Neutrophils # 8.2 H (1.3-7.7) k/uL APTT 21.1 L (22.0-30.0) sec BUN (7-17) mg/dL Glucose (74-99) mg/dL POC Glucose (mg/dL) (70-110) mg/dL Magnesium (1.6-2.3) mg/dL Stool Occult Blood Positive H (Negative) 04/21/23 04/21/23 Range/Units 12:31 16:58 WBC (3.8-10.6) k/uL RBC (3.80-5.40) m/uL Hgb (11.4-16.0) gm/dL Hct (34.0-46.0) % RDW (11.5-15.5) % Neutrophils # (1.3-7.7) k/uL APTT (22.0-30.0) sec BUN 32 H (7-17) mg/dL Glucose 247 H (74-99) mg/dL POC Glucose (mg/dL) 148 H (70-110) mg/dL Magnesium 1.5 L (1.6-2.3) mg/dL Stool Occult Blood (Negative) Thrombosis Risk Factor Assmnt - Choose All That Apply Any of the Below Risk Factors Present?: Yes Each Factor Represents 1 point: Obesity (BMI >25) Other Risk Factors: Yes Each Risk Factor Represents 2 Points: Age 61-74 years Thrombosis Risk Factor Assessment Total Risk Factor Score: 3 Thrombosis Risk Factor Assessment Level: Moderate Risk
[2023-04-21] MEDS: INSULIN ASPART (NovoLOG) 100 UNIT/ML VIAL SQ SCH (17:54)
[2023-04-21] MEDS: ASPIRIN 81 MG PO SCH (17:58)
[2023-04-21] MEDS: SODIUM FERRIC GLUCONAT-SUCROSE 125 MG in SODIUM CHLORIDE 0.9% 100 ML IVPB SCH (17:58)
[2023-04-21] MEDS: ATORVASTATIN 80 MG TAB PO SCH (20:14)
[2023-04-21 20:36] LABS: Glucose,Whole Blood 250 mg/dL (70-110)
[2023-04-21] MEDS: MELATONIN 3 MG TABLET PO PRN (23:34)
[2023-04-22] MEDS: SODIUM CHLORIDE 0.9% 1,000 ML IV ONE (01:21)
[2023-04-22 01:53] LABS: Anisocytosis Slight; Hypochromasia Slight; MCH 29.7 pg (25.0-35.0); MCHC 32.7 g/dL (31.0-37.0); Mean Platelet Volume 8.6; Platelet Count 181 k/uL (150-450); Poikilocytosis Slight; RBC 2.03 m/uL (3.80-5.40); RDW 16.6 % (11.5-15.5); WBC 6.2 k/uL (3.8-10.6)
[2023-04-22 01:56] LABS: HCT 18.5 % (34.0-46.0)
[2023-04-22] MEDS: SODIUM CHLORIDE 0.9% 1,000 ML IV SCH (03:05)
[2023-04-22] MEDS: PANTOPRAZOLE 40 MG/10 ML VIAL IVP STA (04:06)
[2023-04-22 05:45] LABS: Glucose,Whole Blood 171 mg/dL (70-110)
[2023-04-22] MEDS: DAPAGLIFLOZIN PROPANEDIOL 10 MG TABLET PO SCH (08:50)
[2023-04-22] MEDS: PANTOPRAZOLE 40 MG TABLET PO SCH (08:52)
[2023-04-22] MEDS: lisinopriL 5 MG TAB PO SCH (08:53)
[2023-04-22] MEDS ORDERED: PANTOPRAZOLE 40 MG/10 ML VIAL IV SCH (09:00)
[2023-04-22 11:34] LABS: Glucose,Whole Blood 173 mg/dL (70-110)
--- NOTE | 2023-04-22 11:40 | P.GSCN ---
History of Present Illness Consult date: 04/22/23 Reason for Consult: Anemia with melena. History of present illness: Patient has a history of anemia. She noted a syncopal episode after recent blood draw the following day. Patient reported dark stools and therefore reported to the emergency department. Overnight patient's hemoglobin dropped from 8-6. No active signs of bleeding. Review of Systems Review of systems as per the history and physical. Patient reports melena no hematemesis no abdominal pain. Patient does have symptoms of anemia. All systems: negative - Constitutional Reports as per HPI - EENT Eyes: bilateral as per HPI Ears, nose, mouth and throat: Denies dysphagia - Cardiovascular Denies chest pain, Denies shortness of breath - Respiratory Denies cough, Denies 7 - Gastrointestinal Reports as per HPI, Reports change in bowel habits, Reports hematochezia, Reports melena - Genitourinary Genitourinary: Denies dysuria, Denies hematuria - Musculoskeletal Denies as per HPI, Denies arm numbness/tingling, Denies atrophy, Denies fractures, Denies frequent falls, Denies gait dysfunction, Denies hot joints, Denies leg numbness/tingling, Denies limitation of motion, Denies loss of he ight, Denies low back pain, Denies morning stiffness, Denies muscle cramps, Denies muscle weakness, Denies myalgias, Denies neck pain, Denies neck stiffness, Denies prior amputations, Denies redness of joints, Denies shooting arm pain, Denies shooting leg pain - Integumentary Denies rash, Denies unusual bruising - Neurological Denies headaches, Denies syncope - Psychiatric Reports as per HPI - Endocrine Reports as per HPI - Hematologic/Lymphatic Reports as per HPI Past Medical History Past Medical History: Diabetes Mellitus, GERD/Reflux, Hyperlipidemia, Hypertension, Osteoarthritis (OA), Syncope Additional Past Medical History / Comment(s): HX OF BOILS-groin, abdominal pain, tinnitus left ear, syncopal episodes since 2022 Also anemic low hgb and iron History of Any Multi-Drug Resistant Organisms: None Reported Past Surgical History: Bariatric Surgery, Section, Orthopedic Surgery, Tubal Ligation Additional Past Surgical History / Comment(s): SHAMAR EYE VITRECTOMY, CERVICAL NECK FUSION, RT ROTATOR CUFF, RT CARPAL TUNNEL RELEASE.EGD X2, COLONOSCOPY, right thumb reattached after injury, sleeve gastrectomy 01-13-20. ingrown toenail removed 2020. I&D cyst on abdomen, rt cataract surgery, laser eye surgery. april 2022 gall stone removed Past Anesthesia/Blood Transfusion Reactions: No Reported Reaction Past Psychological History: No Psychological Hx Reported Smoking Status: Never smoker Past Alcohol Use History: None Reported Past Drug Use History: None Reported - Past Family History Sister(s) Family Medical History: Cancer Additional Family Medical History / Comment(s): bone brain lung Medications and Allergies Home Medications Medication Instructions Recorded Confirmed Type Atorvastatin [Lipitor] 80 mg PO HS 08/16/19 04/21/23 History Omeprazole [PriLOSEC] 40 mg PO DAILY #30 capsule. 01/15/20 04/21/23 Rx Dapagliflozin Propanediol [Farxiga] 10 mg PO DAILY 03/17/21 04/21/23 History lisinopriL [Zestril] 5 mg PO DAILY 06/30/22 04/21/23 History Aspirin 81 mg PO DAILY 10/04/22 04/21/23 History Semaglutide [Ozempic] 0.5 mg SQ FR 04/21/23 04/21/23 History Allergies Allergy/AdvReac Type Severity Reaction Status Date / Time losartan potassium Allergy Severe Dyspnea, Verified 04/21/23 13:38 [From Cozaar] Heart palpitations bee venom protein (honey bee) Allergy Anaphylaxis Verified 04/21/23 13:38 Iodinated Contrast Media AdvReac Unknown ELEVATED Verified 04/21/23 13:38 [Iodinated Contrast Media - BP AND IV Dye] PULSE MARQUES SHAMPOO Allergy Swelling Uncoded 04/21/23 13:38 OF FACE IV CONTRAST DYE AdvReac Unknown Elevated Uncoded 04/21/23 13:38 Blood pressure & pulse.palpitations Surgical - Exam Vital Signs Temp Pulse Resp BP Pulse Ox 98.3 F 104 H 20 126/67 100 04/21/23 12:05 04/21/23 12:05 04/21/23 12:05 04/21/23 12:05 04/21/23 12:05 Patient Seen Date: 04/22/23 Patient Seen Time: 09:00 - General well developed, other (Vitals stable does not appear pale.) - Eyes normal ocular movement, no icteric - ENT no hearing loss, no congestion - Respiratory normal respiratory effort, clear to auscultation - Cardiovascular Rhythm: regular - Abdomen Abdomen: soft, non tender, no guarding, no rigid, no rebound - Neurologic no disoriented, no combative - Psychiatric oriented to time, oriented to person, oriented to place, speech is normal, memory intact Results - Labs 04/22/23 01:39 04/21/23 12:31 Abnormal Lab Results - Last 24 Hours (Table) 04/21/23 04/21/23 04/21/23 Range/Units 12:27 12:31 12:31 WBC 11.1 H (3.8-10.6) k/uL RBC 2.68 L (3.80-5.40) m/uL Hgb 8.0 L (11.4-16.0) gm/dL Hct 24.2 L (34.0-46.0) % RDW 16.4 H (11.5-15.5) % Neutrophils # 8.2 H (1.3-7.7) k/uL APTT (22.0-30.0) sec BUN (7-17) mg/dL Glucose (74-99) mg/dL POC Glucose (mg/dL) (70-110) mg/dL Magnesium (1.6-2.3) mg/dL Stool Occult Blood Positive H (Negative) Crossmatch See Detail 04/21/23 04/21/23 04/21/23 Range/Units 12:31 12:31 16:58 WBC (3.8-10.6) k/uL RBC (3.80-5.40) m/uL Hgb (11.4-16.0) gm/dL Hct (34.0-46.0) % RDW (11.5-15.5) % Neutrophils # (1.3-7.7) k/uL APTT 21.1 L (22.0-30.0) sec BUN 32 H (7-17) mg/dL Glucose 247 H (74-99) mg/dL POC Glucose (mg/dL) 148 H (70-110) mg/dL Magnesium 1.5 L (1.6-2.3) mg/dL Stool Occult Blood (Negative) Crossmatch 03/15/24 03/16/24 03/16/24 Range/Units 20:34 01:39 05:43 WBC (3.8-10.6) k/uL RBC 2.03 L (3.80-5.40) m/uL Hgb 6.0 L* D (11.4-16.0) gm/dL Hct 18.5 L* (34.0-46.0) % RDW 16.6 H (11.5-15.5) % Neutrophils # (1.3-7.7) k/uL APTT (22.0-30.0) sec BUN (7-17) mg/dL Glucose (74-99) mg/dL POC Glucose (mg/dL) 250 H 171 H (70-110) mg/dL Magnesium (1.6-2.3) mg/dL Stool Occult Blood (Negative) Crossmatch Diabetes panel 04/21/23 Range/Units 12:31 Sodium 138 (137-145) mmol/L Potassium 3.8 (3.5-5.1) mmol/L Chloride 103 (98-107) mmol/L Carbon Dioxide 24 (22-30) mmol/L BUN 32 H (7-17) mg/dL Creatinine 0.63 (0.52-1.04) mg/dL Glucose 247 H (74-99) mg/dL Calcium 9.9 (8.4-10.2) mg/dL AST 20 (14-36) U/L ALT 13 (4-34) U/L Alkaline Phosphatase 80 (38-126) U/L Total Protein 6.3 (6.3-8.2) g/dL Albumin 3.7 (3.5-5.0) g/dL Calcium panel 04/21/23 Range/Units 12:31 Calcium 9.9 (8.4-10.2) mg/dL Albumin 3.7 (3.5-5.0) g/dL Pituitary panel 04/21/23 Range/Units 12:31 Sodium 138 (137-145) mmol/L Potassium 3.8 (3.5-5.1) mmol/L Chloride 103 (98-107) mmol/L Carbon Dioxide 24 (22-30) mmol/L BUN 32 H (7-17) mg/dL Creatinine 0.63 (0.52-1.04) mg/dL Glucose 247 H (74-99) mg/dL Calcium 9.9 (8.4-10.2) mg/dL Adrenal panel 04/21/23 Range/Units 12:31 Sodium 138 (137-145) mmol/L Potassium 3.8 (3.5-5.1) mmol/L Chloride 103 (98-107) mmol/L Carbon Dioxide 24 (22-30) mmol/L BUN 32 H (7-17) mg/dL Creatinine 0.63 (0.52-1.04) mg/dL Glucose 247 H (74-99) mg/dL Calcium 9.9 (8.4-10.2) mg/dL Total Bilirubin 0.4 (0.2-1.3) mg/dL AST 20 (14-36) U/L ALT 13 (4-34) U/L Alkaline Phosphatase 80 (38-126) U/L Total Protein 6.3 (6.3-8.2) g/dL Albumin 3.7 (3.5-5.0) g/dL Assessment and Plan Assessment: Anemia hemoglobin 6. History of gastric sleeve. Melena reported. (1) Symptomatic anemia Current Visit: Yes Status: Acute Code(s): D64.9 - ANEMIA, UNSPECIFIED SNOMED Code(s): 166836596 Plan: Transfuse with packed red blood cells as well as iron. Upper endoscopy Time with Patient: Greater than 30
[2023-04-22] MEDS ORDERED: PROPOFOL 10 MG/ML 20 ML VIAL IV ONE (11:45)
[2023-04-22] MEDS ORDERED: LIDOCAINE 1% INJ 10MG/ML (20 ML MDV) ONE (11:45)
[2023-04-22] MEDS: LACTATED RINGERS 1,000 ML IV ONE ×2 (11:57)
--- NOTE | 2023-04-22 12:33 | P.PN ---
Subjective Progress Note Date: 04/22/23 Hospital Course: 62-year-old female with diabetes mellitus, GERD, hypertension, dyslipidemia, and history of syncopal episodes who presented to the emergency department due to concerns for low hemoglobin. Vital signs have been within normal limits. Hemoglobin on presentation was 8, down trended to 6. Patient did have melena. General surgery consulted. Received 2 units of PRBCs. EGD pending. Subjective: Seen and examined at bedside. No acute events overnight. Does have melena. Denies any other active bleeding. Continues to have lightheadedness. Pertinent positives and negatives as discussed above, a complete review of systems was performed and all other systems are negative. Vitals Signs Reviewed. General: Nontoxic, no distress, appears at stated age Derm: Warm, dry Head: Atraumatic, normocephalic, symmetric Eyes: EOMI, no lid lag, anicteric sclera Mouth: No lip lesion, mucus membranes moist Cardiovascular: S1S2 reg, systolic murmur Lungs: CTA bilateral, no rhonchi, no rales, no accessory muscle use Abdominal: Soft, nontender to palpation, no guarding, no appreciable or ganomegaly Ext: No gross muscle atrophy, no edema, no contractures Neuro: CN II-XI grossly intact, no focal neuro deficits Psych: Alert, oriented, appropriate affect Data Reviewed Today: Pertinent Labs: Hemoglobin 6, platelet 181, blood sugars range between 1 71-2 50 Imaging:, No new imaging Assessment and Plan: Active: Acute on chronic iron deficiency anemia Acute GI bleed Lightheadedness Surgery note reviewed, pending EGD If no cause identified, should consider capsule endoscopy Hold aspirin 40 mg IV pantoprazole twice daily ordered Continue IV iron infusion 125 mg daily Does have significant systolic monitor, echocardiogram pending Diabetes -Hold Ozempic -Continue Farxiga 10 mg daily -Sliding scale insulin, monitor for hypoglycemia Chronic: GERD Hypertension Dyslipidemia DVT ppx: SCDs Code status: Full code Anticipated discharge place: Pending clinical course Anticipated discharge time: Pending clinical course In light of GI bleed, acute blood loss anemia, patient will be switched to inpatient status. Objective - Vital Signs Vital signs: Vital Signs Temp 97.7 F 04/22/23 09:28 Pulse 83 04/22/23 09:28 Resp 18 04/22/23 09:28 BP 131/79 04/22/23 09:28 Pulse Ox 99 04/22/23 07:58 FiO2 Intake & Output 04/21/23 04/22/23 04/22/23 18:59 06:59 18:59 Intake Total 310 510 Balance 310 510 Weight 77.111 kg Intake: IV 200 Blood Product 310 310 Rc As-1 Unit 310 [id number] Rc As-1 Unit 0 310 [id number] Other: Voiding Method Toilet # Voids 2 1 - Labs CBC & Chem 7: 04/22/23 01:39 04/21/23 12:31 Labs: Abnormal Lab Results - Last 24 Hours (Table) 04/21/23 04/21/23 04/21/23 Range/Units 12:27 12:31 12:31 WBC 11.1 H (3.8-10.6) k/uL RBC 2.68 L (3.80-5.40) m/uL Hgb 8.0 L (11.4-16.0) gm/dL Hct 24.2 L (34.0-46.0) % RDW 16.4 H (11.5-15.5) % Neutrophils # 8.2 H (1.3-7.7) k/uL APTT (22.0-30.0) sec BUN (7-17) mg/dL Glucose (74-99) mg/dL POC Glucose (mg/dL) (70-110) mg/dL Magnesium (1.6-2.3) mg/dL Stool Occult Blood Positive H (Negative) Crossmatch See Detail 04/21/23 04/21/23 04/21/23 Range/Units 12:31 12:31 16:58 WBC (3.8-10.6) k/uL RBC (3.80-5.40) m/uL Hgb (11.4-16.0) gm/dL Hct (34.0-46.0) % RDW (11.5-15.5) % Neutrophils # (1.3-7.7) k/uL APTT 21.1 L (22.0-30.0) sec BUN 32 H (7-17) mg/dL Glucose 247 H (74-99) mg/dL POC Glucose (mg/dL) 148 H (70-110) mg/dL Magnesium 1.5 L (1.6-2.3) mg/dL Stool Occult Blood (Negative) Crossmatch 04/21/23 04/22/23 04/22/23 Range/Units 20:34 01:39 05:43 WBC (3.8-10.6) k/uL RBC 2.03 L (3.80-5.40) m/uL Hgb 6.0 L* D (11.4-16.0) gm/dL Hct 18.5 L* (34.0-46.0) % RDW 16.6 H (11.5-15.5) % Neutrophils # (1.3-7.7) k/uL APTT (22.0-30.0) sec BUN (7-17) mg/dL Glucose (74-99) mg/dL POC Glucose (mg/dL) 250 H 171 H (70-110) mg/dL Magnesium (1.6-2.3) mg/dL Stool Occult Blood (Negative) Crossmatch 04/22/23 Range/Units 11:33 WBC (3.8-10.6) k/uL RBC (3.80-5.40) m/uL Hgb (11.4-16.0) gm/dL Hct (34.0-46.0) % RDW (11.5-15.5) % Neutrophils # (1.3-7.7) k/uL APTT (22.0-30.0) sec BUN (7-17) mg/dL Glucose (74-99) mg/dL POC Glucose (mg/dL) 173 H (70-110) mg/dL Magnesium (1.6-2.3) mg/dL Stool Occult Blood (Negative) Crossmatch
--- NOTE | 2023-04-22 14:53 | CA ---
Transthoracic Echo Report Name: Ree Last Age: 62 Gender: F : 1960 Exam Date: 04/22/2023 08:20 Exam Location: [facility] Ht (in): 62 Wt (lb): 170 Ordering Physician: Sydney Acosta DO Attending/Referring Phys: Lining Strap Closer Re Velasquez RDCS Procedure CPT: Indications: presyncope/dizziness Cardiac Hx: Technical Quality: Fair Contrast 1: Total Dose (mL): Contrast 2: Total Dose (mL): MEASUREMENTS (Male / Female) Normal Values 2D ECHO LV Diastolic Diameter PLAX 3.5 cm 4.2 - 5.9 / 3.9 - 5.3 cm LV Systolic Diameter PLAX 2.2 cm IVS Diastolic Thickness 1.0 cm 0.6 - 1.0 / 0.6 - 0.9 cm LVPW Diastolic Thickness 1.3 cm 0.6 - 1.0 / 0.6 - 0.9 cm LV Relative Wall Thickness 0.7 RV Internal Dim ED PLAX 3.3 cm LVOT Diameter 2.0 cm LA Volume 72.9 cm??? 18 - 58 / 22 - 52 cm??? LA Volume Index 39.1 cm???/m??? 16 - 28 cm???/m??? M-MODE Aortic Root Diameter MM 2.9 cm LA Systolic Diameter MM 4.4 cm LA Ao Ratio MM 1.5 AV Cusp Separation MM 0.8 cm DOPPLER AV Peak Velocity 295.1 cm/s AV Peak Gradient 34.8 mmHg AV Mean Velocity 216.8 cm/s AV Mean Gradient 20.9 mmHg AV Velocity Time Integral 70.1 cm AI Peak Velocity 453.9 cm/s AI Peak Gradient 82.4 mmHg AI Pressure Half Time 379.7 ms LVOT Peak Velocity 119.4 cm/s LVOT Peak Gradient 5.7 mmHg LVOT Velocity Time Integral 29.0 cm LVOT Stroke Volume 88.3 cm??? LVOT Stroke Volume Index 49.5 ml/m??? LVOT Cardiac Index 3690.0 cm???/min???m??? AV Area Cont Eq vti 1.3 cm??? AV Area Cont Eq pk 1.2 cm??? MV Peak Velocity 177.9 cm/s MV Peak Gradient 12.7 mmHg MV Mean Velocity 121.5 cm/s MV Mean Gradient 6.3 mmHg MV Velocity Time Integral 47.2 cm MV Area PHT 2.6 cm??? MR Peak Velocity 564.3 cm/s MR Peak Gradient 127.4 mmHg MR Flow Rate PISA 42.1 cm???/s Mitral E Point Velocity 141.4 cm/s Mitral A Point Velocity 172.7 cm/s Mitral E to A Ratio 0.8 MV Deceleration Time 290.0 ms MV E' Velocity 6.1 cm/s Mitral E to MV E' Ratio 23.3 TR Peak Velocity 287.6 cm/s TR Peak Gradient 33.1 mmHg Right Ventricular Systolic Press 37.8 mmHg FINDINGS Left Ventricle Moderately increased left ventricular wall thickness. Left ventricular cavity size normal. Normal left ventricular systolic function with no obvious regional wall motion abnormalities. Left ventricular ejection fraction is estimated at 55-60 %. Grade 2 diastolic dysfunction. Right Ventricle Normal right ventricular size and function. Mild pulmonary hypertension. Right Atrium Normal right atrial size. Left Atrium Moderately increased left atrial volume. Mildly increased left atrial area. Interatrial septal aneurysm. Mitral Valve Mitral annular calcification. Mitral valve thickened. Mild mitral stenosis. Auxt-vc-lahdpyma mitral regurgitation. Aortic Valve Moderate aortic stenosis with a peak gradient of 35 mmHg and a mean gradient of 21 mmHg. TIESHA by Vmax 1.04cm2. Mild aortic regurgitation. Moderately calcified aortic valve, cannot exclude bicuspid aortic valve with a raphe Tricuspid Valve Structurally normal tricuspid valve. Mild tricuspid regurgitation. Pulmonic Valve Structurally normal pulmonic valve. Trace pulmonic regurgitation. Pericardium No pericardial effusion. Aorta Normal size aortic root and proximal ascending aorta. CONCLUSIONS 1. Normal left ventricle size and systolic function 2. Gxig-wi-pgeoxzvy mitral regurgitation 3. Moderately calcified aortic valve, cannot exclude bicuspid aortic valve with moderate aortic stenosis and mild aortic regurgitation 4. Mild tricuspid regurgitation and mild pulmonary hypertension Previewed by: Dr. America Hernandez MD (Electronically Signed) Final Date: 22 April 2023 14:52
[2023-04-22 15:34] LABS: African American GFR (CKD) >90 (>60 ml/min/1.73 sqM); Anion Gap 4 mmol/L; Blood Urea Nitrogen 20 mg/dL (7-17); Calcium 8.7 mg/dL (8.4-10.2); Carbon Dioxide 26 mmol/L (22-30); Chloride 110 mmol/L (98-107); Glucose 149 mg/dL (74-99); Non-African American GFR(CKD) >90 (>60 ml/min/1.73 sqM); Potassium 4.3 mmol/L (3.5-5.1); Sodium 140 mmol/L (137-145)
[2023-04-22 16:00] LABS: Basophils % (A) 1 %; Eosinophils # (A) 0.2 k/uL (0-0.7); Eosinophils % (A) 2 %; HCT 27.8 % (34.0-46.0); Hypochromasia Slight; Lymphocytes # (A) 1.3 k/uL (1.0-4.8); Lymphocytes % (A) 20 %; MCHC 32.8 g/dL (31.0-37.0); MCV 91.5 fL (80.0-100.0); Mean Platelet Volume 8.7; Monocytes # (A) 0.3 k/uL (0-1.0); Monocytes % (A) 5 %; Neutrophils # (A) 4.6 k/uL (1.3-7.7); Neutrophils % (A) 71 %; Platelet Count 178 k/uL (150-450); Poikilocytosis Slight; RBC 3.04 m/uL (3.80-5.40); RDW 15.8 % (11.5-15.5); WBC 6.5 k/uL (3.8-10.6)
[2023-04-22 16:06] LABS: HGB 9.1 gm/dL (11.4-16.0)
[2023-04-22 16:40] LABS: Glucose,Whole Blood 147 mg/dL (70-110)
[2023-04-22] MEDS: PANTOPRAZOLE 40 MG/10 ML VIAL IVP SCH (20:55)
[2023-04-22 20:58] LABS: Glucose,Whole Blood 143 mg/dL (70-110)
[2023-04-23 05:56] LABS: Glucose,Whole Blood 147 mg/dL (70-110)
[2023-04-23 06:41] LABS: Anisocytosis Slight; Basophils % (A) 0 %; Eosinophils # (A) 0.2 k/uL (0-0.7); Eosinophils % (A) 3 %; HCT 26.4 % (34.0-46.0); HGB 8.5 gm/dL (11.4-16.0); Hypochromasia Slight; Lymphocytes # (A) 1.4 k/uL (1.0-4.8); Lymphocytes % (A) 22 %; MCH 29.4 pg (25.0-35.0); MCHC 32.1 g/dL (31.0-37.0); MCV 91.6 fL (80.0-100.0); Mean Platelet Volume 8.3; Monocytes # (A) 0.4 k/uL (0-1.0); Monocytes % (A) 6 %; Neutrophils # (A) 4.4 k/uL (1.3-7.7); Neutrophils % (A) 68 %; Platelet Count 183 k/uL (150-450); Poikilocytosis Slight; RBC 2.88 m/uL (3.80-5.40); WBC 6.5 k/uL (3.8-10.6)
[2023-04-23 06:46] LABS: African American GFR (CKD) >90 (>60 ml/min/1.73 sqM); Anion Gap 5 mmol/L; Blood Urea Nitrogen 15 mg/dL (7-17); Calcium 8.5 mg/dL (8.4-10.2); Carbon Dioxide 25 mmol/L (22-30); Chloride 111 mmol/L (98-107); Glucose 133 mg/dL (74-99); Non-African American GFR(CKD) >90 (>60 ml/min/1.73 sqM); Potassium 3.7 mmol/L (3.5-5.1); Sodium 141 mmol/L (137-145)
--- NOTE | 2023-04-23 10:31 | P.PN ---
Subjective Progress Note Date: 04/23/23 Patient feels well. She still has some feelings of fatigue and lightheadedness which he gets up. She has had no signs of GI bleed. Objective - Vital Signs Vital signs: Vital Signs Temp 98 F 04/23/23 07:04 Pulse 84 04/23/23 07:04 Resp 16 04/23/23 07:04 BP 130/62 04/23/23 07:04 Pulse Ox 97 04/23/23 07:04 FiO2 Intake & Output 04/22/23 04/23/23 04/23/23 18:59 06:59 18:59 Intake Total 510 Balance 510 Intake: IV 200 Blood Product 310 Rc As-1 Unit 310 [id number] Other: # Voids 1 3 - Gastrointestinal Gastrointestinal Comment(s): Soft nontender - Labs CBC & Chem 7: 04/23/23 06:01 04/23/23 06:01 Labs: Abnormal Lab Results - Last 24 Hours (Table) 04/22/23 04/22/23 04/22/23 Range/Units 11:33 14:12 14:12 RBC 3.04 L (3.80-5.40) m/uL Hgb 9.1 L D (11.4-16.0) gm/dL Hct 27.8 L (34.0-46.0) % RDW 15.8 H (11.5-15.5) % Chloride (98-107) mmol/L BUN (7-17) mg/dL Glucose (74-99) mg/dL POC Glucose (mg/dL) 173 H (70-110) mg/dL Hemoglobin A1c 7.0 H (<=6.0) % 04/22/23 04/22/23 04/22/23 Range/Units 14:12 16:38 20:44 RBC (3.80-5.40) m/uL Hgb (11.4-16.0) gm/dL Hct (34.0-46.0) % RDW (11.5-15.5) % Chloride 110 H (98-107) mmol/L BUN 20 H (7-17) mg/dL Glucose 149 H (74-99) mg/dL POC Glucose (mg/dL) 147 H 143 H (70-110) mg/dL Hemoglobin A1c (<=6.0) % 04/23/23 04/23/23 04/23/23 Range/Units 05:54 06:01 06:01 RBC 2.88 L (3.80-5.40) m/uL Hgb 8.5 L (11.4-16.0) gm/dL Hct 26.4 L (34.0-46.0) % RDW 16.0 H (11.5-15.5) % Chloride 111 H (98-107) mmol/L BUN (7-17) mg/dL Glucose 133 H (74-99) mg/dL POC Glucose (mg/dL) 147 H (70-110) mg/dL Hemoglobin A1c (<=6.0) % Assessment and Plan Assessment: Anemia. Patient will be evaluated Dr. Sebastian for possible colonoscopy tomorrow.
--- NOTE | 2023-04-23 11:52 | P.PN ---
Subjective Progress Note Date: 04/23/23 Hospital Course: 62-year-old female with diabetes mellitus, GERD, hypertension, dyslipidemia, and history of syncopal episodes who presented to the emergency department due to concerns for low hemoglobin. Vital signs have been within normal limits. Hemoglobin on presentation was 8, down trended to 6. Patient did have melena. General surgery consulted. Received 2 units of PRBCs. EGD did not show any active bleeding. Possible colonoscopy tomorrow. Subjective: Seen and examined at bedside. No acute events overnight. No further bowel movements. No other active bleeding. Still feeling fatigued and lightheaded. Pertinent positives and negatives as discussed above, a complete review of s ystems was performed and all other systems are negative. Vitals Signs Reviewed. General: Nontoxic, no distress, appears at stated age Derm: Warm, dry Head: Atraumatic, normocephalic, symmetric Eyes: EOMI, no lid lag, anicteric sclera Mouth: No lip lesion, mucus membranes moist Cardiovascular: S1S2 reg, systolic murmur Lungs: CTA bilateral, no rhonchi, no rales, no accessory muscle use Abdominal: Soft, nontender to palpation, no guarding, no appreciable organomegaly Ext: No gross muscle atrophy, no edema, no contractures Neuro: CN II-XI grossly intact, no focal neuro deficits Psych: Alert, oriented, appropriate affect Data Reviewed Today: Pertinent Labs: Hemoglobin 8.5, creatinine 0.57, blood sugars range between 1 33-1 47 Imaging:, Echocardiogram shows moderate calcified aortic valve, cannot exclude bicuspid aortic valve, with moderate aortic stenosis, mild aortic regurgitation, mild TR, mild pulmonary hypertension, normal LV size and systolic function, mild to moderate mitral regurgitation. Assessment and Plan: Active: Acute on chronic iron deficiency anemia Acute GI bleed Lightheadedness Moderate aortic stenosis Surgery note reviewed, possible colonoscopy tomorrow If no cause identified, should consider capsule endoscopy Hold aspirin 40 mg IV pantoprazole changed to daily Continue IV iron infusion 125 mg daily Outpatient cardiology follow-up for aortic stenosis Diabetes -Hold Ozempic -Continue Farxiga 10 mg daily -Sliding scale insulin, monitor for hypoglycemia Chronic: GERD Hypertension Dyslipidemia DVT ppx: SCDs Code status: Full code Anticipated discharge place: Pending clinical course Anticipated discharge time: Pending clinical course Objective - Vital Signs Vital signs: Vital Signs Temp 98 F 04/23/23 07:04 Pulse 84 04/23/23 07:04 Resp 16 04/23/23 07:04 BP 130/62 04/23/23 07:04 Pulse Ox 97 04/23/23 07:04 FiO2 Intake & Output 04/22/23 04/23/23 04/23/23 18:59 06:59 18:59 Intake Total 510 Balance 510 Intake: IV 200 Blood Product 310 Rc As-1 Unit 310 [id number] Other: # Voids 1 3 1 - Labs CBC & Chem 7: 04/23/23 06:01 04/23/23 06:01 Labs: Abnormal Lab Results - Last 24 Hours (Table) 04/22/23 04/22/23 04/22/23 Range/Units 14:12 14:12 14:12 RBC 3.04 L (3.80-5.40) m/uL Hgb 9.1 L D (11.4-16.0) gm/dL Hct 27.8 L (34.0-46.0) % RDW 15.8 H (11.5-15.5) % Chloride 110 H (98-107) mmol/L BUN 20 H (7-17) mg/dL Glucose 149 H (74-99) mg/dL POC Glucose (mg/dL) (70-110) mg/dL Hemoglobin A1c 7.0 H (<=6.0) % 04/22/23 04/22/23 04/23/23 Range/Units 16:38 20:44 05:54 RBC (3.80-5.40) m/uL Hgb (11.4-16.0) gm/dL Hct (34.0-46.0) % RDW (11.5-15.5) % Chloride (98-107) mmol/L BUN (7-17) mg/dL Glucose (74-99) mg/dL POC Glucose (mg/dL) 147 H 143 H 147 H (70-110) mg/dL Hemoglobin A1c (<=6.0) % 04/23/23 04/23/23 Range/Units 06:01 06:01 RBC 2.88 L (3.80-5.40) m/uL Hgb 8.5 L (11.4-16.0) gm/dL Hct 26.4 L (34.0-46.0) % RDW 16.0 H (11.5-15.5) % Chloride 111 H (98-107) mmol/L BUN (7-17) mg/dL Glucose 133 H (74-99) mg/dL POC Glucose (mg/dL) (70-110) mg/dL Hemoglobin A1c (<=6.0) %
[2023-04-23 11:57] LABS: Glucose,Whole Blood 137 mg/dL (70-110)
[2023-04-23 16:40] LABS: Glucose,Whole Blood 173 mg/dL (70-110)
[2023-04-23 20:27] LABS: Glucose,Whole Blood 238 mg/dL (70-110)
[2023-04-23] MEDS: INSULIN ASPART (NovoLOG) 100 UNIT/ML VIAL SQ SCH (20:47)
[2023-04-24 05:37] LABS: Glucose,Whole Blood 108 mg/dL (70-110)
[2023-04-24] MEDS: PANTOPRAZOLE 40 MG/10 ML VIAL IVP SCH (08:26)
[2023-04-24 09:27] LABS: Basophils # (A) 0.04 X 10*3/uL (0.00-0.10); Basophils % (A) 0.5 %; Eosinophils # (A) 0.28 X 10*3/uL (0.04-0.35); Eosinophils % (A) 3.5 %; HCT 27.9 % (37.2-46.3); HGB 8.5 g/dL (12.0-15.0); Lymphocytes # (A) 2.19 X 10*3/uL (0.90-5.00); Lymphocytes % (A) 27.7 %; MCH 28.9 pg (27.0-32.0); MCHC 30.5 g/dL (32.0-37.0); MCV 94.9 FL (80.0-97.0); Mean Platelet Volume 11.2 FL (9.5-12.2); Monocytes # (A) 0.52 X 10*3/uL (0.20-1.00); Monocytes % (A) 6.6 %; NRBC Per 100 WBC 0 X 10*3/uL (0.00-0.01); Neutrophils # (A) 4.86 X 10*3/uL (1.80-7.70); Neutrophils % (A) 61.3 %; Platelet Count 234 X 10*3/uL (140-440); RBC 2.94 X 10*6/uL (4.10-5.20); WBC 7.92 X 10*3/uL (4.50-10.00)
[2023-04-24 11:24] LABS: Glucose,Whole Blood 196 mg/dL (70-110)
--- NOTE | 2023-04-24 13:16 | P.PN ---
Subjective Progress Note Date: 04/24/23 Hospital Course: 62-year-old female with diabetes mellitus, GERD, hypertension, dyslipidemia, and history of syncopal episodes who presented to the emergency department due to concerns for low hemoglobin. Vital signs have been within normal limits. Hemoglobin on presentation was 8, down trended to 6. Patient did have melena. General surgery consulted. Received 2 units of PRBCs. EGD did not show any active bleeding. Hemoglobin stable. Surgery consulted GI. Echocardiogram shows moderate calcified aortic valve, cannot exclude bicuspid aortic valve, with moderate aortic stenosis, mild aortic regurgitation, mild TR, mild pulmonary hypertension, normal LV size and systolic function, mild to m oderate mitral regurgitation. Subjective: Seen and examined at bedside. No acute events overnight. Had another bowel movement which was dark, unsure if it was black stool. She denies any signific ant lightheadedness. Pertinent positives and negatives as discussed above, a complete review of sys tems was performed and all other systems are negative. Vitals Signs Reviewed. General: Nontoxic, no distress, appears at stated age Derm: Warm, dry Head: Atraumatic, normocephalic, symmetric Eyes: EOMI, no lid lag, anicteric sclera Mouth: No lip lesion, mucus membranes moist Cardiovascular: S1S2 reg, systolic murmur Lungs: CTA bilateral, no rhonchi, no rales, no accessory muscle use Abdominal: Soft, nontender to palpation, no guarding, no appreciable organomegaly Ext: No gross muscle atrophy, no edema, no contractures Neuro: CN II-XI grossly intact, no focal neuro deficits Psych: Alert, oriented, appropriate affect Data Reviewed Today: Pertinent Labs: Hemoglobin 8.5, blood sugars range between 10 8-2 38 Imaging: No new imaging Assessment and Plan: Active: Acute on chronic iron deficiency anemia Acute GI bleed Lightheadedness Moderate aortic stenosis Surgery consulted GI If no cause identified, should consider capsule endoscopy Hold aspirin 40 mg IV pantoprazole daily Continue IV iron infusion 125 mg daily Hemoglobin stable Outpatient cardiology follow-up for aortic stenosis Diabetes -Hold Ozempic -Continue Farxiga 10 mg daily -Sliding scale insulin, monitor for hypoglycemia Chronic: GERD Hypertension Dyslipidemia DVT ppx: SCDs Code status: Full code Anticipated discharge place: Pending clinical course Anticipated discharge time: Pending clinical course Objective - Vital Signs Vital signs: Vital Signs Temp 97.9 F 04/24/23 07:16 Pulse 88 04/24/23 07:16 Resp 18 04/24/23 07:16 BP 120/56 04/24/23 07:16 Pulse Ox 99 04/24/23 07:16 FiO2 Intake & Output 04/23/23 04/24/23 04/24/23 18:59 06:59 18:59 Intake Total 1520 Balance 1520 Intake: IV 920 Invasive Line 3 20 Sodium Chloride 0.9% 1, 900 000 ml @ 75 mls/hr IV . [id number] [facility] Rx#:[id number] Oral 600 Other: Voiding Method Toilet # Voids 2 2 # Bowel Movements 0 - Labs CBC & Chem 7: 04/24/23 05:28 04/23/23 06:01 Labs: Abnormal Lab Results - Last 24 Hours (Table) 04/23/23 04/23/23 04/24/23 Range/Units 16:39 20:20 05:28 RBC 2.94 L (4.10-5.20) X 10*6/uL Hgb 8.5 L (12.0-15.0) g/dL Hct 27.9 L (37.2-46.3) % MCHC 30.5 L (32.0-37.0) g/dL RDW 16.0 H (11.5-14.5) % POC Glucose (mg/dL) 173 H 238 H (70-110) mg/dL 04/24/23 Range/Units 11:22 RBC (4.10-5.20) X 10*6/uL Hgb (12.0-15.0) g/dL Hct (37.2-46.3) % MCHC (32.0-37.0) g/dL RDW (11.5-14.5) % POC Glucose (mg/dL) 196 H (70-110) mg/dL
--- NOTE | 2023-04-24 13:40 | P.CONS ---
History of Present Illness - Reason for Consult Consult date: 04/24/23 Anemia Requesting physician: Antione Kulkarni - Chief Complaint Symptomatic anemia - History of Present Illness This is a pleasant 62-year-old female who has a history of obesity, GERD, anemia, diabetes mellitus, hypertension and hyperlipidemia who presented to the emergency department for abnormal labs with a low hemoglobin and syncopal episode. Apparently patient is supposed to undergo shoulder surgery and he had outpatient labs done. She was called and told that her hemoglobin was low and needed to come to the emergency department. She states she also had a syncopal episode at that time as well. She does report taking NSAIDs and also takes a 81 mg aspirin daily. Patient has a history of anemia in the past and follows with Dr. Kulkarni. She has a history of gastric sleeve done in 2019, significant history of GERD which she takes Prilosec and Tums daily. She actually states she has to take multiple Tums due to the significance of the GERD. She underwent EGD and colonoscopy with About 07/12/2022. EGD with reported findings of mild gastritis and colonoscopy reporting mild diverticulosis. She was referred to hematology back in July or August 2022 for anemia after she underwent upper and lower endoscopy without any findings for GI bleed. She states that she was given parenteral iron times 2 but unclear of any further workup. She states that they did not give her any cause of possible anemia and had not followed up since then. Patient was noted to have a hemoglobin of 8.0 on admission with a drop to 6.0, general surgery had a covering surgeon Dr. Kennedy who reportedly took patient back for an EGD 04/22/2023. There is no report however operative she states gastritis, esophagitis and hiatal hernia. Patient does state that she has had black stool yesterday. She does suffer from chronic constipation all her life and states it is normal for her to only have 1 bowel movement a week. She does not take anything to help regulate her. She curr ently denies any dizziness, shortness of breath, or chest pain. She denies abdominal pain, nausea or vomiting. She does state that recently she did have the stomach flu in which she did not eat very well or much. Also states that she also has not had the best diet and does not feel that she gets proper nutrition. Review of Systems REVIEW OF SYSTEMS: CARDIOPULMONARY: No chest pain or shortness of breath. Gastrointestinal: No abdominal pain. Does have significant acid reflux. No nausea or vomiting. No hematemesis, coffee-ground emesis. No rectal bleeding, does report black stool yesterday. Chronic constipation. GENITOURINARY: No dysuria or hematuria. MUSCULOSKELETAL: Left shoulder pain SKIN: No rashes. No jaundice. ENDOCRINE: No chills, fevers. No excessive weight gain or loss. No polydipsia or polyuria. PSYCHIATRIC: Unremarkable. NEUROLOGY: No change in mental status. Denies dizziness, headache. ENT: Vision unremarkable. CONSTITUTIONAL: No recent weight loss. No fever, chills, night sweats. Past Medical History Past Medical History: Diabetes Mellitus, GERD/Reflux, Hyperlipidemia, Hypertension, Osteoarthritis (OA), Syncope Additional Past Medical History / Comment(s): HX OF BOILS-groin, abdominal pain, tinnitus left ear, syncopal episodes since 2022 Also anemic low hgb and iron History of Any Multi-Drug Resistant Organisms: None Reported Past Surgical History: Bariatric Surgery, Section, Orthopedic Surgery, Tubal Ligation Additional Past Surgical History / Comment(s): SHAMAR EYE VITRECTOMY, CERVICAL NECK FUSION, RT ROTATOR CUFF, RT CARPAL TUNNEL RELEASE.EGD X2, COLONOSCOPY, right thumb reattached after injury, sleeve gastrectomy 01-13-20. ingrown toenail removed 2020. I&D cyst on abdomen, rt cataract surgery, laser eye surgery. april 2022 gall stone removed Past Anesthesia/Blood Transfusion Reactions: No Reported Reaction Past Psychological History: No Psychological Hx Reported Smoking Status: Never smoker Past Alcohol Use History: None Reported Past Drug Use History: None Reported - Past Family History Sister(s) Family Medical History: Cancer Additional Family Medical History / Comment(s): bone brain lung Medications and Allergies Home Medications Medication Instructions Recorded Confirmed Type Atorvastatin [Lipitor] 80 mg PO HS 08/16/19 04/21/23 History Omeprazole [PriLOSEC] 40 mg PO DAILY #30 capsule. 01/15/20 04/21/23 Rx Dapagliflozin Propanediol [Farxiga] 10 mg PO DAILY 03/17/21 04/21/23 History lisinopriL [Zestril] 5 mg PO DAILY 06/30/22 04/21/23 History Aspirin 81 mg PO DAILY 10/04/22 04/21/23 History Semaglutide [Ozempic] 0.5 mg SQ FR 04/21/23 04/21/23 History Allergies Allergy/AdvReac Type Severity Reaction Status Date / Time losartan potassium Allergy Severe Dyspnea, Verified 04/21/23 13:38 [From Cozaar] Heart palpitations bee venom protein (honey bee) Allergy Anaphylaxis Verified 04/21/23 13:38 Iodinated Contrast Media AdvReac Unknown ELEVATED Verified 04/21/23 13:38 [Iodinated Contrast Media - BP AND IV Dye] PULSE MARQUES SHAMPOO Allergy Swelling Uncoded 04/21/23 13:38 OF FACE IV CONTRAST DYE AdvReac Unknown Elevated Uncoded 04/21/23 13:38 Blood pressure & pulse.palpitations Physical Exam Vitals: Vital Signs Temp Pulse Pulse Resp BP BP BP 04/24/23 07:16 97.9 F 88 18 120/56 04/24/23 02:09 98 F 68 19 103/67 04/23/23 21:19 94 103/66 94/53 04/23/23 19:20 97.9 F 73 18 91/55 04/23/23 13:15 98 F 84 16 105/41 Pulse Ox 04/24/23 07:16 99 04/24/23 02:09 98 04/23/23 21:19 04/23/23 19:20 100 04/23/23 13:15 98 Intake and Output 04/23/23 04/24/23 04/24/23 22:59 06:59 14:59 Intake Total 620 900 Balance 620 900 Intake: IV 20 900 Invasive Line 3 20 Sodium Chloride 0.9% 1, 900 000 ml @ 75 mls/hr IV . [id number] [facility] Rx#:[id number] Oral 600 Other: Voiding Method Toilet # Voids 1 2 # Bowel Movements 0 0 General appearance: The patient is alert, oriented, appears in no acute distress. HET: Head is normocephalic and atraumatic. Conjunctiva pink. Sclera anicteric. Neck: Supple without lymphadenopathy. Trachea midline. Heart: Regular. Lungs: Equal expansion, normal respiratory effort. Abdomen: Soft, nontender, nondistended with bowel sounds. No guarding or rigidity. Skin: No rashes. No jaundice. Extremities: Normal skin color and turgor. No pedal edema. Neurological: No focal deficits. Alert and oriented x3. Results CBC & Chem 7: 04/24/23 05:28 04/23/23 06:01 Labs: Abnormal Lab Results - Last 24 Hours (Table) 04/23/23 04/23/23 04/23/23 Range/Units 11:55 16:39 20:20 RBC (4.10-5.20) X 10*6/uL Hgb (12.0-15.0) g/dL Hct (37.2-46.3) % MCHC (32.0-37.0) g/dL RDW (11.5-14.5) % POC Glucose (mg/dL) 137 H 173 H 238 H (70-110) mg/dL 04/24/23 Range/Units 05:28 RBC 2.94 L (4.10-5.20) X 10*6/uL Hgb 8.5 L (12.0-15.0) g/dL Hct 27.9 L (37.2-46.3) % MCHC 30.5 L (32.0-37.0) g/dL RDW 16.0 H (11.5-14.5) % POC Glucose (mg/dL) (70-110) mg/dL Assessment and Plan (1) Symptomatic anemia Narrative/Plan: 62-year-old female presenting with symptomatic anemia with a history of anemia in the past. Had a drop in her hemoglobin to 6.0 and is status post 2 units of blood with a hemoglobin today that is stable at 8.5. Patient has history of anemia but has only required iron infusions in the past and no blood transfusions. States that she had a bowel movement yesterday and it was black she has chronic constipation. She did undergo EGD over the weekend on Monday with general surgery that reported gastritis, esophagitis and hiatal hernia as findings. Prior to that she has had previous EGDs with Dr. Grier for the sleeve gastrectomy and history of GERD last EGD colonoscopy done on 07/12/2022 for anemia and GERD. Dr. Kulkarni had findings reported as mild gastritis in the EGD and mild diverticulosis found on colonoscopy. Unclear etiology of anemia, normocytic anemia. Patient has had multiple endoscopies, however to date has not had a small bowel endoscopy. May consider small bowel capsule endoscopy for complete evaluation. Also need to consider possible etiologies including nutritional as patient states she has very poor nutrition history of gastric sleeve. Recommend following up with hematology, this can be done as an outpatient. Current Visit: Yes Status: Acute Code(s): D64.9 - ANEMIA, UNSPECIFIED SNOMED Code(s): 408137209 (2) H/O gastric sleeve Current Visit: Yes Status: Acute Code(s): Z90.3 - ACQUIRED ABSENCE OF STOMACH [PART OF] SNOMED Code(s): 669478968039351 (3) GERD (gastroesophageal reflux disease) Current Visit: No Status: Acute Code(s): K21.9 - GASTRO-ESOPHAGEAL REFLUX DISEASE WITHOUT ESOPHAGITIS SNOMED Code(s): 794468117 Plan: 1. Continue symptomatic and supportive care 2. Avoid NSAIDs 3. Recommend Protonix twice daily 4. Daily CBC, transfuse for hemoglobin less than 7 5. Plan for small bowel capsule endoscopy study tomorrow 6. Clear liquid diet, n.p.o. after midnight 7. Consider hematology consultation, this can be done as an outpatient follow- up Thank you for this consultation, further recommendations forthcoming. Dr. Naima Jensen I agree with the dictator's note, documented as a scribe by Kerri Harris.
--- NOTE | 2023-04-24 15:41 | P.PN ---
Subjective Progress Note Date: 04/24/23 CHIEF COMPLAINT: Anemia HISTORY OF PRESENT ILLNESS: Patient presented to hospital with dark stools. She did require 2 units of blood for hemoglobin of 6. Hemoglobin has stayed stable at 8.5. She did have an EGD during this admission with Dr. Peters. Results showed gastritis, esophagitis, hiatal hernia and anemia. Patient reports still having dark stools. Denies abdominal pain. PHYSICAL EXAM: VITAL SIGNS: Reviewed. GENERAL: Well-developed in no acute distress. ABDOMEN: Soft. Nondistended. Nontender. NEUROLOGIC: Alert and oriented. Cranial nerves II through XII grossly intact. ASSESSMENT: 1. Symptomatic anemia 2. Acute GI bleed with black stools 3. EGD revealing gastritis, esophagitis and hiatal hernia PLAN: -Consult GI service for further evaluation of patient's anemia and GI bleed. GI service has ordered a small bowel capsule endoscopy -Continue to monitor hemoglobin -Continue to monitor for any signs or symptoms of bleeding -Continue Protonix Physician Woodwork Teacher note has been reviewed by physician. Signing provider agrees with the documented findings, assessment, and plan of care. Objective - Vital Signs Vital signs: Vital Signs Temp 98.0 F 04/24/23 13:26 Pulse 75 04/24/23 13:26 Resp 18 04/24/23 13:26 BP 137/70 04/24/23 13:26 Pulse Ox 100 04/24/23 13:26 FiO2 Intake & Output 04/23/23 04/24/23 04/24/23 18:59 06:59 18:59 Intake Total 1520 Balance 1520 Intake: IV 920 Invasive Line 3 20 Sodium Chloride 0.9% 1, 900 000 ml @ 75 mls/hr IV . [id number] [facility] Rx#:[id number] Oral 600 Other: Voiding Method Toilet # Voids 2 2 # Bowel Movements 0 - Labs CBC & Chem 7: 04/24/23 05:28 04/23/23 06:01 Labs: Abnormal Lab Results - Last 24 Hours (Table) 04/23/23 04/23/23 04/24/23 Range/Units 16:39 20:20 05:28 RBC 2.94 L (4.10-5.20) X 10*6/uL Hgb 8.5 L (12.0-15.0) g/dL Hct 27.9 L (37.2-46.3) % MCHC 30.5 L (32.0-37.0) g/dL RDW 16.0 H (11.5-14.5) % POC Glucose (mg/dL) 173 H 238 H (70-110) mg/dL 04/24/23 Range/Units 11:22 RBC (4.10-5.20) X 10*6/uL Hgb (12.0-15.0) g/dL Hct (37.2-46.3) % MCHC (32.0-37.0) g/dL RDW (11.5-14.5) % POC Glucose (mg/dL) 196 H (70-110) mg/dL
--- NOTE | 2023-04-24 16:15 | CDI ---
Documentation Clarification Form Date: 04/24/2023 03:58:10 PM From: Colette Odonnell RN, CCDS Phone: [phone] Admit Date: 04/22/2023 12:32:00 PM Patient Name: Ree Last Visit Number: [id number] Discharge Date: ATTENTION: The Clinical Documentation Specialists (CDI) and [facility] Coding Staff appreciate your assistance in clarifying documentation. Please respond to the clarification below the line at the bottom and electronically sign. The CDI & [facility] Coding staff will review the response and follow-up if needed. Please note: Queries are made part of the Legal Health Record. If you have any questions, please contact the author of this message via ITS. Dr. Dominick Patel Your patient has a HGB 8.0, HCT 24.2. Fecal occult blood positive on 04/21/23 Please clarify if there is an additional diagnosis and/or clinical significance related to these lab values. History/Risk Factors: Diabetes Mellitus, GERD/Reflux, Hyperlipidemia, Hypertension, Osteoarthritis (OA), Syncope 2022 low hgb and iron Clinical indicators: 62-year-old female present to the ED for low hemoglobin. Patient does have lightheadedness and exertional dyspnea, fatigue and believes her stools have been dark. 04/21 HGB 6.0 HCT 18.5 04/23 Attending progress note: Anemia and Acute GI bleed. Treatment: Small bowel capsule endoscopy Transfuse 2 Units PRBS 04/22/23 Protonix 40 BID 04/21-04/22 then 40 IVP Daily 04/23 Monitor hemoglobin and any sign or symptoms of bleeding Is there an additional diagnosis and/or clinical significance related to the above lab result/information: [ x ] Acute blood loss anemia [ ] Unable to determine [ ] Other please specify (Template Last Revised: March 2022) MTDD
[2023-04-24 16:24] LABS: Glucose,Whole Blood 124 mg/dL (70-110)
[2023-04-24 20:45] LABS: Glucose,Whole Blood 131 mg/dL (70-110)
[2023-04-24] MEDS: MAGNESIUM CITRATE 296 ML BOTTLE PO ONE (21:03)
[2023-04-24] MEDS: ACETAMINOPHEN TAB 325 MG TAB PO PRN (21:24)
[2023-04-25 06:08] LABS: Glucose,Whole Blood 93 mg/dL (70-110)
[2023-04-25 10:07] LABS: African American GFR (CKD) >90 (>60 ml/min/1.73 sqM); Anion Gap 6 mmol/L; Blood Urea Nitrogen 10 mg/dL (7-17); Calcium 8.7 mg/dL (8.4-10.2); Carbon Dioxide 25 mmol/L (22-30); Chloride 112 mmol/L (98-107); Glucose 99 mg/dL (74-99); Magnesium 2.2 mg/dL (1.6-2.3); Non-African American GFR(CKD) >90 (>60 ml/min/1.73 sqM); Potassium 4.1 mmol/L (3.5-5.1); Sodium 143 mmol/L (137-145)
[2023-04-25] MEDS: ASCORBIC ACID 500 MG TAB PO SCH (10:10)
[2023-04-25 11:16] LABS: HCT 27.3 % (37.2-46.3); HGB 8.3 g/dL (12.0-15.0); MCH 29.5 pg (27.0-32.0); MCHC 30.4 g/dL (32.0-37.0); MCV 97.2 FL (80.0-97.0); NRBC Per 100 WBC 0 X 10*3/uL (0.00-0.01); Platelet Count 233 X 10*3/uL (140-440); RBC 2.81 X 10*6/uL (4.10-5.20); RDW 17.1 % (11.5-14.5); WBC 9.62 X 10*3/uL (4.50-10.00)
--- NOTE | 2023-04-25 11:39 | P.PN ---
Subjective Progress Note Date: 04/25/23 Principal diagnosis: Anemia, GI bleed This is a pleasant 62-year-old female who has a history of obesity, GERD, anemia, diabetes mellitus, hypertension and hyperlipidemia who presented to the emergency department for abnormal labs with a low hemoglobin and syncopal episode. Apparently patient is supposed to undergo shoulder surgery and he had outpatient labs done. She was called and told that her hemoglobin was low and needed to come to the emergency department. She states she also had a syncopal episode at that time as well. She does report taking NSAIDs and also takes a 81 mg aspirin daily. Patient has a history of anemia in the past and follows with Dr. Kulkarni. She has a history of gastric sleeve done in 2019, significant history of GERD which she takes Prilosec and Tums daily. She actually states she has to take multiple Tums due to the significance of the GERD. She underwent EGD and colonoscopy with About 07/12/2022. EGD with reported findings of mild gastritis and colonoscopy reporting mild diverticulosis. She was referred to hematology back in July or August 2022 for anemia after she underwent upper and lower endoscopy without any findings for GI bleed. She states that she was given parenteral iron times 2 but unclear of any further workup. She states that they did not give her any cause of possible anemia and had not followed up since then. Patient was noted to have a hemoglobin of 8.0 on admission with a drop to 6.0, general surgery had a covering surgeon Dr. Kennedy who reportedly took patient back for an EGD 04/22/2023. There is no report however operative she states gastritis, esophagitis and hiatal hernia. Patient does state that she has had black stool yesterday. She does suffer from chronic constipation all her life and states it is normal for her to only have 1 bowel movement a week. She does not take anything to help regulate her. She currently denies any dizziness, shortness of breath, or chest pain. She denies abdominal pain, nausea or vomiting. She does state that recently she did have the stomach flu in which she did not eat very well or much. Also states that she also has not had the best diet and does not feel that she gets proper nutrition. 04/25/2023 Patient seen and examined today as a follow-up. This morning she underwent small bowel capsule endoscopy which is currently in progress. States she had her magnesium citrate yesterday evening however did not have a large bowel movement until today. She states it was very dark and black. She denies any weakness, dizziness, shortness of breath no abdominal pain, nausea or vomiting. She is tolerating clear liquid diet at this time. Today's hemoglobin 8.3 platelet count 233,000. Objective - Vital Signs Vital signs: Vital Signs Temp 97.7 F 04/25/23 07:31 Pulse 79 04/25/23 07:31 Resp 17 04/25/23 07:31 BP 132/66 04/25/23 07:31 Pulse Ox 100 04/25/23 07:31 FiO2 Intake & Output 04/24/23 04/25/23 04/25/23 18:59 06:59 18:59 Other: Voiding Method Toilet Toilet # Voids 4 5 - Exam General appearance: The patient is alert, oriented, appears in no acute distress. HET: Head is normocephalic and atraumatic. Conjunctiva pink. Sclera anicteric. Neck: Supple without lymphadenopathy. Abdomen: Soft, nontender, nondistended.. Extremities: Normal skin color and turgor. No pedal edema Skin: No rashes, no jaundice. Neurological: No focal deficits. Alert and oriented. - Labs CBC & Chem 7: 04/25/23 06:21 04/25/23 06:21 Labs: Abnormal Lab Results - Last 24 Hours (Table) 04/24/23 04/24/23 04/25/23 Range/Units 16:23 20:12 06:21 RBC 2.81 L (4.10-5.20) X 10*6/uL Hgb 8.3 L (12.0-15.0) g/dL Hct 27.3 L (37.2-46.3) % MCV 97.2 H (80.0-97.0) FL MCHC 30.4 L (32.0-37.0) g/dL RDW 17.1 H (11.5-14.5) % Chloride (98-107) mmol/L POC Glucose (mg/dL) 124 H 131 H (70-110) mg/dL 04/25/23 Range/Units 06:21 RBC (4.10-5.20) X 10*6/uL Hgb (12.0-15.0) g/dL Hct (37.2-46.3) % MCV (80.0-97.0) FL MCHC (32.0-37.0) g/dL RDW (11.5-14.5) % Chloride 112 H (98-107) mmol/L POC Glucose (mg/dL) (70-110) mg/dL Assessment and Plan (1) Symptomatic anemia Narrative/Plan: 62-year-old female presenting with symptomatic anemia with a history of anemia in the past. Had a drop in her hemoglobin to 6.0 and is status post 2 units of blood with a hemoglobin today that is stable at 8.5. Patient has history of anemia but has only required iron infusions in the past and no blood tra nsfusions. States that she had a bowel movement yesterday and it was black she has chronic constipation. She did undergo EGD over the weekend on Monday with general surgery that reported gastritis, esophagitis and hiatal hernia as findings. Prior to that she has had previous EGDs with Dr. Grier for the sleeve gastrectomy and history of GERD last EGD colonoscopy done on 07/12/2022 for anemia and GERD. Dr. Kulkarni had findings reported as mild gastritis in the EGD and mild diverticulosis found on colonoscopy. Unclear etiology of anemia, normocytic anemia. Patient has had multiple endoscopies, however to date has not had a small bowel endoscopy. May consider small bowel capsule endoscopy for complete evaluation. Also need to consider possible etiologies including nutritional as patient states she has very poor nutrition history of gastric sleeve. Recommend following up with hematology, this can be done as an outpatient. Patient currently undergoing small bowel capsule endoscopy. Did have further black stool this morning. Hemoglobin is stable at 8.3. She is on oral iron. Agree with continuing iron. Patient currently asymptomatic and states that she is feeling well and would like to possibly go home later today. I think this is reasonable with follow-up with gastroenterology within a week to review small bowel capsule endoscopy. Current Visit: Yes Status: Acute Code(s): D64.9 - ANEMIA, UNSPECIFIED SNOMED Code(s): 359359008 (2) H/O gastric sleeve Current Visit: Yes Status: Acute Code(s): Z90.3 - ACQUIRED ABSENCE OF STOMACH [PART OF] SNOMED Code(s): 821198551697898 (3) GERD (gastroesophageal reflux disease) Current Visit: No Status: Acute Code(s): K21.9 - GASTRO-ESOPHAGEAL REFLUX DISEASE WITHOUT ESOPHAGITIS SNOMED Code(s): 261610242 Plan: 1. Continue symptomatic and supportive care 2. Avoid NSAIDs 3. Recommend Protonix twice daily, continue oral iron daily 4. Daily CBC, transfuse for hemoglobin less than 7 5. Patient undergoing small bowel capsule endoscopy 6. Patient may have clear liquid, then consistent carbohydrate for lunch 7. Consider hematology consultation, this can be done as an outpatient follow- up 8. Patient is cleared from gastroenterology for discharge today after small bowel capsule endoscopy completed. Patient to call office for results. Thank you for this consultation, patient is cleared from gastroenterology for discharge. Dr. Naima Jensen I agree with the dictator's note, documented as a scribe by Kerri Harris.
[2023-04-25 11:43] LABS: Glucose,Whole Blood 108 mg/dL (70-110)
[2023-04-25] MEDS: FERROUS SULFATE 325 MG TAB PO SCH (12:08)
--- NOTE | 2023-04-25 12:17 | P.PN ---
Subjective Progress Note Date: 04/25/23 Hospital course: Patient is a very pleasant 62-year-old female with a past medical history of hypertension, hyperlipidemia, GERD, iron deficiency anemia, and lcf-ntedfte-krkukxift type 2 diabetes mellitus. She presented to the emergency department on 04/21/2023 secondary to concerns of low hemoglobin. Upon arrival to the emergency department patient was found to be slightly tachycardic with a pulse of 104. Laboratory analysis in the emergency department demonstrates a white blood cell count of 11.1, hemoglobin 8, platelets 235, BUN 32, magnesium 1.5. Fecal occult blood testing was negative. She was admitted under our services. Repeat labs revealed a drop in hemoglobin from 8.0 down to 6.0. Patient was transfused with 2 units PRBCs and general surgery was consulted. An echocardiogram was completed showing preserved EF of 55 to 60% with moderate aortic stenosis and mild aortic and tricuspid regurgitation. On 04/25/2023 patient was taken for a small bowel Endocapsule by gastroenterology. Hemoglobin has remained stable with no further drops in hemoglobin levels and no noted episodes of GI bleeding. Physical exam: Patient seen and fully evaluated at bedside this morning. She was sitting up in the chair and appears to be doing well. She denies having any abdominal pain or discomfort. She denies having any nausea or vomiting. Hemoglobin stable at 8.3. Patient tolerating clear liquid diet. Vital signs reviewed and stable. General: Nontoxic, no distress and appears stated age. Derm: Skin warm and dry, normal coloration for ethnicity. Head: Atraumatic, normocephalic and symmetric. Eyes: EOMs intact, no lid lag, and anicteric sclera Mouth: no lip lesions, mucus membranes moist Cardiovascular: regular rate and rhythm with normal S1S2, no murmur, positive posterior tibial pulses bilaterally, and cap refill < 2 seconds. Lungs: Respirations even, regular, and unlabored on room air. Lungs CTA bilaterally, no rhonchi, no rales, no wheezing, and no accessory muscle usage. Abdominal: soft, nontender to palpation, no guarding, no appreciable org anomegaly Ext: ROM intact. No gross muscle atrophy, no edema, no contractures Neuro: Speech clear, face symmetrical and CN II-XII grossly intact with no noted focal neuro deficits Psych: Alert and oriented to person, place, time, and situation. Appropriate and pleasant affect. Assessment and Plan of Care: Acute on chronic iron deficiency anemia, rule out GI bleed Rule out acute GI bleed Lightheadedness, possibly secondary to aortic stenosis Moderate aortic stenosis -Gastroenterology following, took patient for small bowel Endocapsule on 04/25/2023 -General surgery following, reviewed documentation in chart. -Continue to hold aspirin -Continue-Protonix 40 mg IV daily -Continue IV iron infusion 125 mg daily -Hemoglobin stable, will continue to monitor and transfuse if indicated for hemoglobin levels less than 7 -Recommend outpatient cardiology follow-up for further evaluation and long-term monitoring/management of aortic stenosis Type II jkp-blwcfbm-aironvwad diabetes -Hold Ozempic -Continue Farxiga 10 mg daily -Sliding scale insulin, monitor for hypoglycemia Chronic: GERD Hypertension Dyslipidemia Data reviewed: Morning labs reviewed. CBC showing stable hemoglobin of 8.3. BMP showing mild hyperchloremia with chloride of 112 otherwise normal findings. Vital signs reviewed and stable with blood pressure 132/66, heart rate 79, respiratory rate 17, temp 97.7 F, and SpO2 of 100% on room air. DVT ppx: SCDs Code status: Full code Anticipated discharge place: Pending clinical course Anticipated discharge time: Pending clinical course Patient was seen independently by Nurse Pracitioner. This document was prepared using [employer] dictation software. Please allow for errors in martial arts instructor, while rare they do occur. I reviewed the documentation as provided by the EZEQUIEL above, who is the original author of this note. I agree with the documented assessment and plan, with the following changes: none Objective - Vital Signs Vital signs: Vital Signs Temp 97.7 F 04/25/23 07:31 Pulse 79 04/25/23 07:31 Resp 17 04/25/23 07:31 BP 132/66 04/25/23 07:31 Pulse Ox 100 04/25/23 07:31 FiO2 Intake & Output 04/24/23 04/25/23 04/25/23 18:59 06:59 18:59 Other: Voiding Method Toilet Toilet # Voids 4 5 - Labs CBC & Chem 7: 04/25/23 06:21 04/25/23 06:21 Labs: Abnormal Lab Results - Last 24 Hours (Table) 04/24/23 04/24/23 04/24/23 Range/Units 05:28 11:22 16:23 RBC 2.94 L (4.10-5.20) X 10*6/uL Hgb 8.5 L (12.0-15.0) g/dL Hct 27.9 L (37.2-46.3) % MCHC 30.5 L (32.0-37.0) g/dL RDW 16.0 H (11.5-14.5) % POC Glucose (mg/dL) 196 H 124 H (70-110) mg/dL 04/24/23 Range/Units 20:12 RBC (4.10-5.20) X 10*6/uL Hgb (12.0-15.0) g/dL Hct (37.2-46.3) % MCHC (32.0-37.0) g/dL RDW (11.5-14.5) % POC Glucose (mg/dL) 131 H (70-110) mg/dL
--- NOTE | 2023-04-25 12:59 | P.PN ---
Subjective Progress Note Date: 04/25/23 CHIEF COMPLAINT: Anemia HISTORY OF PRESENT ILLNESS: Patient presented to hospital with dark stools. She did require 2 units of blood for hemoglobin of 6. Hemoglobin stable at 8.4. She did have an EGD during this admission with Dr. Peters. Results showed gastritis, esophagitis, hiatal hernia and anemia. Patient denies any abdominal pain. She did have another dark stool this morning. She was seen by GI service and is undergoing a capsule endoscopy today. PHYSICAL EXAM: VITAL SIGNS: Reviewed. GENERAL: Well-developed in no acute distress. ABDOMEN: Soft. Nondistended. Nontender. NEUROLOGIC: Alert and oriented. Cranial nerves II through XII grossly intact. ASSESSMENT: 1. Symptomatic anemia 2. Acute GI bleed with black stools 3. EGD revealing gastritis, esophagitis and hiatal hernia PLAN: -Possible discharge later today if cleared by GI service -Awaiting capsule endoscopy results -Continue to monitor for any signs or symptoms of bleeding -Continue to monitor hemoglobin -Continue Protonix Physician Schedule Analyst note has been reviewed by physician. Signing provider agrees with the documented findings, assessment, and plan of care. Objective - Vital Signs Vital signs: Vital Signs Temp 97.7 F 04/25/23 07:31 Pulse 79 04/25/23 07:31 Resp 17 04/25/23 07:31 BP 132/66 04/25/23 07:31 Pulse Ox 100 04/25/23 07:31 FiO2 Intake & Output 04/24/23 04/25/23 04/25/23 18:59 06:59 18:59 Other: Voiding Method Toilet Toilet # Voids 4 5 - Labs CBC & Chem 7: 04/25/23 06:21 04/25/23 06:21 Labs: Abnormal Lab Results - Last 24 Hours (Table) 04/24/23 04/24/23 04/25/23 Range/Units 16:23 20:12 06:21 RBC 2.81 L (4.10-5.20) X 10*6/uL Hgb 8.3 L (12.0-15.0) g/dL Hct 27.3 L (37.2-46.3) % MCV 97.2 H (80.0-97.0) FL MCHC 30.4 L (32.0-37.0) g/dL RDW 17.1 H (11.5-14.5) % Chloride (98-107) mmol/L POC Glucose (mg/dL) 124 H 131 H (70-110) mg/dL 04/25/23 Range/Units 06:21 RBC (4.10-5.20) X 10*6/uL Hgb (12.0-15.0) g/dL Hct (37.2-46.3) % MCV (80.0-97.0) FL MCHC (32.0-37.0) g/dL RDW (11.5-14.5) % Chloride 112 H (98-107) mmol/L POC Glucose (mg/dL) (70-110) mg/dL
[2023-04-25 15:28] VITALS: BP 124/83; PULSE 82; RESP 18; TEMP 98.2
--- NOTE | 2023-04-25 16:37 | P.DS ---
Providers Date of admission: 04/22/23 12:32 Expected date of discharge: 04/25/23 Attending physician: Sydney Acosta DO Consults: 04/24/23 08:11 Consult Physician Routine Consulting Provider: Antione Kulkarni Consult Reason/Comments: EGD Do you want consulting provider notified?: Already Contacted 04/24/23 09:35 Consult Physician Routine Consulting Provider: Nancy Jensen Consult Reason/Comments: GIB, dark stools Do you want consulting provider notified?: Yes Primary care physician: Karlos Shah [facility] Course: Discharge diagnoses: Acute on chronic iron deficiency anemia, rule out GI bleed Rule out acute GI bleed Lightheadedness, possibly secondary to aortic stenosis Moderate aortic stenosis Type II exk-gxexajq-bjskaqcng diabetes GERD Hypertension Dyslipidemia Hospital Course: Patient is a very pleasant 62-year-old female with a past medical history of hypertension, hyperlipidemia, GERD, iron deficiency anemia, and jwq-vcrcegh-rsykiajva type 2 diabetes mellitus. She presented to the emergency department on 04/21/2023 secondary to concerns of low hemoglobin. Upon arrival to the emergency department patient was found to be slightly tachycardic with a pulse of 104. Laboratory analysis in the emergency department demonstrates a white blood cell count of 11.1, hemoglobin 8, platelets 235, BUN 32, magnesium 1.5. Fecal occult blood testing was negative. She was admitted under our services. Repeat labs revealed a drop in hemoglobin from 8.0 down to 6.0. Patient was transfused with 2 units PRBCs and general surgery was consulted. An echocardiogram was completed showing preserved EF of 55 to 60% with moderate aortic stenosis and mild aortic and tricuspid regurgitation. On 04/25/2023 patient was taken for a small bowel Endocapsule by gastroenterology. Hemoglobin has remained stable with no further drops in hemoglobin levels and no noted episodes of GI bleeding. Patient has been cleared from GI perspective stating patient will need to follow-up outpatient in their office for capsule endoscopy results. Medically, patient is stable at this time. Patient discharged home on ferrous sulfate 325 mg daily. Patient may resume daily medication regimen with no further medication changes. If capsule endoscopy study is negative, recommend outpatient follow-up with hematology for further evaluation of chronic iron deficiency anemia. Patient was also encouraged to follow-up outpatient with director diversity for long-term monitoring and if needed future management of aortic stenosis. Physical exam: Vital signs reviewed and stable. General: Nontoxic, no distress and appears stated age. Derm: Skin warm and dry, normal coloration for ethnicity. Head: Atraumatic, normocephalic and symmetric. Eyes: EOMs intact, no lid lag, and anicteric sclera Mouth: no lip lesions, mucus membranes moist Cardiovascular: regular rate and rhythm with normal S1S2, no murmur, positive posterior tibial pulses bilaterally, and cap refill < 2 seconds. Lungs: Respirations even, regular, and unlabored on room air. Lungs CTA bilaterally, no rhonchi, no rales, no wheezing, and no accessory muscle usage. Abdominal: soft, nontender to palpation, no guarding, no appreciable organomegaly Ext: ROM intact. No gross muscle atrophy, no edema, no contractures Neuro: Speech clear, face symmetrical and CN II-XII grossly intact with no noted focal neuro deficits Psych: Alert and oriented to person, place, time, and situation. Appropriate and pleasant affect. A total of 32 minutes of time were spent preparing this complex discharge summary. Pt was discharged on 04/25/2023 at 4:27 PM. Patient was seen independently by Nurse Practitioner. This document was prepared using [employer] dictation software. Please allow for errors in circuit design engineer while rare they do occur. I reviewed the documentation as provided by the EZEQUIEL above, who is the original author of this note. I agree with the documented assessment and plan, with the following changes: none Patient Condition at Discharge: Stable Plan - Discharge Summary Discharge Rx Participant: Yes New Discharge Prescriptions: New Ferrous Sulfate [Iron (65 MG Elemental)] 325 mg PO W/LUNCH 30 Days #30 tab Continue Atorvastatin [Lipitor] 80 mg PO HS Omeprazole [PriLOSEC] 40 mg PO DAILY #30 capsule. Dapagliflozin Propanediol [Farxiga] 10 mg PO DAILY Aspirin 81 mg PO DAILY lisinopriL [Zestril] 5 mg PO DAILY Semaglutide [Ozempic] 0.5 mg SQ FR Discharge Medication List Atorvastatin [Lipitor] 80 mg PO HS 08/16/19 [History] Omeprazole [PriLOSEC] 40 mg PO DAILY #30 capsule. 01/15/20 [Rx] Dapagliflozin Propanediol [Farxiga] 10 mg PO DAILY 03/17/21 [History] lisinopriL [Zestril] 5 mg PO DAILY 06/30/22 [History] Aspirin 81 mg PO DAILY 10/04/22 [History] Semaglutide [Ozempic] 0.5 mg SQ FR 04/21/23 [History] Ferrous Sulfate [Iron (65 MG Elemental)] 325 mg PO W/LUNCH 30 Days #30 tab 04/25/23 [Rx] Follow up Appointment(s)/Referral(s): Varun Perez MD [Medical Doctor] - 1 Week (follow up for evaluation as discussed for aortic stenosis) Edgard Avalos MD [STAFF PHYSICIAN] - 2 Weeks (if capsule endoscopy study is negative, recommend outpatient follow up with hematology) Karlos Cortez MD [Primary Care Provider] - 1-2 days Nancy Jensen MD [STAFF PHYSICIAN] - 1 Week (Office closed please call 04/25 to make a follow up appointment, thank you!) Activity/Diet/Wound Care/Special Instructions: Activity: As tolerated. Take breaks as needed. Diet: Heart healthy and carb consistent diet. Avoid salts, or foods with hidden salts such as canned or boxed foods and frozen dinners. Extra salt makes your heart work harder and traps the fluid in your body for longer. Special Instructions: Take all of your medications as directed and remember to keep all of your doctor's appointments and follow-up as needed. Thank you for allowing us to participate in your care, it was truly a pleasure having you for our patient!!! Discharge Disposition: HOME SELF-CARE
== END 2023-04-25 17:10 | disposition home or self-care (01) | DRG 378 ==
LOC: EC 11:57 → 4SSUR 14:51 → OBSVTOIN 04-22 12:32
PROVIDERS: ADMIT Internal Medicine; ATTEND Internal Medicine
PROC: 30233N1 Transfusion of Nonautologous Red Blood Cells into Peripheral Vein, Percutaneous Approach (ICD-10-PCS; principal; 2023-04-22 12:00)
PROC: 0DJ07ZZ Inspection of Upper Intestinal Tract, Via Natural or Artificial Opening (ICD-10-PCS; 2023-04-25)
DX: K92.2 Gastrointestinal hemorrhage, unspecified (principal); D62 Acute posthemorrhagic anemia; D50.9 Iron deficiency anemia, unspecified; I27.20 Pulmonary hypertension, unspecified; E87.8 Other disorders of electrolyte and fluid balance, not elsewhere classified; E11.9 Type 2 diabetes mellitus without complications; E78.5 Hyperlipidemia, unspecified; I10 Essential (primary) hypertension; I08.3 Combined rheumatic disorders of mitral, aortic and tricuspid valves; Z28.310 Unvaccinated for COVID-19; K21.00 Gastro-esophageal reflux disease with esophagitis, without bleeding; K44.9 Diaphragmatic hernia without obstruction or gangrene; K57.90 Diverticulosis of intestine, part unspecified, without perforation or abscess without bleeding; K29.70 Gastritis, unspecified, without bleeding; K59.09 Other constipation; M19.90 Unspecified osteoarthritis, unspecified site; H93.12 Tinnitus, left ear; Z79.82 Long term (current) use of aspirin; Z79.84 Long term (current) use of oral hypoglycemic drugs; Z79.85 Long-term (current) use of injectable non-insulin antidiabetic drugs; Z79.899 Other long term (current) drug therapy; Z98.1 Arthrodesis status; Z98.84 Bariatric surgery status; Z88.8 Allergy status to other drugs, medicaments and biological substances; Z91.041 Radiographic dye allergy status
CPT/HCPCS: 36415; 43235; 71046; 80048; 80053; 82272; 83036; 83605; 83735; 85025; 85027; 85610; 85730; 86850; 86900; 86901; 86920; 91110; 93306; 96374; 99285

== ENCOUNTER 2023-05-09 11:14 | Day surgery (SDC) | payer MEDICARE, OTHER ==
[2023-05-08 12:02] VITALS: BMI 30.2
[2023-05-09 12:35] LABS: Glucose,Whole Blood 163 mg/dL (70-110)
[2023-05-09] MEDS: LACTATED RINGERS 1,000 ML IV SCH (12:35)
[2023-05-09] MEDS ORDERED: LIDOCAINE 2% (PF) 20 MG/ML 5 ML VIAL ONE (13:00)
[2023-05-09] MEDS ORDERED: PROPOFOL 10 MG/ML 20 ML VIAL IV ONE (13:00)
--- NOTE | 2023-05-09 13:20 | P.PCN ---
Date of Procedure: 05/09/23 Procedure(s) Performed: BRIEF HISTORY: Patient is a 62-year-old, pleasant, white female scheduled for an upper endoscopyas a part of evaluation of severe symptomatic anemia and black tarry stools. She was recently hospitalized 2 weeks ago with anemia and underwent a small bowel capsule endoscopy that revealed active oozing in the bulb of the duodenum. She did have an EGD with the surgical team about 2 weeks ago that was unremarkable other than gastric sleeve surgery. Her last colonoscopy was a few months ago that was. PROCEDURE PERFORMED: Esophagogastroduodenoscopy with argon plasma coagulation. PREOPERATIVE DIAGNOSIS: Symptomatic anemia and black tarry stoolsand abnormal small bowel capsule that revealed fresh blood in the duodenum. IV sedation per anesthesia. PROCEDURE: After informed consent was obtained, the patient was brought into the endoscopy unit. IV sedation was administered by Anesthesia under continuous monitoring. Initially the Olympus GIF-140 video endoscope was inserted into the mouth. Esophagus intubated without any difficulty. It was gradually advanced into the stomach and duodenum and carefully examined. The bulb of the duodenum had 2 nonbleeding angiectasia identified one just distal to the pylorus and the in the duodenal sweep with of which were coagulated using argon plasma.. The scope at this time was withdrawn to the stomach, adequately insufflated with air, and upon careful examination, mucosa of the antrum,at first small nonbleeding angiectasia that was also coagulated using argon plasma. There was evidence of gastric surgery noted. Mucosa of the body appeared normal. The scope was then withdrawn into the esophagus.small hiatal hernia noted. The GE junction was located at 39 cm from the incisors. The esophagus appeared normal. There were 2 superficial erosions seen and the patient tolerated the procedure well. IMPRESSION: 1. 2 nonbleeding angiectasia in the bulb of the duodenum status post argon plasma coagulation. 2. 2 small nonbleedingAngie to be seen in the antrum of the stomach status post argon plasma coagulation. 3. Small hiatal herniaand LA grade B reflux esophagitis 4. Evidence of gastric stasis surgery RECOMMENDATIONS: The findings of this examination were discussed with the patient as well as her family. We will obtain CBC today.start iron supplements daily.. continue with omeprazole 20 mg daily and follow antireflux measures. Follow up in office in 2 weeks.
[2023-05-09 14:15] LABS: HCT 22.4 % (34.0-46.0); Hypochromasia Marked; MCH 29.4 pg (25.0-35.0); MCHC 31.1 g/dL (31.0-37.0); MCV 94.3 fL (80.0-100.0); Mean Platelet Volume 7.9; Platelet Count 230 k/uL (150-450); Poikilocytosis Slight; RBC 2.37 m/uL (3.80-5.40); RDW 15.3 % (11.5-15.5); WBC 5.2 k/uL (3.8-10.6)
[2023-05-09 16:29] VITALS: RESP 16
[2023-05-09 18:32] VITALS: BP 132/69; PULSE 77; TEMP 98.7
== END 2023-05-09 18:10 | disposition home or self-care (01) ==
LOC: ORWHC2ENDO 11:14
PROVIDERS: ATTEND Internal Medicine Gastroenterology
DX: K21.00 Gastro-esophageal reflux disease with esophagitis, without bleeding (principal); D64.9 Anemia, unspecified; K44.9 Diaphragmatic hernia without obstruction or gangrene; I10 Essential (primary) hypertension; E78.5 Hyperlipidemia, unspecified; E11.9 Type 2 diabetes mellitus without complications; M19.90 Unspecified osteoarthritis, unspecified site; Z79.82 Long term (current) use of aspirin; Z79.899 Other long term (current) drug therapy; Z91.041 Radiographic dye allergy status; Z79.84 Long term (current) use of oral hypoglycemic drugs; Z98.891 History of uterine scar from previous surgery; Z98.51 Tubal ligation status
CPT/HCPCS: 43255; 86900; 86901; 85027; 86850; 86920; P9016; J2704; J2001; 43270

== ENCOUNTER → 2023-05-11 | Outpatient (CLI) | payer MEDICARE, OTHER ==
--- NOTE | 2023-05-11 17:20 | US ---
EXAMINATION TYPE: US carotid duplex BILAT DATE OF EXAM: 05/11/2023 COMPARISON: NONE CLINICAL INDICATION: Female, 62 years old with history of R55 SYNCOPE AND COLLAPSE; syncope TECHNIQUE: Carotid duplex ultrasound examination. Indirect Doppler criteria was utilized. FINDINGS: EXAM MEASUREMENTS: RIGHT: Peak Systolic Velocity (PSV) cm/sec ----- Right CCA: 92.9 ----- Right ICA: 107.5 ----- Right ECA: 100.0 ICA/CCA ratio: 1.2 RIGHT: End Diastole cm/sec ----- Right CCA: 26.0 ----- Right ICA: 34.8 ----- Right ECA: 11.1 LEFT: Peak Systolic Velocity (PSV) cm/sec ----- Left CCA: 90.5 ----- Left ICA: 89.2 ----- Left ECA: 109.7 ICA/CCA ratio: 1.0 LEFT: End Diastole cm/sec ----- Left CCA: 27.0 ----- Left ICA: 28.3 ----- Left ECA: 11.1 VERTEBRALS (direction of flow): Right Vertebral: Antegrade Left Vertebral: Antegrade Rhythm: Normal IMPRESSION: Minimal atherosclerotic changes; no significant velocity elevations or stenosis. Criteria for Assigning % of Stenosis / Diameter reduction (Estimation based on the indirect measurements of the internal carotid artery velocities (ICA PSV). 1. Normal (no stenosis)=ICA PSV < 125 cm/s: ratio < 2.0: ICA EDV<40 cm/s. 2. Less than 50% stenosis=ICA PSV < 125 cm/s: ratio < 2.0: ICA EDV<40 cm/s. 3. 50 to 69% stenosis=ICA PSV of 125 to 230 cm/s: ration 2.0 ? 4.0: ICA EDV 40-100 cm/s. 4. Greater than 70% stenosis to near occlusion= ICA PSV > 230 cm/s: ratio > 4.0: ICA EDV > 100 cm/s. 5. Near occlusion= ICA PSV velocities may be low or undetectable: variable ratio and ICA EDV. 6. Total occlusion=unable to detect flow.
== END | disposition home or self-care (01) ==
LOC: RADUSWWP 16:21
PROVIDERS: ATTEND Family Medicine
DX: I65.23 Occlusion and stenosis of bilateral carotid arteries (principal)
CPT/HCPCS: 93880

== ENCOUNTER → 2023-05-22 | Outpatient (CLI) | payer MEDICARE, OTHER ==
[2023-05-22 18:03] LABS: % Iron Saturation 6.34 (12.00-45.00); Ferritin 49.3 ng/mL (10.0-291.0)
== END | disposition home or self-care (01) ==
LOC: LABWHC1 10:39
PROVIDERS: ATTEND Internal Medicine Gastroenterology
DX: D50.9 Iron deficiency anemia, unspecified (principal)
CPT/HCPCS: 36415; 82728; 83540; 83550

== ENCOUNTER → 2023-07-11 | Outpatient (CLI) | payer MEDICARE, OTHER ==
[2023-07-11 13:00] VITALS: BP 150/74; PULSE 77; RESP 16; TEMP 98; BMI 29.6
--- NOTE | 2023-07-11 13:12 | P.BASOAP ---
Subjective Progress Note Date: 07/11/23 Principal diagnosis: Morbid obesity Patient returns for recheck. Last seen in January. Since then patient had recurrent anemia and melanotic stools. 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 She then underwent EGD with cauterization and has done well since then. She stopped her metformin and is now on Ozempic. Complaining of mild heartburn. Nausea is improved. Rare episodes of vomiting. Weight down to 162 today. Objective - Vital Signs Vital signs: Vital Signs Temp 98 F 07/11/23 12:57 Pulse 77 07/11/23 12:57 Resp 16 07/11/23 12:57 BP 150/74 07/11/23 12:57 Pulse Ox FiO2 Intake & Output 07/10/23 07/11/23 07/11/23 18:59 06:59 18:59 Weight 73.482 kg - Exam Abdomen: Soft, nontender, nondistended Assessment/Plan (1) Morbid obesity with BMI of 40.0-44.9, adult Narrative/Plan: 62-year-old female doing well after previous sleeve gastrectomy 4 years ago. Continue dietary and exercise regimen. Follow-up in January. Check annual labs at that time. Continue antiacid therapy at this time. Plan: Date: 07/11/23 Initial Weight: 110.677 kg Initial BMI: 44.6 Current Weight: 73.482 kg Current BMI: 29.6 Type of Surgery: Vertical Sleeve Gastrectomy Total Volume in Band: Previous Volume: Volume Removed: Volume Added: Band Size:
== END ==
LOC: BARWHC3 12:28
PROVIDERS: ATTEND Surgery
DX: E66.01 Morbid (severe) obesity due to excess calories (principal); D64.9 Anemia, unspecified; K63.89 Other specified diseases of intestine; R11.2 Nausea with vomiting, unspecified; Z98.84 Bariatric surgery status; Z90.3 Acquired absence of stomach [part of]; Z71.3 Dietary counseling and surveillance; Z68.41 Body mass index [BMI] 40.0-44.9, adult; Z88.8 Allergy status to other drugs, medicaments and biological substances; Z91.030 Bee allergy status; Z91.041 Radiographic dye allergy status
CPT/HCPCS: 99211

== ENCOUNTER → 2023-08-07 | Outpatient (CLI) | payer MEDICARE, OTHER ==
[2023-08-07 15:05] LABS: Basophils # (A) 0.02 X 10*3/uL (0.00-0.10); Basophils % (A) 0.3 %; Eosinophils # (A) 0.13 X 10*3/uL (0.04-0.35); HCT 39.5 % (37.2-46.3); Lymphocytes # (A) 1.44 X 10*3/uL (0.90-5.00); Lymphocytes % (A) 22.5 %; MCH 26.3 pg (27.0-32.0); MCHC 30.4 g/dL (32.0-37.0); MCV 86.4 FL (80.0-97.0); Mean Platelet Volume 11.3 FL (9.5-12.2); Monocytes # (A) 0.43 X 10*3/uL (0.20-1.00); Monocytes % (A) 6.7 %; NRBC Per 100 WBC 0 X 10*3/uL (0.00-0.01); Neutrophils # (A) 4.38 X 10*3/uL (1.80-7.70); Neutrophils % (A) 68.3 %; Platelet Count 179 X 10*3/uL (140-440); RBC 4.57 X 10*6/uL (4.10-5.20); RDW 14.7 % (11.5-14.5); WBC 6.41 X 10*3/uL (4.50-10.00)
[2023-08-07 15:52] LABS: % Iron Saturation 12.57 (12.00-45.00); ALT 14 U/L (8-44); AST 17 U/L (13-35); Albumin 4.2 g/dL (3.8-4.9); Albumin/Globulin Ratio 1.68 Ratio (1.60-3.17); Alkaline Phosphatase 90 U/L (41-126); BUN/Creat Ratio 17.62 Ratio (12.00-20.00); Blood Urea Nitrogen 14.1 mg/dL (9.0-27.0); Calcium 9.4 mg/dL (8.7-10.3); Carbon Dioxide 26.7 mmol/L (21.6-31.8); Chloride 107 mmol/L (96-109); Chol/HDL Ratio 2.88 Ratio; Creatine Kinase 67 U/L (26-186); Ferritin 13.1 ng/mL (10.0-291.0); Globulin 2.5 g/dL (1.6-3.3); Glucose 129 mg/dL (70-110); Iron 44 UG/DL (50-170); LDL Cholesterol,Calculated 66.5 mg/dL (0.0-131.0); Potassium 3.9 mmol/L (3.5-5.5); Sodium 143 mmol/L (135-145); Total Bilirubin 0.4 mg/dL (0.3-1.2); Total Iron Binding Capacity 350 UG/DL (228-460); Total Protein 6.7 g/dL (6.2-8.2)
== END | disposition home or self-care (01) ==
LOC: LABWHC1 11:20
PROVIDERS: ATTEND Internal Medicine Gastroenterology
DX: E78.5 Hyperlipidemia, unspecified (principal); D50.9 Iron deficiency anemia, unspecified
CPT/HCPCS: 36415; 80053; 80061; 82550; 82607; 82728; 83540; 83550; 85025

== ENCOUNTER → 2023-10-04 | Outpatient (CLI) | payer MEDICARE, OTHER ==
[2023-10-04 15:23] LABS: Basophils # (A) 0.04 X 10*3/uL (0.00-0.10); Basophils % (A) 0.6 %; Eosinophils # (A) 0.16 X 10*3/uL (0.04-0.35); Eosinophils % (A) 2.3 %; HCT 34.2 % (37.2-46.3); HGB 10.5 g/dL (12.0-15.0); Lymphocytes # (A) 1.57 X 10*3/uL (0.90-5.00); Lymphocytes % (A) 22.7 %; MCH 28.2 pg (27.0-32.0); MCHC 30.7 g/dL (32.0-37.0); MCV 91.9 FL (80.0-97.0); Mean Platelet Volume 11.3 FL (9.5-12.2); Monocytes # (A) 0.47 X 10*3/uL (0.20-1.00); Monocytes % (A) 6.8 %; NRBC Per 100 WBC 0 X 10*3/uL (0.00-0.01); Neutrophils # (A) 4.66 X 10*3/uL (1.80-7.70); Neutrophils % (A) 67.2 %; Platelet Count 218 X 10*3/uL (140-440); RBC 3.72 X 10*6/uL (4.10-5.20); RDW 16.1 % (11.5-14.5); WBC 6.93 X 10*3/uL (4.50-10.00)
[2023-10-04 16:00] LABS: Chol/HDL Ratio 2.91 Ratio; LDL Cholesterol,Calculated 62.6 mg/dL (0.0-131.0)
== END | disposition home or self-care (01) ==
LOC: LABWHC1 11:13
PROVIDERS: ATTEND Internal Medicine Interventional Cardiology
DX: E78.5 Hyperlipidemia, unspecified (principal); D50.9 Iron deficiency anemia, unspecified
CPT/HCPCS: 36415; 80061; 85025

== ENCOUNTER → 2023-10-10 | Outpatient (CLI) | payer MEDICARE, OTHER ==
[2023-10-10 18:57] LABS: Basophils # (A) 0.03 X 10*3/uL (0.00-0.10); Basophils % (A) 0.4 %; Eosinophils # (A) 0.19 X 10*3/uL (0.04-0.35); Eosinophils % (A) 2.5 %; HCT 30.9 % (37.2-46.3); HGB 9.6 g/dL (12.0-15.0); Lymphocytes # (A) 1.51 X 10*3/uL (0.90-5.00); Lymphocytes % (A) 19.9 %; MCHC 31.1 g/dL (32.0-37.0); MCV 90.1 FL (80.0-97.0); Mean Platelet Volume 10.5 FL (9.5-12.2); Monocytes # (A) 0.49 X 10*3/uL (0.20-1.00); Monocytes % (A) 6.4 %; NRBC Per 100 WBC 0 X 10*3/uL (0.00-0.01); Neutrophils # (A) 5.36 X 10*3/uL (1.80-7.70); Neutrophils % (A) 70.5 %; Platelet Count 248 X 10*3/uL (140-440); RBC 3.43 X 10*6/uL (4.10-5.20); RDW 16.1 % (11.5-14.5)
== END | disposition home or self-care (01) ==
LOC: LABWHC1 15:09
PROVIDERS: ATTEND Internal Medicine Gastroenterology
DX: D50.9 Iron deficiency anemia, unspecified (principal)
CPT/HCPCS: 36415; 85025

== ENCOUNTER 2023-10-31 08:56 | Day surgery (SDC) | payer MEDICARE, OTHER ==
[2023-10-30 12:19] VITALS: BMI 27.2
[2023-10-31 09:49] VITALS: RESP 16; TEMP 97.2
[2023-10-31] MEDS: IV FLUID CONTINUATION 1,000 ML IV ONE (09:49)
[2023-10-31] MEDS: LACTATED RINGERS 1,000 ML IV SCH (09:54)
[2023-10-31 10:11] LABS: Glucose,Whole Blood 167 mg/dL (70-110)
[2023-10-31] MEDS ORDERED: LIDOCAINE 2% (PF) 20 MG/ML 5 ML VIAL ONE (10:35)
[2023-10-31] MEDS ORDERED: PROPOFOL 10 MG/ML 20 ML VIAL IV ONE (10:35)
--- NOTE | 2023-10-31 10:48 | P.PCN ---
Date of Procedure: 10/31/23 Procedure(s) Performed: BRIEF HISTORY: Patient is a 63-year-old, pleasant, white female scheduled for an upper endoscopy py as a part evaluation of recurrent iron deficient anemia. She did have an EGD colonoscopy January [address] Kulkarni that was unremarkable. Her last EGD was done in May 2023 revealed duodenal angiectasia that was cauterized. History of gastric sleeve surgery. Recently has been having intermittent black tarry stools and hemoglobin of 9 g/dL despite being on iron supplements. PROCEDURE PERFORMED: Esophagogastroduodenoscopy with biopsy. PREOPERATIVE DIAGNOSIS: Intermittent black tarry stools and recurrent iron deficiency anemia. IV sedation per anesthesia. PROCEDURE: After informed consent was obtained, the patient was brought into the endoscopy unit. IV sedation was administered by Anesthesia under continuous monitoring. Initially the Olympus GIF-140 video endoscope was inserted into the mouth. Esophagus intubated without any difficulty. It was gradually advanced into the stomach and duodenum and carefully examined. The bulb and the second part of the duodenum appeared normal. The scope at this time was withdrawn to the stomach, adequately insufflated with air, and upon careful examination, mucosa of the antrum, linear areas of erythema consistent with gastritis and biopsies were done from this area. The mucosa in the gastric sleeve appeared normal. The scope was then withdrawn into the esophagus. Small hiatal hernia noted. The GE junction was located at 35 cm from the incisors. Linear erosions erosions noted in the distal esophagus consistent with LA grade B reflux esophagitis. Rest of the esophagus appeared normal and the patient tolerated the procedure well. IMPRESSION: 1. History of gastric sleeve surgery. 2. Mild antral gastritis 3. Small hiatal hernia and linear erosions of the distal esophagus consistent with LA grade B reflux esophagitis. RECOMMENDATIONS: The findings of this examination were discussed with the patient as well as her family. She was advised to continue with iron supplements. Increase omeprazole to 20 mg twice daily and follow antireflux measures. Follow-up in the office in 2 months.
[2023-10-31 11:04] VITALS: BP 144/74; PULSE 63
== END 2023-10-31 11:25 | disposition home or self-care (01) ==
LOC: ORWHC2ENDO 08:56
PROVIDERS: ATTEND Internal Medicine Gastroenterology
DX: D50.9 Iron deficiency anemia, unspecified
CPT/HCPCS: 43239; 88305

== ENCOUNTER → 2024-01-09 | Outpatient (CLI) | payer MEDICARE, OTHER ==
[2024-01-09 13:25] VITALS: BP 151/73; PULSE 76; RESP 16; TEMP 98.1; BMI 28.5
--- NOTE | 2024-01-09 14:23 | P.BASOAP ---
Subjective Progress Note Date: 01/09/24 Principal diagnosis: Morbid obesity Patient returns for recheck. Doing fairly well since her last visit. Underwent EGD in October by GI. Patient did have esophagitis. She was then started on twice daily antiacids. She stopped drinking soda after that. Her insurance changed her Prilosec to Protonix. She thinks her heartburn may be worse now. Had an episode of regurgitation once. No vomiting. Patient states the foods that she eats are quite limited. She has lost 6 pounds since her last visit. She is due for annual labs. Objective - Vital Signs Vital signs: Vital Signs Temp 98.1 F 01/09/24 13:22 Pulse 76 01/09/24 13:22 Resp 16 01/09/24 13:22 BP 151/73 01/09/24 13:22 Pulse Ox FiO2 Intake & Output 01/08/24 01/09/24 01/09/24 18:59 06:59 18:59 Weight 70.76 kg - Exam Abdomen: Soft, nontender, nondistended Assessment/Plan (1) Morbid obesity with BMI of 40.0-44.9, adult Narrative/Plan: 63-year-old female with history of morbid obesity. Has done well from a weight loss standpoint. BMI down to 28 now. Unfortunately still having heartburn. Did have a small hiatal hernia seen on previous studies. Continue twice daily antiacids. Continue avoiding soda. Check annual labs. Recheck 1 year. Plan: Date: 01/09/24 Initial Weight: 110.677 kg Initial BMI: 44.6 Current Weight: 70.76 kg Current BMI: 28.5 Type of Surgery: Total Volume in Band: Previous Volume: Volume Removed: Volume Added: Band Size:
== END ==
LOC: BARWHC3 13:12
PROVIDERS: ATTEND Surgery
DX: E66.01 Morbid (severe) obesity due to excess calories (principal); Z68.28 Body mass index [BMI] 28.0-28.9, adult; K44.9 Diaphragmatic hernia without obstruction or gangrene; Z91.030 Bee allergy status; Z91.041 Radiographic dye allergy status; Z88.8 Allergy status to other drugs, medicaments and biological substances; Z88.9 Allergy status to unspecified drugs, medicaments and biological substances
CPT/HCPCS: 99211

== ENCOUNTER → 2024-05-07 | Outpatient (CLI) | payer MEDICARE, OTHER ==
[2024-05-07 15:18] LABS: ALT 25 U/L (8-44); AST 19 U/L (13-35); Alkaline Phosphatase 71 U/L (41-126); BUN/Creat Ratio 16.12 Ratio (12.00-20.00); Blood Urea Nitrogen 12.9 mg/dL (9.0-27.0); Calcium 9.5 mg/dL (8.7-10.3); Carbon Dioxide 27.3 mmol/L (21.6-31.8); Chloride 100 mmol/L (96-109); Globulin 2.5 g/dL (1.6-3.3); Glucose 153 mg/dL (70-110); Iron 54 UG/DL (50-170); Potassium 4.5 mmol/L (3.5-5.5); Sodium 137 mmol/L (135-145); Total Bilirubin 0.5 mg/dL (0.3-1.2); Total Protein 6.5 g/dL (6.2-8.2)
[2024-05-07 15:52] LABS: Basophils # (A) 0.03 X 10*3/uL (0.00-0.10); Basophils % (A) 0.4 %; Eosinophils # (A) 0.11 X 10*3/uL (0.04-0.35); Eosinophils % (A) 1.3 %; HGB 12.3 g/dL (12.0-15.0); Lymphocytes # (A) 1.96 X 10*3/uL (0.90-5.00); Lymphocytes % (A) 23.7 %; MCH 27.3 pg (27.0-32.0); MCV 90.9 FL (80.0-97.0); Monocytes # (A) 0.53 X 10*3/uL (0.20-1.00); Monocytes % (A) 6.4 %; NRBC Per 100 WBC 0 X 10*3/uL (0.00-0.01); Neutrophils # (A) 5.62 X 10*3/uL (1.80-7.70); Neutrophils % (A) 67.8 %; Platelet Count 230 X 10*3/uL (140-440); RBC 4.51 X 10*6/uL (4.10-5.20); RDW 15.7 % (11.5-14.5); WBC 8.28 X 10*3/uL (4.50-10.00)
== END | disposition home or self-care (01) ==
LOC: LABWHC1 09:20
PROVIDERS: ATTEND Surgery
DX: E66.01 Morbid (severe) obesity due to excess calories (principal); D50.9 Iron deficiency anemia, unspecified; E89.1 Postprocedural hypoinsulinemia; E55.9 Vitamin D deficiency, unspecified; K90.89 Other intestinal malabsorption
CPT/HCPCS: 36415; 80053; 82306; 82607; 82746; 83036; 83540; 84425; 85025

== ENCOUNTER → 2024-06-07 | Outpatient (CLI) | payer MEDICARE, OTHER ==
--- NOTE | 2024-06-07 15:20 | MR ---
EXAMINATION TYPE: MR shoulder LT wo con DATE OF EXAM: 06/07/2024 2:21 PM COMPARISON: None. CLINICAL INDICATION: Female, 63 years old with history of M75.122 COMPLETE Rotator cuff TEAR/RUPTR OF LEFT SH, Left shoulder pain, decreased ROM for 2 years. History of prior surgery November 30, 2023 IV Contrast: cc (None if empty) TECHNIQUE: Multiplanar, multisequence imaging of the left shoulder is performed without contrast. FINDINGS: Rotator Cuff: Intact infraspinatus tendon. Some heterogeneous increased signal in the supraspinatus t endon distally. Mild heterogeneity of the subscapularis tendon. Rotator cuff muscle bulk is preserved . Acromioclavicular Joint: Moderate narrowing and capsular hypertrophy. Mild to moderate spurring. Type II downsloping acromion. Underlying fat plane is maintained. Glenohumeral Joint: Small joint effusion. No significant spurring. Labrum: The labrum appears grossly intact given limitation of non-arthrogram study. Biceps Tendon: The long head of biceps is in normal location within bicipital groove. Increased signa l the intracapsular portion is present sagittal images 9 through 12 Bone marrow signal: Tiny subchondral cystic change at the acromioclavicular joint. Other: Loss of normal fat in the rotator cuff interval is identified. IMPRESSION: 1. Loss of normal fat in the rotator cuff interval is consistent with suspicion for adhesive capsulit is. 2. Mild tendinosis of subscapularis tendon. [id number] tendinosis of the supraspinatus tendon. 3. Tendinosis/partial tearing of the intracapsular portion of the long head of biceps tendon. 4. Fairly moderate degenerative changes are present as detailed above. [facility], , 06/07/2024 3:17 PM
== END | disposition home or self-care (01) ==
LOC: RADMRIMAIN 13:01
PROVIDERS: ATTEND Orthopaedic Surgery
DX: M75.122 Complete rotator cuff tear or rupture of left shoulder, not specified as traumatic (principal); M67.814 Other specified disorders of tendon, left shoulder; M17.12 Unilateral primary osteoarthritis, left knee